=== PATIENT | female | born 1980 | race Two or more races ===

== ENCOUNTER 2022-05-28 12:00 | Emergency (ER) | payer MEDICAID ==
[~2022-05-28] VITALS: Ht 162.6 cm; Wt 81.0 kg
[2022-05-28 12:49] VITALS: BP 108/68
[2022-05-28] MEDS ORDERED: cefTRIAXone SOD 1,000 MG VL IM ONE (13:00)
[2022-05-28 13:14] LABS: Urine Bacteria NONE SEEN /hpf (None Seen); Urine Blood 1+ /uL (Negative); Urine Mucus FEW (None Seen); Urine Specific Gravity 1.026 (1.001-1.035); Urine WBC 11 /hpf (0 - 5)
[2022-05-28] MEDS ORDERED: BACDST PO (13:48)
[2022-05-28] MEDS ORDERED: ACET-1080 PO (13:48)
[2022-05-29] MEDS ORDERED: ACET-1080 PO (17:20)
[2022-05-29] MEDS ORDERED: BACDST PO (17:20)
== END 2022-05-28 13:53 | disposition home or self-care (01) ==
LOC: ER 12:00
DX: N39.0 Urinary tract infection, site not specified (principal); J03.90 Acute tonsillitis, unspecified; R07.89 Other chest pain
CPT/HCPCS: 71045; 81001; 81025; 96372; 99284; J0696

== ENCOUNTER 2022-07-14 12:34 | Emergency (ER) | payer MEDICAID ==
[~2022-07-14] VITALS: Ht 162.6 cm; Wt 78.3 kg
[~2022-07-14 12:34] MED LIST: ACET-1080 PO; BACDST PO
[2022-07-14] MEDS ORDERED: ACETAMINOPHEN 325 MG TAB PO ONE (14:15)
[2022-07-14 15:07] LABS: Urine Bacteria NONE SEEN /hpf (None Seen); Urine Blood 3+ /uL (Negative); Urine Mucus MODERATE (None Seen); Urine Specific Gravity 1.028 (1.001-1.035); Urine WBC 42 /hpf (0 - 5)
[2022-07-14] MEDS ORDERED: CIPROFLOXACIN HCL 500 MG TAB PO ONE (16:00)
[2022-07-14] MEDS ORDERED: CIPR-173 PO (16:01)
[2022-07-14 16:45] VITALS: BP 115/77
== END 2022-07-14 16:53 | disposition home or self-care (01) ==
LOC: ER 12:34
DX: N39.0 Urinary tract infection, site not specified (principal); R50.9 Fever, unspecified; Z88.1 Allergy status to other antibiotic agents; Z88.2 Allergy status to sulfonamides
CPT/HCPCS: 81001

== ENCOUNTER 2023-04-26 12:10 | Inpatient (IN) | payer MEDICAID ==
[~2023-04-26] VITALS: Ht 165.1 cm; Wt 55.1 kg
[~2023-04-26 12:10] MED LIST changes: +CIPR-173 PO
[2023-04-26 15:19] LABS: Basophils # (auto) 0 10 ^3/uL (0-0.2); Basophils % (auto) 0.3 % (0.0-2.0); Eosinophils # (auto) 0.2 10 ^3/uL (0-0.8); Eosinophils % (auto) 1.9 % (0.0-7.0); Hematocrit 39.8 % (36.0-46.0); Hemoglobin 13.4 g/dL (12.2-16.2); Lymphocytes # (auto) 2.3 10 ^3/uL (0.4-5.4); Mean Corpuscular Hemoglobin 29.3 pg (28.0-32.0); Mean Corpuscular Hgb Conc. 33.7 g/dL (32.0-36.0); Monocytes # (auto) 0.9 10 ^3/uL (0-1.3); Monocytes % (auto) 8.8 % (0.0-12.0); Neutrophils # (auto) 6.5 10 ^3/uL (1.6-8.6); Nucleated Red Blood Cells % 0.1 %; Red Blood Cells 4.57 10^6/uL (4.0-5.20); Red Cell Distribution Width 15.8 % (11.8-14.3); White Blood Cell 9.8 10^3/uL (4.4-10.8)
[2023-04-26 15:38] LABS: Alanine Aminotransferase 14 U/L (7-40); Albumin 4.6 g/dL (3.2-4.8); Alkaline Phosphatase 69 U/L (46-116); Anion Gap 10 (5-15); Aspartate Aminotransferase 15 U/L (13-40); BUN/Creatinine Ratio 34.8 (10.0-20.0); Bilirubin, Total 0.7 mg/dL (0.2-1.0); Blood Urea Nitrogen 23 mg/dL (9-23); Calcium 9.8 mg/dL (8.7-10.4); Carbon Dioxide 25 mmol/L (20-30); Chloride 105 mmol/L (98-107); Glucose 100 mg/dL (74-106); Lipase 26 U/L (12-53); Sodium 140 mmol/L (136-145); Total Protein 7.3 g/dL (5.7-8.2)
[2023-04-26 16:39] LABS: INR 1.05 (0.9-1.15)
[2023-04-26 18:10] VITALS: PULSE 95; RESP 14; O2SAT 95
[2023-04-26] MEDS: SODIUM CHLORIDE 0.9% 1,650 ML IV ONE (18:24)
[2023-04-26] MEDS ORDERED: DOCUSATE SOD 100 MG CAP PO PRN (18:30)
[2023-04-26 19:40] VITALS: PULSE 85; RESP 18; O2SAT 97
[2023-04-26 20:52] LABS: Urine Bacteria NONE SEEN /hpf (None Seen); Urine Blood Negative /uL (Negative); Urine Clarity Clear (Clear); Urine Color Yellow (Yellow); Urine Mucus FEW (None Seen); Urine Protein, UAD 1+ (Negative); Urine Specific Gravity 1.027 (1.001-1.035); Urine WBC <1 /hpf (0 - 5); Urine pH 6.5 (5.0-8.0)
[2023-04-26] MEDS: ONDANSETRON HCL 4 MG/2 ML VIAL IV ONE (21:16)
[2023-04-26] MEDS: SODIUM CHLORIDE 0.9% 1,000 ML IV SCH (21:17)
[2023-04-26] MEDS: MORPHINE SULFATE INJ 2 MG/ml SYRG IV PRN (22:52)
[2023-04-26 23:03] LABS: Hematocrit 37.5 % (36.0-46.0); Hemoglobin 12.2 g/dL (12.2-16.2)
[2023-04-27] MEDS: PIPERACILLIN-TAZOB 3.375GM 100 ML IV SCH (00:03)
[2023-04-27] MEDS ORDERED: ACETAMINOPHEN 325 MG TAB PO PRN (02:15)
[2023-04-27] MEDS: ACETAMINOPHEN 650 MG RECT SUPP PR ONE (02:49)
[2023-04-27 06:10] LABS: Alkaline Phosphatase 56 U/L (46-116); Anion Gap 10 (5-15); Aspartate Aminotransferase 15 U/L (13-40); BUN/Creatinine Ratio 21.9 (10.0-20.0); Basophils # (auto) 0 10 ^3/uL (0-0.2); Basophils % (auto) 0.3 % (0.0-2.0); Bilirubin, Total 0.9 mg/dL (0.2-1.0); Blood Urea Nitrogen 14 mg/dL (9-23); Calcium 9.2 mg/dL (8.5-10.1); Carbon Dioxide 23 mmol/L (20-30); Chloride 110 mmol/L (98-107); Eosinophils # (auto) 0.2 10 ^3/uL (0-0.8); Eosinophils % (auto) 2.1 % (0.0-7.0); Glucose 94 mg/dL (74-106); Hematocrit 34.4 % (36.0-46.0); Hemoglobin 11.5 g/dL (12.2-16.2); Lymphocytes # (auto) 2.9 10 ^3/uL (0.4-5.4); Lymphocytes % (auto) 33.1 % (10.0-50.0); Mean Corpuscular Hemoglobin 29.1 pg (28.0-32.0); Mean Corpuscular Hgb Conc. 33.3 g/dL (32.0-36.0); Mean Corpuscular Volume 87.3 fL (80.0-100.0); Monocytes # (auto) 0.9 10 ^3/uL (0-1.3); Monocytes % (auto) 9.9 % (0.0-12.0); Neutrophils # (auto) 4.8 10 ^3/uL (1.6-8.6); Neutrophils % (auto) 54.6 % (37.0-80.0); Nucleated Red Blood Cells % 0.1 %; Potassium 3.1 mmol/L (3.5-5.1); Red Blood Cells 3.94 10^6/uL (4.0-5.20); Red Cell Distribution Width 15.6 % (11.8-14.3); Sodium 143 mmol/L (136-145); Total Protein 6.4 g/dL (5.7-8.2); White Blood Cell 8.9 10^3/uL (4.4-10.8)
[2023-04-27 06:11] LABS: Alanine Aminotransferase 9 U/L (7-40)
[2023-04-27] MEDS: GASTROGRAFIN 120 ML SOL ONE (08:51)
[2023-04-27] MEDS: PANTOPRAZOLE 40 MG/10 ML VIAL INJ IV SCH (10:00)
[2023-04-27] MEDS: ENOXAPARIN SOD 40 MG/0.4 ML SYRINGE SC SCH (10:00)
[2023-04-27] MEDS: ONDANSETRON HCL 4 MG/2 ML VIAL IV PRN (15:55)
[2023-04-27 16:00] VITALS: PULSE 113; RESP 20; O2SAT 96
[2023-04-27] MEDS: LORazepam 2MG/ML-1ML VIAL ONE (16:05)
[2023-04-27] MEDS: LORazepam 2MG/ML-1ML VIAL IV PRN (16:42)
[2023-04-27] MEDS: POTASSIUM CHLORIDE 20 MEQ, LIDOCAINE 1% (LOCAL ANESTH.) 2 ML in SODIUM CHL 0.9% 100 ML IV ONE (17:00)
[2023-04-27] MEDS: D5W/SOD CHL 0.45%/KCL 40MEQ 1,000 ML IV SCH (17:14)
[2023-04-27 23:58] VITALS: BP 101/68; PULSE 82; RESP 16; TEMP 98.8; O2SAT 99
[2023-04-28] VITALS (7 sets, daily range): BP systolic 94–109; BP diastolic 49–65; PULSE 79–84; RESP 14–18; TEMP 97.9–98.9; O2SAT 96–97
[2023-04-28 07:37] LABS: Anion Gap 6 (5-15); Carbon Dioxide 26 mmol/L (20-30); Chloride 109 mmol/L (98-107); Potassium 3.6 mmol/L (3.5-5.1); Sodium 141 mmol/L (136-145)
[2023-04-28 07:38] LABS: Calcium 9.4 mg/dL (8.5-10.1)
[2023-04-28 07:43] LABS: BUN/Creatinine Ratio 13.3 (10.0-20.0); Blood Urea Nitrogen 8 mg/dL (9-23); Glucose 95 mg/dL (74-106)
[2023-04-28 07:45] LABS: Basophils # (auto) 0 10 ^3/uL (0-0.2); Basophils % (auto) 0.3 % (0.0-2.0); Eosinophils # (auto) 0.3 10 ^3/uL (0-0.8); Hematocrit 31.8 % (36.0-46.0); Hemoglobin 10.7 g/dL (12.2-16.2); Lymphocytes # (auto) 1.4 10 ^3/uL (0.4-5.4); Mean Corpuscular Hemoglobin 29.6 pg (28.0-32.0); Mean Corpuscular Hgb Conc. 33.6 g/dL (32.0-36.0); Mean Corpuscular Volume 87.9 fL (80.0-100.0); Monocytes # (auto) 0.7 10 ^3/uL (0-1.3); Monocytes % (auto) 10.8 % (0.0-12.0); Neutrophils # (auto) 4.1 10 ^3/uL (1.6-8.6); Neutrophils % (auto) 62.9 % (37.0-80.0); Red Blood Cells 3.62 10^6/uL (4.0-5.20); Red Cell Distribution Width 15.9 % (11.8-14.3); White Blood Cell 6.5 10^3/uL (4.4-10.8)
[2023-04-28] MEDS: PANTOPRAZOLE 40 MG/10 ML VIAL INJ IV SCH (13:46)
[2023-04-28] MEDS ORDERED: MIRT1TAB39 PO (16:35)
[2023-04-28] MEDS ORDERED: CARB25TA77 (16:35)
[2023-04-28] MEDS ORDERED: ASPI81CH59 PO (16:35)
[2023-04-28] MEDS ORDERED: ASPI-463 OR (16:35)
[2023-04-28] MEDS ORDERED: ERGO1CAP12 PO (16:35)
[2023-04-28] MEDS ORDERED: ARIP5TAB36 PO (16:35)
[2023-04-28] MEDS ORDERED: HYDR50TA69 PO (16:35)
[2023-04-28] MEDS ORDERED: SIMV40TA18 PO (16:35)
[2023-04-28] MEDS ORDERED: VENL225T10 PO (16:35)
[2023-04-28] MEDS ORDERED: TRAZ-184 PO (16:35)
[2023-04-29] VITALS (7 sets, daily range): BP systolic 87–97; BP diastolic 45–59; PULSE 76–89; RESP 18–20; TEMP 97.9–98.3; O2SAT 95–98
[2023-04-29 05:07] LABS: Basophils # (auto) 0 10 ^3/uL (0-0.2); Basophils % (auto) 0.4 % (0.0-2.0); Eosinophils # (auto) 0.2 10 ^3/uL (0-0.8); Eosinophils % (auto) 3.7 % (0.0-7.0); Hematocrit 34.7 % (36.0-46.0); Hemoglobin 11.5 g/dL (12.2-16.2); Lymphocytes # (auto) 1.6 10 ^3/uL (0.4-5.4); Mean Corpuscular Hemoglobin 29.2 pg (28.0-32.0); Mean Corpuscular Hgb Conc. 33.3 g/dL (32.0-36.0); Mean Corpuscular Volume 87.8 fL (80.0-100.0); Monocytes # (auto) 0.6 10 ^3/uL (0-1.3); Monocytes % (auto) 9.4 % (0.0-12.0); Neutrophils # (auto) 4.2 10 ^3/uL (1.6-8.6); Neutrophils % (auto) 62.5 % (37.0-80.0); Nucleated Red Blood Cells % 0.1 %; Red Blood Cells 3.95 10^6/uL (4.0-5.20); Red Cell Distribution Width 15.3 % (11.8-14.3); White Blood Cell 6.8 10^3/uL (4.4-10.8)
[2023-04-29 05:13] LABS: Chloride 105 mmol/L (98-107); Potassium 3.6 mmol/L (3.5-5.1); Sodium 137 mmol/L (136-145)
[2023-04-29 05:14] LABS: Anion Gap 6 (5-15); Carbon Dioxide 26 mmol/L (20-30)
[2023-04-29 05:15] LABS: Calcium 8.9 mg/dL (8.5-10.1)
[2023-04-29 05:20] LABS: BUN/Creatinine Ratio 9.1 (10.0-20.0); Blood Urea Nitrogen 6 mg/dL (9-23); Glucose 107 mg/dL (74-106)
[2023-04-29] MEDS: LORazepam 2MG/ML-1ML VIAL IV PRN (23:37)
[2023-04-30] VITALS (7 sets, daily range): BP systolic 84–101; BP diastolic 52–57; PULSE 79–97; RESP 14–20; TEMP 97.5–98.9; O2SAT 95–98
[2023-04-30 05:11] LABS: Basophils # (auto) 0 10 ^3/uL (0-0.2); Basophils % (auto) 0.6 % (0.0-2.0); Eosinophils # (auto) 0.2 10 ^3/uL (0-0.8); Eosinophils % (auto) 4.1 % (0.0-7.0); Hematocrit 35.5 % (36.0-46.0); Hemoglobin 11.8 g/dL (12.2-16.2); Lymphocytes % (auto) 19.3 % (10.0-50.0); Mean Corpuscular Hgb Conc. 33.4 g/dL (32.0-36.0); Monocytes # (auto) 0.6 10 ^3/uL (0-1.3); Monocytes % (auto) 10.8 % (0.0-12.0); Neutrophils # (auto) 3.3 10 ^3/uL (1.6-8.6); Neutrophils % (auto) 65.2 % (37.0-80.0); Red Blood Cells 4.08 10^6/uL (4.0-5.20); Red Cell Distribution Width 15.6 % (11.8-14.3); White Blood Cell 5.1 10^3/uL (4.4-10.8)
[2023-04-30 05:35] LABS: Alkaline Phosphatase 51 U/L (46-116); Anion Gap 6 (5-15); Calcium 9.6 mg/dL (8.7-10.4); Carbon Dioxide 25 mmol/L (20-30); Chloride 107 mmol/L (98-107); Glucose 114 mg/dL (74-106); Potassium 3.6 mmol/L (3.5-5.1); Sodium 138 mmol/L (136-145)
[2023-04-30 05:36] LABS: Albumin 3.9 g/dL (3.2-4.8); Aspartate Aminotransferase 12 U/L (13-40)
[2023-04-30 05:37] LABS: Bilirubin, Total 0.7 mg/dL (0.2-1.0); Total Protein 6.5 g/dL (5.7-8.2)
[2023-04-30 05:45] LABS: Alanine Aminotransferase < 9 U/L (7-40); BUN/Creatinine Ratio 7.7 (10.0-20.0); Blood Urea Nitrogen < 5 mg/dL (9-23)
[2023-04-30] MEDS: ACETAMINOPHEN 325 MG RECT SUPP PR PRN (14:00)
[2023-04-30] MEDS ORDERED: PATIENTS OWN MEDICATION IM SCH (15:15)
[2023-05-01 04:53] VITALS: BP 88/55; PULSE 72; RESP 20; TEMP 98.4; O2SAT 98
[2023-05-01 08:00] VITALS: PULSE 87; RESP 16; O2SAT 97
[2023-05-01 09:00] VITALS: BP 80/53; PULSE 86; RESP 20; TEMP 97.4; O2SAT 97
[2023-05-01] MEDS: ACETAMINOPHEN 500 MG TAB PO PRN (12:25)
[2023-05-01 13:00] VITALS: BP 88/53; PULSE 69; RESP 20; TEMP 97.5; O2SAT 100
[2023-05-01 17:00] VITALS: BP 91/54; PULSE 77; RESP 20; TEMP 98; O2SAT 100
[2023-05-01 22:00] VITALS: BP 98/60; PULSE 92; RESP 18; TEMP 98.6; O2SAT 98
[2023-05-02 05:27] VITALS: BP 101/67; PULSE 103; RESP 18; TEMP 98.6; O2SAT 94
[2023-05-02 08:00] VITALS: O2SAT 97
[2023-05-02 09:00] VITALS: BP 115/90; PULSE 115; RESP 16; TEMP 98.1; O2SAT 98
[2023-05-02 12:52] VITALS: BP 100/72; PULSE 78; RESP 17; TEMP 97.9; O2SAT 98
[2023-05-02 16:43] VITALS: BP 113/60; PULSE 112; RESP 17; TEMP 98.4; O2SAT 97
[2023-05-02 21:40] VITALS: BP 93/59; PULSE 96; RESP 16; TEMP 98.2; O2SAT 97
[2023-05-03] VITALS (7 sets, daily range): BP systolic 88–111; BP diastolic 27–77; PULSE 63–97; RESP 16–18; TEMP 97.8–98.2; O2SAT 96–100
[2023-05-03] MEDS: D5W/SOD CHL 0.45%/KCL 40MEQ 1,000 ML IV SCH (17:15)
[2023-05-03] MEDS ORDERED: PPN PER PHARMACY 0 ML IV SCH (17:15)
[2023-05-03] MEDS ORDERED: DEXTROSE (50%) 50ML SYRG IV SCH (18:15)
[2023-05-03 19:47] LABS: Magnesium 1.9 mg/dL (1.6-2.6)
[2023-05-03 19:49] LABS: Phosphorus 3.4 mg/dL (2.4-5.1)
[2023-05-03] MEDS: AMINO ACID INFUSION IN D10W 1,000 ML IV ONE (19:49)
[2023-05-03] MEDS: ACCU-CHEK COMFORT CURVE STRIP VI SCH (23:46)
[2023-05-03] MEDS: METOCLOPRAMIDE HCL 5MG/ml INJ 2ml VIAL IV SCH (23:46)
[2023-05-03] MEDS: InsuLIN REG 1unit/0.01ml Soln (100units/ml) SC SCH (23:48)
[2023-05-04] VITALS (7 sets, daily range): BP systolic 87–158; BP diastolic 52–86; PULSE 67–101; RESP 16–18; TEMP 97.5–98.4; O2SAT 97–98
[2023-05-04 06:58] LABS: Basophils # (auto) 0 10 ^3/uL (0-0.2); Eosinophils # (auto) 0.2 10 ^3/uL (0-0.8); Eosinophils % (auto) 5.6 % (0.0-7.0); Hematocrit 34.8 % (36.0-46.0); Hemoglobin 11.5 g/dL (12.2-16.2); Lymphocytes # (auto) 1.6 10 ^3/uL (0.4-5.4); Lymphocytes % (auto) 38.6 % (10.0-50.0); Mean Corpuscular Hemoglobin 29.3 pg (28.0-32.0); Mean Corpuscular Hgb Conc. 32.9 g/dL (32.0-36.0); Monocytes # (auto) 0.4 10 ^3/uL (0-1.3); Monocytes % (auto) 10.7 % (0.0-12.0); Neutrophils # (auto) 1.8 10 ^3/uL (1.6-8.6); Neutrophils % (auto) 44.1 % (37.0-80.0); Red Blood Cells 3.91 10^6/uL (4.0-5.20); Red Cell Distribution Width 16.2 % (11.8-14.3); White Blood Cell 4.2 10^3/uL (4.4-10.8)
[2023-05-04 07:08] LABS: Alanine Aminotransferase 27 U/L (7-40); Albumin 3.7 g/dL (3.2-4.8); Alkaline Phosphatase 48 U/L (46-116); Anion Gap 6 (5-15); Aspartate Aminotransferase 27 U/L (13-40); Bilirubin, Total 0.7 mg/dL (0.2-1.0); Calcium 9.2 mg/dL (8.7-10.4); Carbon Dioxide 23 mmol/L (20-30); Chloride 110 mmol/L (98-107); Glucose 111 mg/dL (74-106); Magnesium 1.8 mg/dL (1.6-2.6); Phosphorus 3.2 mg/dL (2.4-5.1); Potassium 3.5 mmol/L (3.5-5.1); Sodium 139 mmol/L (136-145)
[2023-05-04 07:16] LABS: BUN/Creatinine Ratio 8.3 (10.0-20.0); Blood Urea Nitrogen < 5 mg/dL (9-23)
[2023-05-04] MEDS: PPN PER PHARMACY IV NR (20:36)
[2023-05-05] VITALS (7 sets, daily range): BP systolic 92–139; BP diastolic 52–86; PULSE 91–123; RESP 20; TEMP 97.4–100.2; O2SAT 94–99
[2023-05-05 05:40] LABS: Alanine Aminotransferase 33 U/L (7-40); Albumin 3.9 g/dL (3.2-4.8); Alkaline Phosphatase 50 U/L (46-116); Anion Gap 7 (5-15); Aspartate Aminotransferase 30 U/L (13-40); BUN/Creatinine Ratio 10.5 (10.0-20.0); Bilirubin, Total 0.5 mg/dL (0.2-1.0); Blood Urea Nitrogen 6 mg/dL (9-23); Carbon Dioxide 23 mmol/L (20-30); Chloride 110 mmol/L (98-107); Glucose 105 mg/dL (74-106); Magnesium 1.8 mg/dL (1.6-2.6); Phosphorus 2.6 mg/dL (2.4-5.1); Potassium 3.2 mmol/L (3.5-5.1); Sodium 140 mmol/L (136-145)
[2023-05-05 05:41] LABS: Total Protein 6.5 g/dL (5.7-8.2)
[2023-05-05] MEDS: POLYETHYLENE GLYCOL 17 GM PWDR PO SCH (10:10)
[2023-05-05] MEDS ORDERED: VANCOMYCIN PER PHARMACY 0 MG IV SCH (10:45)
[2023-05-05] MEDS: POTASSIUM PHOSPHATE 44 MEQ in D5W 5% 250 ML IV ONE (11:00)
[2023-05-05] MEDS: VANCOMYCIN 1GM/200ML 200 ML IV ONE (11:35)
[2023-05-05] MEDS: PPN PER PHARMACY IV NR (20:16)
[2023-05-05] MEDS: VANCOMYCIN 750mg/150ml 150 ML IV SCH (21:00)
[2023-05-06] VITALS (7 sets, daily range): BP systolic 95–120; BP diastolic 60–95; PULSE 82–100; RESP 16–22; TEMP 36.9; O2SAT 92–100
[2023-05-06 06:20] LABS: Basophils # (auto) 0.1 10 ^3/uL (0-0.2); Basophils % (auto) 0.7 % (0.0-2.0); Eosinophils # (auto) 0.2 10 ^3/uL (0-0.8); Hematocrit 36.7 % (36.0-46.0); Hemoglobin 12.4 g/dL (12.2-16.2); Lymphocytes # (auto) 1.8 10 ^3/uL (0.4-5.4); Lymphocytes % (auto) 24.2 % (10.0-50.0); Mean Corpuscular Hemoglobin 29.7 pg (28.0-32.0); Mean Corpuscular Hgb Conc. 33.9 g/dL (32.0-36.0); Mean Corpuscular Volume 87.6 fL (80.0-100.0); Monocytes # (auto) 0.7 10 ^3/uL (0-1.3); Monocytes % (auto) 8.9 % (0.0-12.0); Neutrophils # (auto) 4.8 10 ^3/uL (1.6-8.6); Neutrophils % (auto) 64.2 % (37.0-80.0); Nucleated Red Blood Cells % 0.2 %; Red Blood Cells 4.19 10^6/uL (4.0-5.20); Red Cell Distribution Width 15.3 % (11.8-14.3); White Blood Cell 7.5 10^3/uL (4.4-10.8)
[2023-05-06 06:44] LABS: Alanine Aminotransferase 37 U/L (7-40); Albumin 4.1 g/dL (3.2-4.8); Alkaline Phosphatase 55 U/L (46-116); Anion Gap 7 (5-15); Aspartate Aminotransferase 31 U/L (13-40); Bilirubin, Total 0.5 mg/dL (0.2-1.0); Blood Urea Nitrogen 7 mg/dL (9-23); Calcium 9.1 mg/dL (8.7-10.4); Carbon Dioxide 23 mmol/L (20-30); Chloride 108 mmol/L (98-107); Glucose 112 mg/dL (74-106); Magnesium 2.3 mg/dL (1.6-2.6); Phosphorus 2.3 mg/dL (2.4-5.1); Potassium 3.5 mmol/L (3.5-5.1); Sodium 138 mmol/L (136-145); Total Protein 6.9 g/dL (5.7-8.2)
[2023-05-06] MEDS: cefTRIAXone 1GM/50ML D5W 50 ML IV SCH (09:58)
[2023-05-06] MEDS: POTASSIUM PHOSPHATE 22 MEQ in SODIUM CHL 0.9% 100 ML IV ONE (18:22)
[2023-05-06] MEDS: PPN PER PHARMACY IV NR (20:39)
[2023-05-07 04:45] VITALS: BP 88/58; PULSE 110; RESP 20; TEMP 98.9; O2SAT 97
[2023-05-07] MEDS: SODIUM CHLORIDE 0.9% 500 ML IV ONE (05:22)
[2023-05-07 07:30] VITALS: TEMP 37.2
[2023-05-07 07:53] LABS: Calcium 8.8 mg/dL (8.5-10.1)
[2023-05-07 07:58] LABS: BUN/Creatinine Ratio 20.8 (10.0-20.0)
[2023-05-07 08:00] LABS: Albumin 3.6 g/dL (3.2-4.8); Phosphorus 3.3 mg/dL (2.4-5.1)
[2023-05-07 08:51] VITALS: BP 101/47; PULSE 90; RESP 18; TEMP 97.6; O2SAT 100
[2023-05-07 09:15] LABS: Magnesium 2.2 mg/dL (1.6-2.6)
[2023-05-07 12:56] VITALS: BP 116/57; PULSE 96; RESP 18; TEMP 98; O2SAT 96
[2023-05-07 16:52] VITALS: BP 126/75; PULSE 110; RESP 22; TEMP 97.9; O2SAT 96
[2023-05-07 20:00] VITALS: RESP 16
[2023-05-07] MEDS: PPN PER PHARMACY IV NR (23:43)
[2023-05-07] MEDS: LORazepam 2MG/ML-1ML VIAL IV PRN (23:46)
[2023-05-08] VITALS (8 sets, daily range): BP systolic 105–150; BP diastolic 51–86; PULSE 104–117; RESP 16–62; TEMP 96.9–98.5; O2SAT 95–99
[2023-05-08] MEDS: MORPHINE SULFATE INJ 2 MG/ml SYRG IV PRN (04:41)
[2023-05-08 08:02] LABS: Alanine Aminotransferase 36 U/L (7-40); Albumin 3.9 g/dL (3.2-4.8); Alkaline Phosphatase 57 U/L (46-116); Anion Gap 8 (5-15); Aspartate Aminotransferase 27 U/L (13-40); Calcium 8.9 mg/dL (8.7-10.4); Carbon Dioxide 23 mmol/L (20-30); Chloride 107 mmol/L (98-107); Glucose 117 mg/dL (74-106); Phosphorus 2.3 mg/dL (2.4-5.1); Potassium 3.4 mmol/L (3.5-5.1); Sodium 138 mmol/L (136-145)
[2023-05-08 08:20] LABS: Bilirubin, Total 0.4 mg/dL (0.2-1.0); Total Protein 6.6 g/dL (5.7-8.2)
[2023-05-08 09:41] LABS: BUN/Creatinine Ratio 19.6 (10.0-20.0); Blood Urea Nitrogen 10 mg/dL (9-23)
[2023-05-08] MEDS: POTASSIUM PHOSPHATE 22 MEQ in SODIUM CHL 0.9% 100 ML IV ONE (12:00)
[2023-05-08] MEDS: PPN PER PHARMACY IV NR (19:55)
[2023-05-09 05:25] VITALS: BP_SYST 88; BP_SYST 93; BP_DIAS 49; BP_DIAS 58; PULSE 60; RESP 16; TEMP 97.6; O2SAT 98
[2023-05-09 06:47] LABS: Alanine Aminotransferase 33 U/L (7-40); Albumin 3.5 g/dL (3.2-4.8); Alkaline Phosphatase 54 U/L (46-116); Anion Gap 6 (5-15); Aspartate Aminotransferase 26 U/L (13-40); BUN/Creatinine Ratio 28.9 (10.0-20.0); Blood Urea Nitrogen 13 mg/dL (9-23); Calcium 8.7 mg/dL (8.7-10.4); Carbon Dioxide 25 mmol/L (20-30); Chloride 104 mmol/L (98-107); Glucose 196 mg/dL (74-106); Magnesium 2.3 mg/dL (1.6-2.6); Potassium 4.7 mmol/L (3.5-5.1); Sodium 135 mmol/L (136-145)
[2023-05-09 06:48] LABS: Bilirubin, Total 0.4 mg/dL (0.2-1.0); Phosphorus 4.1 mg/dL (2.4-5.1); Total Protein 5.7 g/dL (5.7-8.2)
[2023-05-09 08:00] VITALS: RESP 18
[2023-05-09 09:35] VITALS: BP 95/53; PULSE 89; RESP 18; TEMP 96.9; O2SAT 99
[2023-05-09 13:39] VITALS: BP 122/52; PULSE 114; RESP 20; TEMP 97.4; O2SAT 99
[2023-05-09 17:22] VITALS: BP 117/75; PULSE 111; RESP 20; TEMP 98; O2SAT 99
[2023-05-09 21:43] VITALS: BP 118/59; PULSE 137; RESP 22; TEMP 98.4; O2SAT 94
[2023-05-10] VITALS (7 sets, daily range): BP systolic 100–113; BP diastolic 53–83; PULSE 82–101; RESP 19–20; TEMP 36.6; O2SAT 95–98
[2023-05-10] MEDS: ALBUMIN 5% 250 ML IV ONE (06:39)
[2023-05-10] MEDS: DIPHENOXYLATE W/ATROPINE 2.5 MG TAB PO ONE (13:07)
[2023-05-10] MEDS ORDERED: TRAM50TA2 PO (15:08)
[2023-05-10] MEDS: LORazepam 0.5 MG TAB PO ONE (15:44)
== END 2023-05-10 17:45 | disposition home health service (06) | DRG 247 ==
LOC: EDUNIT# 12:10 → ER 12:10 → EDBD 12:10 → OVERFLOW 18:34 → WEST WING 04-27 23:09
PROVIDERS: ADMIT Nurse Practitioner Family; ATTEND Nurse Practitioner Family
DX: K56.7 Ileus, unspecified (principal); R65.11 Systemic inflammatory response syndrome (SIRS) of non-infectious origin with acute organ dysfunction; E87.8 Other disorders of electrolyte and fluid balance, not elsewhere classified; I95.89 Other hypotension; K80.10 Calculus of gallbladder with chronic cholecystitis without obstruction; E86.0 Dehydration; E87.6 Hypokalemia; I10 Essential (primary) hypertension; N94.6 Dysmenorrhea, unspecified; N39.0 Urinary tract infection, site not specified; F79 Unspecified intellectual disabilities; R93.89 Abnormal findings on diagnostic imaging of other specified body structures; R62.50 Unspecified lack of expected normal physiological development in childhood; N92.0 Excessive and frequent menstruation with regular cycle; Z74.01 Bed confinement status; Z99.3 Dependence on wheelchair; Z90.49 Acquired absence of other specified parts of digestive tract; Z79.82 Long term (current) use of aspirin; Z79.899 Other long term (current) drug therapy; Z87.891 Personal history of nicotine dependence
CPT/HCPCS: 36415; 71045; 74018; 74176; 74177; 74250; 76705; 76856; 78226; 80048; 80053; 80069; 80202; 81001; 82962; 83605; 83690; 83735; 84100; 84478; 84702; 85014; 85018; 85025; 85610; 87040; 87086; 96360; 97110; 97116; 97163; 97530; 99291; C9113; G0378; J1815; J2001; J2405; J2543; J7060

== ENCOUNTER 2023-05-20 18:44 | Emergency (ER) | payer MEDICAID ==
[~2023-05-20] VITALS: Ht 160 cm; Wt 60.0 kg
[~2023-05-20 18:44] MED LIST changes: +ARIP5TAB36 PO; +ASPI-463 OR; +ASPI81CH59 PO; +CARB25TA77; +ERGO1CAP12 PO; +HYDR50TA69 PO; +MIRT1TAB39 PO; +SIMV40TA18 PO; +TRAM50TA2 PO; +TRAZ-184 PO; +VENL225T10 PO
[2023-05-20] MEDS: FLEET ENEMA(ADULT) 135 ML PR ONE (21:15)
[2023-05-20] MEDS: LACTULOSE 20Gm/30ML SOLN PO ONE (21:53)
[2023-05-20] MEDS: SODIUM CHLORIDE 0.9% 1,000 ML IV ONE (22:05)
[2023-05-20 23:10] VITALS: PULSE 83; RESP 19; TEMP 98; O2SAT 98
[2023-05-21] MEDS ORDERED: ACET500T58 PO (00:37)
[2023-05-21] MEDS ORDERED: LACT10SO3 PO (00:37)
[2023-05-21] MEDS ORDERED: DOCU-94 PO (00:37)
[2023-05-21] MEDS: SODIUM CHLORIDE 0.9% 1,000 ML IV ONE (00:45)
[2023-05-21] MEDS: FLEET ENEMA(ADULT) 135 ML PR ONE (01:00)
[2023-05-21 03:00] VITALS: BP 113/77; PULSE 115; RESP 18; O2SAT 99
== END 2023-05-21 03:57 | disposition home or self-care (01) ==
LOC: ER 18:44
DX: K59.00 Constipation, unspecified (principal)
CPT/HCPCS: 74018; 96360; 96361; 99283; J7030

== ENCOUNTER 2023-08-25 22:09 | Inpatient (IN) | payer MEDICAID ==
[~2023-08-25] VITALS: Ht 162.6 cm; Wt 44.6 kg
[~2023-08-25 22:09] MED LIST changes: +ACET500T58 PO; +ARIP1TAB59 PO; -ARIP5TAB36 PO; +DOCU-94 PO; +LACT10SO3 PO; -VENL225T10 PO; +VENL225T20 PO
[2023-08-26] VITALS (7 sets, daily range): BP systolic 91–113; BP diastolic 48–78; PULSE 60–102; RESP 15–20; TEMP 97.6–98.4; O2SAT 97–100
[2023-08-26] MEDS ORDERED: TRAZ-184 PO ×2 (16:03)
[2023-08-26] MEDS ORDERED: VENL225T20 PO (16:03)
[2023-08-26] MEDS ORDERED: ERGO1CAP23 PO (16:03)
[2023-08-26] MEDS ORDERED: CARB25TA77 PO ×2 (16:03)
[2023-08-26] MEDS ORDERED: SIMV40TA18 PO ×2 (16:03)
[2023-08-26] MEDS ORDERED: ASPI-543 PO (16:03)
[2023-08-26] MEDS ORDERED: ARIP2TAB PO ×2 (16:03)
[2023-08-26] MEDS ORDERED: DOCU-94 PO (16:06)
[2023-08-26] MEDS ORDERED: MIRT-94 PO (16:06)
[2023-08-26] MEDS ORDERED: HYDR50TA69 PO (16:06)
[2023-08-26] MEDS ORDERED: TRAM50TA2 PO (16:06)
[2023-08-26] MEDS ORDERED: MORPHINE SULFATE INJ 2 MG/ml SYRG IV PRN (17:45)
[2023-08-26] MEDS ORDERED: POTASSIUM EFFERVESENT TAB 25 MEQ PO ONE (17:45)
[2023-08-26] MEDS ORDERED: ONDANSETRON HCL 4 MG/2 ML VIAL IV PRN (17:45)
[2023-08-26] MEDS ORDERED: DOCUSATE SOD 100 MG CAP PO PRN (17:45)
[2023-08-26] MEDS ORDERED: ERGOCALCIFEROL 50,000 UNIT(1.25MG) CAP PO SCH (17:45)
[2023-08-26] MEDS: SODIUM CHLORIDE 0.9% 1,000 ML IV SCH (18:35)
[2023-08-26] MEDS: PANTOPRAZOLE 40 MG/10 ML VIAL INJ IV ONE (18:51)
[2023-08-26 19:31] LABS: Magnesium 2.1 mg/dL (1.6-2.6)
[2023-08-26 19:32] LABS: Phosphorus 3.2 mg/dL (2.4-5.1)
[2023-08-26 20:13] LABS: INR 1.05 (0.9-1.15); Prothrombin Time 11.1 sec (9.3-11.8)
[2023-08-26] MEDS: ATORVASTATIN 20 MG TAB PO SCH (21:34)
[2023-08-26] MEDS: CARBIDOPA W LEVODOPA 25/100mg TABLET PO SCH (21:34)
[2023-08-26] MEDS: traZODone HCL 50 MG TAB PO SCH (21:34)
[2023-08-26] MEDS: MIRTAZAPINE 30 MG TAB PO SCH (21:35)
[2023-08-27] VITALS (7 sets, daily range): BP systolic 78–112; BP diastolic 42–61; PULSE 66–75; RESP 18–20; TEMP 97.7–98.5; O2SAT 92–98
[2023-08-27 06:32] LABS: Basophils # (auto) 0.1 10 ^3/uL (0-0.2); Eosinophils # (auto) 0.1 10 ^3/uL (0-0.8); Eosinophils % (auto) 2.2 % (0.0-7.0); Hematocrit 27.9 % (36.0-46.0); Hemoglobin 9.2 g/dL (12.2-16.2); Lymphocytes # (auto) 2.3 10 ^3/uL (0.4-5.4); Lymphocytes % (auto) 36.4 % (10.0-50.0); Mean Corpuscular Hemoglobin 28.6 pg (28.0-32.0); Mean Corpuscular Volume 86.6 fL (80.0-100.0); Monocytes # (auto) 0.5 10 ^3/uL (0-1.3); Monocytes % (auto) 7.4 % (0.0-12.0); Neutrophils # (auto) 3.3 10 ^3/uL (1.6-8.6); Nucleated Red Blood Cells % 0.1 %; Red Blood Cells 3.22 10^6/uL (4.0-5.20); Red Cell Distribution Width 16.2 % (11.8-14.3); White Blood Cell 6.2 10^3/uL (4.4-10.8)
[2023-08-27 06:54] LABS: Alanine Aminotransferase 24 U/L (7-40); Albumin 4.1 g/dL (3.2-4.8); Alkaline Phosphatase 56 U/L (46-116); Anion Gap 10 (5-15); Aspartate Aminotransferase 19 U/L (13-40); BUN/Creatinine Ratio 27.6 (10.0-20.0); Bilirubin, Total 0.3 mg/dL (0.2-1.0); Blood Urea Nitrogen 16 mg/dL (9-23); Calcium 10.3 mg/dL (8.7-10.4); Carbon Dioxide 28 mmol/L (20-30); Chloride 109 mmol/L (98-107); Glucose 91 mg/dL (74-106); Potassium 3.6 mmol/L (3.5-5.1); Sodium 147 mmol/L (136-145)
[2023-08-27 06:55] LABS: Total Protein 7.1 g/dL (5.7-8.2)
[2023-08-27] MEDS: Ensure Enlive Chocolate 8oz Bottle PO SCH (07:00)
[2023-08-27] MEDS: MIDODRINE HCL 10 MG TAB PO ONE (09:00)
[2023-08-27] MEDS: ENOXAPARIN SOD 30 MG/0.3 ML SYRINGE SC SCH (10:00)
[2023-08-27] MEDS: PANTOPRAZOLE 40 MG/10 ML VIAL INJ IV SCH (10:46)
[2023-08-27] MEDS: ASPirin-EC 81 mg tab PO SCH (10:47)
[2023-08-27] MEDS: MIDODRINE HCL 10 MG TAB PO SCH (10:53)
[2023-08-28] VITALS (10 sets, daily range): BP systolic 77–140; BP diastolic 34–55; PULSE 51–70; RESP 14–18; TEMP 97–98.3; O2SAT 95–100
[2023-08-28] MEDS: ENOXAPARIN SOD 40 MG/0.4 ML SYRINGE SC SCH (10:01)
[2023-08-28] MEDS: traMADol HCL 50 MG TAB PO PRN (20:31)
[2023-08-29] VITALS (8 sets, daily range): BP systolic 80–92; BP diastolic 34–53; PULSE 51–94; RESP 14–18; TEMP 97.8–99.1; O2SAT 97–100
[2023-08-29 08:49] LABS: Basophils # (auto) 0 10 ^3/uL (0-0.2); Basophils % (auto) 0.6 % (0.0-2.0); Eosinophils # (auto) 0.4 10 ^3/uL (0-0.8); Eosinophils % (auto) 6.1 % (0.0-7.0); Hematocrit 29.9 % (36.0-46.0); Hemoglobin 9.7 g/dL (12.2-16.2); Lymphocytes # (auto) 2.1 10 ^3/uL (0.4-5.4); Lymphocytes % (auto) 35.5 % (10.0-50.0); Mean Corpuscular Hemoglobin 27.5 pg (28.0-32.0); Mean Corpuscular Hgb Conc. 32.5 g/dL (32.0-36.0); Mean Corpuscular Volume 84.7 fL (80.0-100.0); Monocytes # (auto) 0.5 10 ^3/uL (0-1.3); Monocytes % (auto) 8.2 % (0.0-12.0); Neutrophils % (auto) 49.6 % (37.0-80.0); Nucleated Red Blood Cells % 0.2 %; Red Blood Cells 3.52 10^6/uL (4.0-5.20); Red Cell Distribution Width 16.2 % (11.8-14.3)
[2023-08-29 09:19] LABS: Alanine Aminotransferase 10 U/L (7-40); Alkaline Phosphatase 65 U/L (46-116); Anion Gap 4 (5-15); BUN/Creatinine Ratio 24.6 (10.0-20.0); Blood Urea Nitrogen 15 mg/dL (9-23); Calcium 10.2 mg/dL (8.5-10.1); Carbon Dioxide 32 mmol/L (20-30); Chloride 103 mmol/L (98-107); Glucose 82 mg/dL (74-106); Potassium 4.2 mmol/L (3.5-5.1); Sodium 139 mmol/L (136-145)
[2023-08-29 09:20] LABS: Aspartate Aminotransferase 19 U/L (13-40); Bilirubin, Total 0.2 mg/dL (0.2-1.0); Total Protein 6.8 g/dL (5.7-8.2)
[2023-08-30 05:00] VITALS: BP 80/46; PULSE 62; RESP 18; TEMP 98.2; O2SAT 100
[2023-08-30 08:00] VITALS: PULSE 58
[2023-08-30 08:10] VITALS: RESP 15; O2SAT 98
[2023-08-30 10:04] VITALS: BP_SYST 139; BP_SYST 86; BP_DIAS 56; BP_DIAS 90; PULSE 50; PULSE 66; RESP 18; RESP 19; TEMP 97.5; TEMP 97.7; O2SAT 98; O2SAT 99
[2023-08-30 10:56] VITALS: BP 86/56; PULSE 66; RESP 19; TEMP 97.7; O2SAT 98
[2023-08-30] MEDS ORDERED: MID10T PO ×2 (11:46)
[2023-08-30 12:49] VITALS: BP 84/43
== END 2023-08-30 14:23 | disposition home or self-care (01) | DRG 207 ==
LOC: WEST WING 08-26 13:17 → TELE-CENTR 08-26 19:55
PROVIDERS: ADMIT Internal Medicine; ATTEND Internal Medicine
DX: I95.89 Other hypotension (principal); G93.49 Other encephalopathy; R53.2 Functional quadriplegia; G30.9 Alzheimer's disease, unspecified; F02.80 Dementia in other diseases classified elsewhere, unspecified severity, without behavioral disturbance, psychotic disturbance, mood disturbance, and anxiety; S06.9X0A Unspecified intracranial injury without loss of consciousness, initial encounter; E78.5 Hyperlipidemia, unspecified; E87.6 Hypokalemia; Z68.1 Body mass index [BMI] 19.9 or less, adult; Z99.3 Dependence on wheelchair; X58.XXXA Exposure to other specified factors, initial encounter; Y93.89 Activity, other specified; Y92.89 Other specified places as the place of occurrence of the external cause; Y99.8 Other external cause status; Y84.8 Other medical procedures as the cause of abnormal reaction of the patient, or of later complication, without mention of misadventure at the time of the procedure
CPT/HCPCS: 36415; 71045; 80053; 82533; 83735; 84100; 84439; 84443; 85025; 85610; 87081; 93306; C9113; G0378

== ENCOUNTER 2023-09-04 18:24 | Inpatient (IN) | payer MEDICAID ==
[~2023-09-04] VITALS: Ht 160 cm; Wt 41.0 kg
[~2023-09-04 18:24] MED LIST changes: +ARIP2TAB PO; +ASPI-543 PO; +CARB25TA77 PO; +ERGO1CAP23 PO; +MID10T PO; +MIRT-94 PO
[2023-09-04 18:35] VITALS: PULSE 47; RESP 12; O2SAT 97
[2023-09-04] MEDS: SODIUM CHLORIDE 0.9% 1,000 ML IV ONE ×2 (18:38→22:13)
[2023-09-04] MEDS: MIDODRINE HCL 10 MG TAB PO ONE (18:44)
[2023-09-04 18:54] LABS: Basophils # (auto) 0.1 10 ^3/uL (0-0.2); Basophils % (auto) 1.8 % (0.0-2.0); Eosinophils # (auto) 0.2 10 ^3/uL (0-0.8); Eosinophils % (auto) 3.4 % (0.0-7.0); Hematocrit 27.8 % (36.0-46.0); Hemoglobin 8.9 g/dL (12.2-16.2); Lymphocytes # (auto) 2.9 10 ^3/uL (0.4-5.4); Lymphocytes % (auto) 54.6 % (10.0-50.0); Mean Corpuscular Hemoglobin 27.1 pg (28.0-32.0); Mean Corpuscular Hgb Conc. 31.8 g/dL (32.0-36.0); Mean Corpuscular Volume 85.1 fL (80.0-100.0); Monocytes # (auto) 0.4 10 ^3/uL (0-1.3); Neutrophils # (auto) 1.7 10 ^3/uL (1.6-8.6); Neutrophils % (auto) 33.2 % (37.0-80.0); Red Blood Cells 3.27 10^6/uL (4.0-5.20); Red Cell Distribution Width 15.9 % (11.8-14.3); White Blood Cell 5.2 10^3/uL (4.4-10.8)
[2023-09-04 19:07] LABS: Alanine Aminotransferase 31 U/L (7-40); Albumin 3.7 g/dL (3.2-4.8); Alkaline Phosphatase 55 U/L (46-116); Anion Gap 6 (5-15); Aspartate Aminotransferase 26 U/L (13-40); BUN/Creatinine Ratio 13.9 (10.0-20.0); Bilirubin, Total 0.3 mg/dL (0.2-1.0); Blood Urea Nitrogen 11 mg/dL (9-23); Calcium 9.1 mg/dL (8.7-10.4); Carbon Dioxide 25 mmol/L (20-30); Chloride 108 mmol/L (98-107); Glucose 127 mg/dL (74-106); Lipase 34 U/L (12-53); Potassium 3.4 mmol/L (3.5-5.1); Sodium 139 mmol/L (136-145); Total Protein 6.4 g/dL (5.7-8.2)
[2023-09-04 19:13] LABS: Lactic Acid w/Reflex 2.5 mmol/L (0.4-2.0)
[2023-09-04] MEDS: NOREPINEPHRINE 8 MG/250ML KIT 250 ML IV SCH (20:00)
[2023-09-04] MEDS ORDERED: ACETAMINOPHEN 325 MG TAB PO PRN (21:30)
[2023-09-04] MEDS ORDERED: DOCUSATE SOD 100 MG CAP PO PRN (21:30)
[2023-09-04] MEDS: CARBIDOPA W LEVODOPA 25/100mg TABLET PO SCH (22:00)
[2023-09-04] MEDS: ATORVASTATIN 20 MG TAB PO SCH (22:00)
[2023-09-04] MEDS: SODIUM CHLORIDE 0.9% 1,000 ML IV SCH (22:13)
[2023-09-04] MEDS: POTASSIUM CHL 20MEQ/100ML 100 ML IV ONE (22:14)
[2023-09-05] MEDS ORDERED: MORPHINE SULFATE INJ 2 MG/ml SYRG IV PRN
[2023-09-05] MEDS ORDERED: NITROGLYCERIN 0.4 MG SL TAB SL PRN
[2023-09-05 07:30] VITALS: RESP 17; O2SAT 96
[2023-09-05 08:57] LABS: Basophils # (auto) 0.1 10 ^3/uL (0-0.2); Basophils % (auto) 1.2 % (0.0-2.0); Eosinophils # (auto) 0.2 10 ^3/uL (0-0.8); Hematocrit 32.5 % (36.0-46.0); Hemoglobin 10.2 g/dL (12.2-16.2); Lymphocytes # (auto) 1.8 10 ^3/uL (0.4-5.4); Lymphocytes % (auto) 33.1 % (10.0-50.0); Mean Corpuscular Hemoglobin 27.4 pg (28.0-32.0); Mean Corpuscular Hgb Conc. 31.4 g/dL (32.0-36.0); Mean Corpuscular Volume 87.2 fL (80.0-100.0); Monocytes # (auto) 0.3 10 ^3/uL (0-1.3); Monocytes % (auto) 6.3 % (0.0-12.0); Neutrophils % (auto) 55.4 % (37.0-80.0); Nucleated Red Blood Cells % 0.1 %; Red Blood Cells 3.73 10^6/uL (4.0-5.20); Red Cell Distribution Width 15.8 % (11.8-14.3); White Blood Cell 5.4 10^3/uL (4.4-10.8)
[2023-09-05 09:38] LABS: Alanine Aminotransferase 28 U/L (7-40); Albumin 3.8 g/dL (3.2-4.8); Alkaline Phosphatase 63 U/L (46-116); Anion Gap 5 (5-15); Aspartate Aminotransferase 19 U/L (13-40); Bilirubin, Total 0.4 mg/dL (0.2-1.0); Calcium 9.8 mg/dL (8.5-10.1); Carbon Dioxide 23 mmol/L (20-30); Chloride 109 mmol/L (98-107); Glucose 89 mg/dL (74-106); Potassium 4.2 mmol/L (3.5-5.1); Sodium 137 mmol/L (136-145); Total Protein 6.6 g/dL (5.7-8.2)
[2023-09-05 09:39] LABS: BUN/Creatinine Ratio 8.6 (10.0-20.0); Blood Urea Nitrogen < 5 mg/dL (9-23)
[2023-09-05] MEDS: ASPirin 81 mg TAB PO SCH (09:49)
[2023-09-05] MEDS: FAMOTIDINE (10MG/ML) 2ML VL IV SCH (09:49)
[2023-09-05] MEDS: LORazepam 2MG/ML-1ML VIAL IV PRN (09:55)
[2023-09-05 12:15] LABS: Urine Bacteria FEW /hpf (None Seen); Urine Blood TRACE /uL (Negative); Urine Clarity Turbid (Clear); Urine Hyaline Cast FEW /lpf (0 - 2); Urine Protein, UAD TRACE (Negative); Urine Specific Gravity 1.005 (1.001-1.035); Urine Urobilinogen Normal (Negative); Urine WBC 276 /hpf (0 - 5); Urine WBC Clumps PRESENT /hpf (None Seen); Urine pH 7.5 (5.0-9.0)
[2023-09-05 12:20] LABS: Urine Color Straw (Yellow)
[2023-09-05 12:29] LABS: Amphetamine Screen, Urine Neg (NEGATIVE); Barbiturate Scree,Urine Neg (NEGATIVE); Benzodiazephine Screen, Urine Neg (NEGATIVE); Cannabinoid Screen, Urine Neg (NEGATIVE); Cocaine Screen, Urine Neg (NEGATIVE); Opiate Scree,Urine Neg (NEGATIVE); Phencyclidine Screen, Urine Neg (NEGATIVE)
[2023-09-05] MEDS: MIDODRINE HCL 10 MG TAB PO SCH (16:22)
[2023-09-05] MEDS: cefTRIAXone 1GM/50ML D5W 50 ML IV SCH (16:22)
[2023-09-05 16:28] LABS: Folate (Folic Acid) 13.12 ng/mL (>5.38)
[2023-09-05 17:05] LABS: Erythrocyte Sedimentation Rate 14 mm/hr (0-20)
[2023-09-05 18:45] LABS: Triglycerides 68 mg/dL (< 150)
[2023-09-05 18:46] LABS: LDL Cholesterol 67 mg/dL (< 100)
[2023-09-05 18:47] LABS: Cholesterol 144 mg/dL (< 200); HDL Cholesterol 61 mg/dL (40-59)
[2023-09-05 20:00] VITALS: PULSE 84; RESP 18; O2SAT 96
[2023-09-06] MEDS: ONDANSETRON HCL 4 MG/2 ML VIAL IV PRN (05:45)
[2023-09-06 06:25] LABS: Anion Gap 6 (5-15); Carbon Dioxide 27 mmol/L (20-30); Chloride 107 mmol/L (98-107); Potassium 4.1 mmol/L (3.5-5.1); Sodium 140 mmol/L (136-145)
[2023-09-06 06:27] LABS: Calcium 10.3 mg/dL (8.7-10.4)
[2023-09-06 06:31] LABS: Glucose 95 mg/dL (74-106)
[2023-09-06 06:32] LABS: Blood Urea Nitrogen 7 mg/dL (9-23)
[2023-09-06 06:38] LABS: Basophils # (auto) 0.1 10 ^3/uL (0-0.2); Basophils % (auto) 1.2 % (0.0-2.0); Eosinophils # (auto) 0.2 10 ^3/uL (0-0.8); Eosinophils % (auto) 3.1 % (0.0-7.0); Hematocrit 31.1 % (36.0-46.0); Hemoglobin 10.3 g/dL (12.2-16.2); Lymphocytes # (auto) 2.6 10 ^3/uL (0.4-5.4); Lymphocytes % (auto) 39.7 % (10.0-50.0); Mean Corpuscular Hemoglobin 27.7 pg (28.0-32.0); Mean Corpuscular Hgb Conc. 33.2 g/dL (32.0-36.0); Mean Corpuscular Volume 83.6 fL (80.0-100.0); Monocytes # (auto) 0.5 10 ^3/uL (0-1.3); Neutrophils # (auto) 3.2 10 ^3/uL (1.6-8.6); Red Blood Cells 3.72 10^6/uL (4.0-5.20); Red Cell Distribution Width 15.8 % (11.8-14.3); White Blood Cell 6.6 10^3/uL (4.4-10.8)
[2023-09-06 07:22] LABS: BUN/Creatinine Ratio 11.1 (10.0-20.0)
[2023-09-06 08:41] VITALS: PULSE 62; RESP 16; O2SAT 100
[2023-09-06] MEDS ORDERED: NITR-52 PO ×2 (11:48)
[2023-09-06] MEDS ORDERED: MID10T PO ×2 (11:48)
[2023-09-06] MEDS ORDERED: SODIUM CHLORIDE 0.9% 1,000 ML IV SCH (13:45)
[2023-09-06] MEDS: SODIUM CHLORIDE 0.9% 1,000 ML IV ONE ×2 (13:53→14:48)
[2023-09-06] MEDS: SODIUM CHLORIDE 0.9% 1,000 ML IV SCH (14:49)
[2023-09-06] MEDS ORDERED: SODIUM CHLORIDE 0.9% 1,000 ML IV ONE (16:30)
[2023-09-07] VITALS (9 sets, daily range): BP systolic 97–132; BP diastolic 58–81; PULSE 55–95; RESP 16–20; TEMP 37; O2SAT 96–100
[2023-09-07 06:36] LABS: Basophils # (auto) 0.1 10 ^3/uL (0-0.2); Basophils % (auto) 1.4 % (0.0-2.0); Eosinophils # (auto) 0.2 10 ^3/uL (0-0.8); Eosinophils % (auto) 3.2 % (0.0-7.0); Hemoglobin 8.6 g/dL (12.2-16.2); Lymphocytes # (auto) 1.7 10 ^3/uL (0.4-5.4); Lymphocytes % (auto) 31.9 % (10.0-50.0); Mean Corpuscular Hemoglobin 27.6 pg (28.0-32.0); Mean Corpuscular Hgb Conc. 33.2 g/dL (32.0-36.0); Mean Corpuscular Volume 83.1 fL (80.0-100.0); Monocytes # (auto) 0.4 10 ^3/uL (0-1.3); Monocytes % (auto) 7.2 % (0.0-12.0); Neutrophils % (auto) 56.3 % (37.0-80.0); Red Blood Cells 3.12 10^6/uL (4.0-5.20); Red Cell Distribution Width 15.5 % (11.8-14.3); White Blood Cell 5.4 10^3/uL (4.4-10.8)
[2023-09-07 06:42] LABS: Albumin 3.6 g/dL (3.2-4.8); Anion Gap 5 (5-15); Aspartate Aminotransferase 11 U/L (13-40); BUN/Creatinine Ratio 13.5 (10.0-20.0); Blood Urea Nitrogen 7 mg/dL (9-23); Calcium 9.5 mg/dL (8.7-10.4); Carbon Dioxide 26 mmol/L (20-30); Chloride 109 mmol/L (98-107); Glucose 89 mg/dL (74-106); Potassium 3.3 mmol/L (3.5-5.1); Sodium 140 mmol/L (136-145)
[2023-09-07 06:43] LABS: Free T4 (Free Thyroxine) 1.13 ng/dL (0.89-1.76)
[2023-09-07 06:44] LABS: Alkaline Phosphatase 53 U/L (46-116); Free T3 2.4 pg/mL (2.3-4.2)
[2023-09-07 06:48] LABS: Bilirubin, Total 0.3 mg/dL (0.2-1.0)
[2023-09-07 06:51] LABS: Magnesium 1.7 mg/dL (1.6-2.6)
[2023-09-07 06:52] LABS: Alanine Aminotransferase < 9 U/L (7-40)
[2023-09-07] MEDS: POTASSIUM CHL 20 Meq TABLET PO ONE (09:43)
[2023-09-07] MEDS: HYDROcodone-ACET 5/325MG TAB PO PRN (16:36)
== END 2023-09-07 20:27 | disposition home or self-care (01) | DRG 720 ==
LOC: EDBD 18:24 → ER 18:24 → TELE 23:51 → TELE-CENTR 09-06 23:44
PROVIDERS: ADMIT Internal Medicine Pulmonary Disease; ATTEND Internal Medicine Pulmonary Disease
DX: A41.9 Sepsis, unspecified organism (principal); G93.41 Metabolic encephalopathy; R53.2 Functional quadriplegia; G30.9 Alzheimer's disease, unspecified; F02.80 Dementia in other diseases classified elsewhere, unspecified severity, without behavioral disturbance, psychotic disturbance, mood disturbance, and anxiety; E87.6 Hypokalemia; E78.5 Hyperlipidemia, unspecified; S06.890A Other specified intracranial injury without loss of consciousness, initial encounter; F79 Unspecified intellectual disabilities; N39.0 Urinary tract infection, site not specified; Z74.01 Bed confinement status; Z79.899 Other long term (current) drug therapy; Z82.0 Family history of epilepsy and other diseases of the nervous system; Z99.3 Dependence on wheelchair; W07.XXXA Fall from chair, initial encounter; Y93.89 Activity, other specified; Y99.8 Other external cause status; Y92.008 Other place in unspecified non-institutional (private) residence as the place of occurrence of the external cause
CPT/HCPCS: 36415; 70450; 71045; 71250; 74176; 80048; 80053; 80061; 80307; 81001; 82140; 82533; 82607; 82746; 83605; 83690; 83735; 84439; 84443; 84481; 84484; 85025; 85652; 86141; 86850; 86900; 86901; 87040; 87086; 93005; 96360; 96361; G0378; J2405; J3480; J3490

== ENCOUNTER 2023-10-21 01:21 | Inpatient (IN) | payer MEDICAID, OTHER ==
[~2023-10-21] VITALS: Ht 162.6 cm; Wt 41.0 kg
[~2023-10-21 01:21] MED LIST changes: -ARIP1TAB59 PO; -ASPI-543 PO; -ASPI81CH59 PO; -BACDST PO; -CARB25TA77; -CIPR-173 PO; -ERGO1CAP23 PO; -HYDR50TA69 PO; -LACT10SO3 PO; -MIRT-94 PO; +NITR-52 PO; -TRAM50TA2 PO
[2023-10-21 01:56] VITALS: PULSE 84; RESP 14; O2SAT 98
[2023-10-21 02:05] LABS: Basophils # (auto) 0 10 ^3/uL (0-0.2); Basophils % (auto) 0.7 % (0.0-2.0); Eosinophils # (auto) 0.1 10 ^3/uL (0-0.8); Eosinophils % (auto) 1.5 % (0.0-7.0); Hematocrit 34.1 % (36.0-46.0); Hemoglobin 11.3 g/dL (12.2-16.2); Lymphocytes # (auto) 1.5 10 ^3/uL (0.4-5.4); Lymphocytes % (auto) 31.7 % (10.0-50.0); Mean Corpuscular Hemoglobin 27.5 pg (28.0-32.0); Mean Corpuscular Hgb Conc. 33.2 g/dL (32.0-36.0); Mean Corpuscular Volume 82.8 fL (80.0-100.0); Monocytes # (auto) 0.4 10 ^3/uL (0-1.3); Monocytes % (auto) 7.5 % (0.0-12.0); Neutrophils # (auto) 2.8 10 ^3/uL (1.6-8.6); Neutrophils % (auto) 58.6 % (37.0-80.0); Nucleated Red Blood Cells % 0.2 %; Platelet Count (auto) 296 10^3/uL (140-450); Red Blood Cells 4.12 10^6/uL (4.0-5.20); Red Cell Distribution Width 17.1 % (11.8-14.3); White Blood Cell 4.8 10^3/uL (4.4-10.8)
[2023-10-21 02:12] LABS: Chloride 104 mmol/L (98-107); Potassium 3.7 mmol/L (3.5-5.1); Sodium 137 mmol/L (136-145)
[2023-10-21 02:13] LABS: Anion Gap 5 (5-15); Calcium 9.8 mg/dL (8.7-10.4); Carbon Dioxide 28 mmol/L (20-30)
[2023-10-21 02:18] LABS: BUN/Creatinine Ratio 14.5 (10.0-20.0); Blood Urea Nitrogen 8 mg/dL (9-23); Glucose 108 mg/dL (74-106)
[2023-10-21] MEDS: SODIUM CHLORIDE 0.9% 1,000 ML IV ONE (03:48)
[2023-10-21] MEDS: ONDANSETRON HCL 4 MG/2 ML VIAL IV ONE (03:54)
[2023-10-21] MEDS: MORPHINE SULFATE INJ 2 MG/ml SYRG IV ONE (03:54)
[2023-10-21] MEDS ORDERED: DOCUSATE SOD 100 MG CAP PO PRN (11:45)
[2023-10-21] MEDS ORDERED: ONDANSETRON HCL 4 MG/2 ML VIAL IV PRN (11:45)
[2023-10-21] MEDS ORDERED: NITROGLYCERIN 0.4 MG SL TAB SL PRN (11:45)
[2023-10-21] MEDS: ENOXAPARIN SOD 40 MG/0.4 ML SYRINGE SC SCH (12:50)
[2023-10-21] MEDS: SODIUM CHLORIDE 0.9% 1,000 ML IV SCH (12:51)
[2023-10-21] MEDS ORDERED: ACETAMINOPHEN IV 1000 MG/100ML (10MG/ML) IV PRN (13:30)
[2023-10-21] MEDS: ACETAMINOPHEN IV 1000 MG/100ML (10MG/ML) IV PRN (13:54)
[2023-10-21] MEDS: MORPHINE SULFATE INJ 2 MG/ml SYRG IV PRN (14:36)
[2023-10-21 16:43] VITALS: PULSE 73; RESP 18; O2SAT 95
[2023-10-21 17:56] VITALS: BP 107/79; PULSE 73; RESP 18; TEMP 97.4; O2SAT 95
[2023-10-21 21:00] VITALS: BP 110/82; PULSE 80; RESP 18; TEMP 97.5; O2SAT 99
[2023-10-22] VITALS (7 sets, daily range): BP systolic 100–126; BP diastolic 65–80; PULSE 59–95; RESP 18–19; TEMP 97.4–98.4; O2SAT 92–100
[2023-10-22] MEDS: Ensure HIGH Protein Chocolate 8oz Bottle PO SCH (12:00)
[2023-10-22 12:15] LABS: Basophils # (auto) 0 10 ^3/uL (0-0.2); Basophils % (auto) 0.6 % (0.0-2.0); Eosinophils # (auto) 0 10 ^3/uL (0-0.8); Eosinophils % (auto) 0.7 % (0.0-7.0); Hematocrit 39.3 % (36.0-46.0); Hemoglobin 12.7 g/dL (12.2-16.2); Lymphocytes # (auto) 1.6 10 ^3/uL (0.4-5.4); Lymphocytes % (auto) 23.2 % (10.0-50.0); Mean Corpuscular Hgb Conc. 32.4 g/dL (32.0-36.0); Mean Corpuscular Volume 83.4 fL (80.0-100.0); Monocytes # (auto) 0.4 10 ^3/uL (0-1.3); Monocytes % (auto) 5.6 % (0.0-12.0); Neutrophils # (auto) 4.9 10 ^3/uL (1.6-8.6); Neutrophils % (auto) 69.9 % (37.0-80.0); Platelet Count (auto) 356 10^3/uL (140-450); Red Blood Cells 4.71 10^6/uL (4.0-5.20)
[2023-10-22 12:29] LABS: Alanine Aminotransferase 32 U/L (7-40); Albumin 4.7 g/dL (3.2-4.8); Alkaline Phosphatase 88 U/L (46-116); Anion Gap 7 (5-15); Aspartate Aminotransferase 30 U/L (13-40); Blood Urea Nitrogen 7 mg/dL (9-23); Calcium 10.2 mg/dL (8.7-10.4); Carbon Dioxide 28 mmol/L (20-30); Chloride 105 mmol/L (98-107); Glucose 84 mg/dL (74-106); Potassium 3.4 mmol/L (3.5-5.1); Sodium 140 mmol/L (136-145)
[2023-10-22 12:30] LABS: Bilirubin, Total 0.5 mg/dL (0.2-1.0); Total Protein 7.7 g/dL (5.7-8.2)
[2023-10-22] MEDS ORDERED: SULFACETAMIDE SOD 10% OPTH(EYE) SOL 15ML EACHEYE SCH (22:00)
[2023-10-22] MEDS: SULFACETAMIDE SOD 10% OPTH(EYE) SOL 15ML LEFTEYE SCH (23:55)
[2023-10-23] VITALS (8 sets, daily range): BP systolic 91–122; BP diastolic 60–79; PULSE 53–98; RESP 16–19; TEMP 97.1–98.5; O2SAT 93–98
[2023-10-23] MEDS: LORazepam 2MG/ML-1ML VIAL IV PRN (13:57)
[2023-10-24 05:00] VITALS: BP 96/59; PULSE 71; RESP 16; TEMP 98; O2SAT 95
[2023-10-24 08:00] VITALS: PULSE 84; RESP 20
[2023-10-24 08:46] VITALS: BP 93/61; PULSE 63; RESP 20; TEMP 97.8; O2SAT 100
[2023-10-24 12:31] VITALS: BP 100/48; PULSE 84; RESP 20; TEMP 98.7; O2SAT 97
[2023-10-24] MEDS: SODIUM CHLORIDE 0.9% 1,000 ML IV SCH (14:45)
[2023-10-24] MEDS: cefTRIAXone 1GM/50ML D5W 50 ML IV ONE (16:39)
[2023-10-24 16:44] VITALS: BP 96/57; PULSE 63; RESP 20; TEMP 97.9; O2SAT 98
[2023-10-24 21:00] VITALS: BP 111/71; PULSE 80; RESP 17; TEMP 97.4; O2SAT 98
[2023-10-25 01:00] VITALS: BP 108/63; PULSE 88; RESP 16; TEMP 97.6; O2SAT 96
[2023-10-25 05:00] VITALS: BP 113/73; PULSE 96; RESP 18; TEMP 97.7; O2SAT 99
[2023-10-25 06:48] LABS: Chloride 107 mmol/L (98-107); Potassium 4.1 mmol/L (3.5-5.1); Sodium 142 mmol/L (136-145)
[2023-10-25 06:49] LABS: Anion Gap 6 (5-15); Carbon Dioxide 29 mmol/L (20-30)
[2023-10-25 06:50] LABS: Calcium 10.2 mg/dL (8.7-10.4)
[2023-10-25 06:51] LABS: Basophils # (auto) 0.1 10 ^3/uL (0-0.2); Basophils % (auto) 1.3 % (0.0-2.0); Eosinophils # (auto) 0.1 10 ^3/uL (0-0.8); Eosinophils % (auto) 1.7 % (0.0-7.0); Hematocrit 33.1 % (36.0-46.0); Hemoglobin 10.9 g/dL (12.2-16.2); Lymphocytes # (auto) 1.8 10 ^3/uL (0.4-5.4); Lymphocytes % (auto) 42.8 % (10.0-50.0); Mean Corpuscular Hgb Conc. 32.8 g/dL (32.0-36.0); Mean Corpuscular Volume 82.3 fL (80.0-100.0); Monocytes # (auto) 0.4 10 ^3/uL (0-1.3); Monocytes % (auto) 9.7 % (0.0-12.0); Neutrophils # (auto) 1.8 10 ^3/uL (1.6-8.6); Neutrophils % (auto) 44.5 % (37.0-80.0); Nucleated Red Blood Cells % 0.1 %; Platelet Count (auto) 293 10^3/uL (140-450); Red Blood Cells 4.02 10^6/uL (4.0-5.20); Red Cell Distribution Width 17.1 % (11.8-14.3); White Blood Cell 4.1 10^3/uL (4.4-10.8)
[2023-10-25 06:54] LABS: Glucose 85 mg/dL (74-106)
[2023-10-25 06:58] LABS: BUN/Creatinine Ratio 9.8 (10.0-20.0); Blood Urea Nitrogen < 5 mg/dL (9-23)
[2023-10-25 08:00] VITALS: PULSE 59; RESP 19; O2SAT 100
[2023-10-25] MEDS: cefTRIAXone 1GM/50ML D5W 50 ML IV SCH (08:43)
[2023-10-25 10:21] VITALS: BP 118/79; PULSE 59; RESP 19; TEMP 97.5; O2SAT 100
[2023-10-25 12:01] VITALS: BP 118/79; PULSE 59; RESP 19; TEMP 97.5; O2SAT 100
[2023-10-25 13:02] VITALS: BP 105/55; PULSE 78; RESP 18; TEMP 97.6; O2SAT 98
== END 2023-10-25 14:05 | disposition hospice, home (50) | DRG 422 ==
LOC: EDBD 01:21 → ER 01:21 → OVERFLOW 11:47 → EDUNIT# 11:47 → WEST WING 16:16
PROVIDERS: ADMIT Nurse Practitioner Family; ATTEND Internal Medicine
DX: E86.0 Dehydration (principal); G93.41 Metabolic encephalopathy; E43 Unspecified severe protein-calorie malnutrition; G30.9 Alzheimer's disease, unspecified; F02.C0 Dementia in other diseases classified elsewhere, severe, without behavioral disturbance, psychotic disturbance, mood disturbance, and anxiety; R62.7 Adult failure to thrive; N39.0 Urinary tract infection, site not specified; D64.9 Anemia, unspecified; Z68.1 Body mass index [BMI] 19.9 or less, adult; Z51.5 Encounter for palliative care
CPT/HCPCS: 36415; 80048; 80053; 85025; G0378; J0131; J2405

== ENCOUNTER 2024-03-12 21:13 | Inpatient (IN) | payer MEDICAID ==
[~2024-03-12] VITALS: Ht 157.5 cm; Wt 38.7 kg
[~2024-03-12 21:13] MED LIST changes: +ACET-6 XX; +ALPR0.254 PO; +ASPI1TAB20 PO; +CARB-118 PO; +CEFD300C2 PO; +HALO2CON8 PO; +TRAZ-228 PO
[2024-03-12 21:38] LABS: Basophils # (auto) 0 10 ^3/uL (0-0.2); Basophils % (auto) 0.4 % (0.0-2.0); Eosinophils # (auto) 0.3 10 ^3/uL (0-0.8); Lymphocytes # (auto) 2.4 10 ^3/uL (0.4-5.4); Mean Corpuscular Hemoglobin 30.2 pg (28.0-32.0); Monocytes # (auto) 0.7 10 ^3/uL (0-1.3); Nucleated Red Blood Cells % 0.1 %
[2024-03-12 21:40] LABS: Eosinophils % (auto) 3.3 % (0.0-7.0); Hematocrit 20.1 % (36.0-46.0); Lymphocytes % (auto) 27.6 % (10.0-50.0); Mean Corpuscular Hgb Conc. 33.3 g/dL (32.0-36.0); Mean Corpuscular Volume 90.7 fL (80.0-100.0); Monocytes % (auto) 7.8 % (0.0-12.0); Neutrophils # (auto) 5.3 10 ^3/uL (1.6-8.6); Neutrophils % (auto) 60.9 % (37.0-80.0); Platelet Count (auto) 382 10^3/uL (140-450); Red Blood Cells 2.21 10^6/uL (4.0-5.20); Red Cell Distribution Width 16.1 % (11.8-14.3); White Blood Cell 8.7 10^3/uL (4.4-10.8)
[2024-03-12 21:42] LABS: Hemoglobin 6.7 g/dL (12.2-16.2)
[2024-03-12 21:56] LABS: Alkaline Phosphatase 68 U/L (46-116); Anion Gap 6 (5-15); Aspartate Aminotransferase 15 U/L (13-40); Blood Urea Nitrogen 16 mg/dL (9-23); Calcium 8.7 mg/dL (8.7-10.4); Carbon Dioxide 26 mmol/L (20-31); Sodium 140 mmol/L (136-145)
[2024-03-12 21:58] LABS: Alanine Aminotransferase < 9 U/L (7-40); Albumin 3.1 g/dL (3.2-4.8); Bilirubin, Total < 0.2 mg/dL (0.2-1.0); Chloride 108 mmol/L (98-107); Glucose 113 mg/dL (74-106); Potassium 3.4 mmol/L (3.5-5.1); Total Protein 5.7 g/dL (5.7-8.2)
[2024-03-12 22:08] LABS: Platelet Estimate Adequate
[2024-03-12] MEDS: VANCOMYCIN 1GM/250ML KIT 250 ML IV ONE (22:35)
--- NOTE | 2024-03-12 23:10 | DVH ---
EXAM: XY CHEST PORTABLE CLINICAL HISTORY: weakness TECHNIQUE: Single AP view of the chest WID: COMPARISON: XY CHEST PORTABLE on DOS: 11/09/23 FINDINGS: Lines and tubes: None Chest: The heart size and pulmonary vasculature is within normal limits. No pleural effusion, pneumothorax, or consolidation. The osseous structures are grossly intact. IMPRESSION: No acute cardiopulmonary abnormality.
[2024-03-13] VITALS (11 sets, daily range): BP systolic 96–123; BP diastolic 56–84; PULSE 75–107; RESP 9–20; TEMP 97.5–98.3; O2SAT 94–100
--- NOTE | 2024-03-13 01:19 | ED.PDOC ---
History of Present Illness HPI Comments 43-year-old female chronically ill presents with fever at home and worsening weakness. Patient is nonverbal at baseline but family reports that patient has not been doing well. They reports she has a worsening sacral decubitus ulcer. Chief Complaint: Wound Check Time Seen by MD: 21:15 Primary Care Provider: UNKNOWN Allergies: Coded Allergies: Acetaminophen (Verified Allergy, Unknown, 11/09/23) Hydrocodone (Verified Allergy, Unknown, 11/09/23) Home Meds Active Scripts Midodrine HCl (Midodrine HCl) 10 Mg Tab, 10 MG PO TID for 30 Days, #90 TAB Prov:VERA GARLAND RESIDENT 09/06/23 Nitrofurantoin (Nitrofurantoin) 100 Mg Cap, 100 MG PO BID for 5 Days, CAP Prov:VERA GARLAND RESIDENT 09/06/23 Midodrine HCl (Midodrine HCl) 10 Mg Tab, 10 MG PO TID@0600,1200,1800 for 30 Days, #90 TAB Prov:CARMENCITA SMITH MD 08/30/23 Acetaminophen (Acetaminophen) 500 Mg Tab, 500 MG PO Q4HP PRN, #30 TAB Prov:JAIR PITTMAN PAC 05/21/23 Docusate Sodium (Colace) 100 Mg Cap, 1 CAP PO BIDP PRN, #30 CAP Prov:JAIR PITTMAN PAC 05/21/23 Acetaminophen (Tylenol 8 Hour Arthritis) 650 Mg Tab, 650 MG PO QID, #30 TAB Prov:FRANKI GUTIERREZ 05/29/22 Reported Medications Levodopa W/Carbidopa (Sinemet) 25 /100 Tab, 1 TAB PO TID, #90 TAB 5 Refills 10/21/23 Aspirin (Aspir-81) 81 Mg Tab, 1 TAB PO DAILY, #30 TAB 5 Refills 10/21/23 Alprazolam (Alprazolam) 0.25 Mg Tab, 1 TAB PO TID PRN for ANXIETY, #90 TAB 10/21/23 Haloperidol Lactate (Haloperidol) 2 Mg/Ml Con, 2 MG PO Q4HR for MO, CON 10/21/23 Trazodone Hcl (Trazodone Hcl) 100 Mg Tab, 1 TAB PO QHSP PRN for SLEEP 10/21/23 Acetaminophen (Acetaminophen Extra Stren) 500 Mg Tab, 1 TAB XX Q4HPRN PRN for TEMP GREATER THAN 100.4 10/21/23 Cefdinir (Cefdinir) 300 Mg Cap, 1 CAP PO BID, #14 CAP 10/21/23 Nitrofurantoin (Nitrofurantoin) 100 Mg Cap, 1 CAP PO BID for Infection, #20 CAP 10/21/23 Trazodone HCl (Trazodone Hydrocloride) 100 Mg Tab, 100 MG PO HS, TAB 08/26/23 Carbidopa-Levodopa (Carbidopa/Levodopa Er) 25 /100 Tab, 1 100 PO TID, TAB 08/26/23 Aripiprazole (Abilify) 2 Mg Tab, 5 MG PO DAILY, TAB 08/26/23 Simvastatin (Simvastatin) 40 Mg Tab, 40 MG PO HS for 30 Days 08/26/23 Mirtazapine (Mirtazapine Oral Disintegrating Tablet) 30 Mg Tab, 1 TAB PO 04/28/23 Venlafaxine Hcl (Venlafaxine Hcl Er) 225 Mg Tab, 1 TAB PO QAM 04/28/23 Ergocalciferol (Vitamin D) 50,000 Unit Cap, 1 CAP PO QWEEKLY 04/28/23 Aspirin (ASPIRIN/ENTERIC) 81 Mg Tab, 81 MG OR, TAB 04/28/23 Mode of Arrival: EMS Past Medical History PAST MEDICAL HISTORY: Denies Surgical History: Denies all surgeries GRINDER HARDBOARD History: No Pertinent GRINDER HARDBOARD History Family History Family History: Reviewed,noncontributory to illness, No family hx of Cancer, No family hx of DM, No family hx of Heart mary, No family hx of HTN, No family hx ofKidney mary, No family hx of Liver mary, No family hx of Lung mary, No family hx of Stroke Social History Smoker: Non-Smoker Alcohol: Denies ETOH Use Drugs: Denies Drug Use Lives In: Home Physical Exam General Appearance: Other (Chronically ill-appearing) HEENT: Normal ENT Inspection, Pharynx Normal, TMs Normal Neck: Full Range of Motion, Non-Tender, Normal, Normal Inspection Respiratory: Other (Tachypneic) Cardiovascular: No Edema, No JVD, No Murmur, No Gallop, Normal Peripheral Pulses, Regular Rate/Rhythm Breast Exam: Deferred Gastrointestinal: No Organomegaly, Non Tender, No Pulsatile Mass, Normal Bowel Sounds, Soft Genitalia: Deferred Pelvic: Deferred Rectal: Deferred Extremities: Other (Contractures) Neurologic: Other (Nonverbal) Cerebellar Function: NOT DONE Reflexes: NOT DONE Skin: Other (Unstageable sacral decubitus ulcer) Lymphatic: No Adenopathy Was a procedure done? Was a procedure done?: No Differential Dx Considerations may include: Cellulitis, worsening wound, symptomatic anemia X-Ray, Labs, Meds, VS Vital Signs Date Time Temp Pulse Resp B/P (MAP) Pulse Ox O2 Delivery O2 Flow Rate FiO2 03/13/24 00:39 75 9 100 Room Air* 0 21 03/12/24 22:10 98.1 103 13 129/101 (110) 98 98.1 03/12/24 21:22 98.4 105 16 91/52 (65) 96 Lab Test 03/12/24 21:29 Range/Units White Blood Count 8.7 4.4-10.8 10^3/uL Red Blood Count 2.21 L 4.0-5.20 10^6/uL Hemoglobin 6.7 *L 12.2-16.2 g/dL Hematocrit 20.1 L 36.0-46.0 % Mean Corpuscular Volume 90.7 80.0-100.0 fL Mean Corpuscular Hemoglobin 30.2 28.0-32.0 pg Mean Corpuscular Hemoglobin Concent 33.3 32.0-36.0 g/dL Red Cell Distribution Width 16.1 H 11.8-14.3 % Platelet Count 382 140-450 10^3/uL Mean Platelet Volume 6.7 L 6.9-10.8 fL Neutrophils (%) (Auto) 60.9 37.0-80.0 % Lymphocytes (%) (Auto) 27.6 10.0-50.0 % Monocytes (%) (Auto) 7.8 0.0-12.0 % Eosinophils (%) (Auto) 3.3 0.0-7.0 % Basophils (%) (Auto) 0.4 0.0-2.0 % Neutrophils # (Auto) 5.3 1.6-8.6 10 ^3/uL Lymphocytes # (Auto) 2.4 0.4-5.4 10 ^3/uL Monocytes # (Auto) 0.7 0-1.3 10 ^3/uL Eosinophils # (Auto) 0.3 0-0.8 10 ^3/uL Basophils # (Auto) 0 0-0.2 10 ^3/uL Nucleated Red Blood Cells 0.1 % Platelet Estimate Adequate Sodium Level 140 136-145 mmol/L Potassium Level 3.4 L 3.5-5.1 mmol/L Chloride Level 108 H 98-107 mmol/L Carbon Dioxide Level 26 20-31 mmol/L Anion Gap 6 5-15 Blood Urea Nitrogen 16 9-23 mg/dL Creatinine 0.39 L 0.550-1.02 mg/dL Glomerular Filtration Rate Calc 127 >90 mL/min BUN/Creatinine Ratio 41.0 H 10.0-20.0 Serum Glucose 113 H 74-106 mg/dL Lactic Acid Level 1.4 0.4-2.0 mmol/L Calcium Level 8.7 8.7-10.4 mg/dL Total Bilirubin < 0.2 L 0.2-1.0 mg/dL Aspartate Amino Transferase (AST) 15 13-40 U/L Alanine Aminotransferase (ALT) < 9 7-40 U/L Alkaline Phosphatase 68 46-116 U/L Total Protein 5.7 5.7-8.2 g/dL Albumin 3.1 L 3.2-4.8 g/dL Current Medications Medications (Trade) Dose Ordered Sig/Dannielle Route Start Time Stop Time Status Last Admin Vancomycin HCl 250 ml @ 250 mls/hr ONCE ONCE IV 03/12/24 21:45 03/12/24 22:44 DC 03/12/24 22:35 Time of 1ST Reevaluation: 01:18 Reevaluation 1ST: Unchanged Patient Education/Counseling: Diagnosis, Treatment Family Education/Counseling: Diagnosis, Treatment Departure 1 Departure Time of Disposition: 01:18 (Patient with symptomatic anemia. We will transfuse patient cover empirically with antibiotics for her sacral decubitus ulcer) Impression: Primary Impression: Symptomatic anemia Additional Impressions: Metabolic encephalopathy Sacral decubitus ulcer Qualified Codes: L89.150 - Pressure ulcer of sacral region, unstageable Disposition: ADMITTED INPATIENT Admit to: Med Surg Condition: Serious Critical Care Note Critical Care Time?: No Stability Stability form required: YANIRA Oshea MD Mar 13, 2024 01:19
--- NOTE | 2024-03-13 02:22 | DVHHPRES ---
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 The patient is nonverbal at baseline but family reports that patient has been has not been doing well and she has also worsening sacral decubitus ulcer that prompted this visit. The daughter has the power of civil attorney and wants to put the patient in comfort care and wants to discussed with the authorized personnel for this process. 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 Nonsmoker, nonalcoholic and never tried any drugs Review of Systems Review of Systems Review of system could not be assessed as patient is nonverbal Allergies: Coded Allergies: Acetaminophen (Verified Allergy, Unknown, 11/09/23) Hydrocodone (Verified Allergy, Unknown, 11/09/23) Exam Vital Signs Vital Signs Date Time Temp Pulse Resp B/P (MAP) Pulse Ox O2 Delivery O2 Flow Rate FiO2 03/13/24 02:00 97 9 112/81 (91) 99 03/13/24 01:45 98.3 98.3 03/13/24 00:39 Room Air* 0 21 Exam Physical examination: General Appearance: Alert, Nonverbal. HEENT: Atraumatic, PERRLA, EOMI, Mucous membrane moist/pink Respiratory: Clear to auscultation, Normal air movement Cardiovascular: Regular rate, Normal S1, Normal S2, No murmurs, no chest wall tenderness Abdominal: Normal bowel sounds, Soft, No tenderness, No hepatospenomegaly, No masses Extremities: No clubbing, No cyanosis, No edema, Normal pulses, No tenderness/swelling Skin: Sacral decubitus ulcer stage 4 . Neuro: Bed bound, aphasia, Strength at 5/5 X4 ext, Normal tone, Sensation intact. Psych/Mental Status: Could not be assessed as patient is nonverbal. Labs/Xrays Labs Test 03/12/24 21:29 Range/Units White Blood Count 8.7 4.4-10.8 10^3/uL Red Blood Count 2.21 L 4.0-5.20 10^6/uL Hemoglobin 6.7 *L 12.2-16.2 g/dL Hematocrit 20.1 L 36.0-46.0 % Mean Corpuscular Volume 90.7 80.0-100.0 fL Mean Corpuscular Hemoglobin 30.2 28.0-32.0 pg Mean Corpuscular Hemoglobin Concent 33.3 32.0-36.0 g/dL Red Cell Distribution Width 16.1 H 11.8-14.3 % Platelet Count 382 140-450 10^3/uL Mean Platelet Volume 6.7 L 6.9-10.8 fL Neutrophils (%) (Auto) 60.9 37.0-80.0 % Lymphocytes (%) (Auto) 27.6 10.0-50.0 % Monocytes (%) (Auto) 7.8 0.0-12.0 % Eosinophils (%) (Auto) 3.3 0.0-7.0 % Basophils (%) (Auto) 0.4 0.0-2.0 % Neutrophils # (Auto) 5.3 1.6-8.6 10 ^3/uL Lymphocytes # (Auto) 2.4 0.4-5.4 10 ^3/uL Monocytes # (Auto) 0.7 0-1.3 10 ^3/uL Eosinophils # (Auto) 0.3 0-0.8 10 ^3/uL Basophils # (Auto) 0 0-0.2 10 ^3/uL Nucleated Red Blood Cells 0.1 % Platelet Estimate Adequate Sodium Level 140 136-145 mmol/L Potassium Level 3.4 L 3.5-5.1 mmol/L Chloride Level 108 H 98-107 mmol/L Carbon Dioxide Level 26 20-31 mmol/L Anion Gap 6 5-15 Blood Urea Nitrogen 16 9-23 mg/dL Creatinine 0.39 L 0.550-1.02 mg/dL Glomerular Filtration Rate Calc 127 >90 mL/min BUN/Creatinine Ratio 41.0 H 10.0-20.0 Serum Glucose 113 H 74-106 mg/dL Lactic Acid Level 1.4 0.4-2.0 mmol/L Calcium Level 8.7 8.7-10.4 mg/dL Total Bilirubin < 0.2 L 0.2-1.0 mg/dL Aspartate Amino Transferase (AST) 15 13-40 U/L Alanine Aminotransferase (ALT) < 9 7-40 U/L Alkaline Phosphatase 68 46-116 U/L Total Protein 5.7 5.7-8.2 g/dL Albumin 3.1 L 3.2-4.8 g/dL Assessment/Plan Assessment/Plan Assessment and plan: # Symptomatic anaemia - On admission hemoglobin was 6.7 - 2 unit PRBC - Ordered FOBT - IV Normal saline @75ml/hr - IV Protonix 40 mg daily - Monitor H/H # Bed bound, early onset advanced Alzheimer jelisco gene mutation dementia ,nonverbal , irritable, screaming and altered from baseline - Chest xray revealed normal study. - Ordered UA , urine bacterial culture and blood culture - Ordered CT head without contrast - IV Ativan 1 mg once. # Sacral decubitus ulcer stage IV - IV meropenem 1 g t.i.d. - Wound consult and regular dressing # Hypokalemia - Replenished. # Protein calorie malnutrition, cachectic, deconditioning Goal of care could not be discussed as patient is nonverbal Plan Discussed with Dr. Hayes Plan discussed with: Patient, Other My Orders Orders - SHAWN OLEA RESIDENT Procedure Category Date Status Time Admit ADMIT 03/13/24 Transmitted 02:06 Potassium Chl PHA 03/13/24 In Process 20meq/100ml 02:15 Urine Bacterial BRENDA 03/13/24 Logged Culture 02:09 Stool Occult Blood LAB 03/13/24 Logged 02:09 Meropenem 1gm Ivpb PHA 03/13/24 In Process (Merrem 1gm/ Ns) 02:30 Urine ED NURSING 03/13/24 Transmitted Electrocardigram EKG 03/13/24 Logged 02:17 Date of Service: Mar 13, 2024 Billing Provider: CARMENCITA HAYES MD Common Visit Codes: [id number] INP/OBS CARE (HIGH) SHAWN OLEA RESIDENT Mar 13, 2024 02:22 CARMENCITA HAYES MD Mar 13, 2024 17:24
[2024-03-13] MEDS: MORPHINE SULFATE INJ 2 MG/ml SYRG IV ONE (02:55)
[2024-03-13] MEDS: ONDANSETRON HCL 4 MG/2 ML VIAL IV ONE (02:56)
[2024-03-13] MEDS: MORPHINE SULFATE 4 MG/ML SYR/VIAL IV ONE (02:57)
[2024-03-13] MEDS: MEROPENEM 1GM IVPB 50 ML IV ONE (03:12)
[2024-03-13] MEDS: diphenhdrAMINE HCL 50 MG/1 ML VL IV ONE (03:30)
[2024-03-13] MEDS: POTASSIUM CHL 20MEQ/100ML 100 ML IV ONE (03:47)
[2024-03-13 04:33] LABS: Urine Bacteria None Seen /hpf (None Seen)
[2024-03-13 04:56] LABS: Urine Amorphous Crystal FEW /hpf (None Seen); Urine Blood Negative /uL (Negative); Urine Clarity Clear (Clear); Urine Color Light-Yellow (Yellow); Urine Protein, UAD Negative (Negative); Urine Specific Gravity 1.012 (1.001-1.035); Urine Squamous Epithelial Cell None Seen /hpf (<5); Urine Urobilinogen Normal (Negative); Urine WBC 1 /hpf (0 - 5)
[2024-03-13] MEDS: LORazepam 2MG/ML-1ML VIAL IV ONE (05:09)
[2024-03-13] MEDS: SODIUM CHLORIDE 0.9% 1,000 ML IV SCH (05:30)
[2024-03-13] MEDS ORDERED: VANCOMYCIN PER PHARMACY 0 MG IV SCH (05:30)
--- NOTE | 2024-03-13 08:43 | DVH ---
EXAM: CT HEAD WITHOUT CONTRAST HISTORY: Generalized weakness and altered from baseline COMPARISON: CT HEAD WITHOUT CONTRAST on DOS: 11/09/23, CT HEAD WITHOUT CONTRAST on DOS: 09/05/23 TECHNIQUE: Axial images were obtained and reformatted in coronal and sagittal planes. All CT scans at this medical facility are performed using dose modulation techniques as appropriate t o a performed exam including the following: Automated exposure control was utilized; adjustment of th e MA and/or KV according to patient size; and use of iterative reconstruction technique. CT Dose: CTDI volume is 54.43 mGy. Dose-length product is 963.84 mGy*cm FINDINGS: Supratentorial Region: Very suboptimal exam due to motion degradation. No intracranial hemorrhage i s noted. Confluent white matter hypoattenuating foci are noted bilaterally, which typically reflect c hronic microvascular ischemic changes. Posterior Fossa: No acute abnormality. Brainstem: Unremarkable. Sellar/Suprasellar Region: Unremarkable. Ventricles, Cisterns, Sulci: Prominent reflecting volume loss. Orbits: Unremarkable. Paranasal Sinuses: Unremarkable. Mastoid Air Cells: Unremarkable. Vasculature: Unremarkable. Bones/Soft Tissues: No acute abnormality. Other: None. IMPRESSION: 1. Very suboptimal motion degraded study. Acute ischemia or small foci of hemorrhage can not be rule d out based on this CT scan. No large intracranial hemorrhage or midline shift. 2. Moderate global cortical atrophy and chronic microvascular ischemic changes.
[2024-03-13] MEDS: PANTOPRAZOLE 40 MG/10 ML VIAL INJ IV SCH (10:50)
--- NOTE | 2024-03-13 10:55 | ECG ---
[facility] Test Date: 2024-03-12 Test Time: 21:22:53 Pat Name: TOBIAS YORKDepartment: ED Room: [address] [place] [address] A Gender: F Bee Producer: NIC : [id number] Requested By: SHAWN OLEA Order Number: [id number] Reading MD: Enrrique Roberto Measurements Intervals [place] Rate: 102 P: 28 [place]: 170 QRS: 11 QRSD: 87 T: 57 QT: 331 QTc: 432 Interpretive Statements Sinus tachycardia Low voltage, extremity and precordial leads Baseline wander in lead(s) V2 Electronically Signed On 03-13-2024 13:12:13 PST by Enrrique Roberto Please click the below link to view image of tracing.
--- NOTE | 2024-03-13 10:57 | DVHPN2 ---
Progress Note Date Seen: Mar 13, 2024 Medical Necessity Reason Pt with a Central, PICC or Fol: Yes The following are medically ne: Mcqueen Catheter Reason for mcqueen catheter: Strict I&O Subjective Patient reports: No new complaints Review of Systems: HEENT:Normal, CVS:Normal, RESPIRATORY:Normal, GI:Normal, :Normal, MSK:Normal, NEURO:Normal Objective vital signs Vital Sign Date Time Temp Pulse Resp B/P (MAP) Pulse Ox O2 Delivery O2 Flow Rate FiO2 03/13/24 10:00 89 18 111/85 (94) 99 03/13/24 08:41 97.5 97.5 03/13/24 08:00 Room Air* 0 21 Total Intake and Output 03/12/24 03/12/24 03/13/24 15:00 23:00 07:00 Intake Total 1260 ml Output Total 0 ml Balance 1260 ml medications Current Medications Medications Dose Ordered Sig/Dannielle Route Start Time Stop Time Status Last Admin Dose Admin Pantoprazole Sodium 40 mg DAILY IV 03/13/24 10:00 03/13/24 10:50 40 MG Sodium Chloride 1,000 ml @ 75 mls/hr [id number] IV 03/13/24 05:30 Vancomycin HCl 0 ml @ 0 mls/hr UD IV 03/13/24 05:30 Meropenem 50 ml @ 17 mls/hr Q8HR IV 03/13/24 14:00 Vancomycin HCl 750 mg/Dextrose 100 ml @ 100 mls/hr Q8H IV 03/13/24 12:00 Examination: GENERAL:Normal, HEENT:Normal, NECK:Normal, LUNGS:Normal, CVS:Normal, ABDOMEN:Normal, MSK:Normal, MSK:Abnormal (sacral decub), SKIN:Normal, NEURO:Normal, :Normal laboratory and microbiology Laboratory Tests 03/12/24 21:29 Test 03/12/24 21:29 Range/Units Serum Glucose 113 H 74-106 mg/dL Problem List/Assessment/Plan Problem List/Assessment/Plan #1 sepsis with sacral decub: culture, iv antibiotics #2 Alzheimer's dementia- memo #3 severe malnutrition #4 functional quadriplegia #5 anemia s/p transfusion Plan discussed with: Patient My Orders My Orders Orders - TA KEANE MD Procedure Category Date Status Time Complete Blood Count LAB 03/13/24 Verified 10:52 Basic Metabolic Panel LAB 03/13/24 Verified 10:52 Regular Diet DIET 03/13/24 Verified Lunch Basic Metabolic Panel LAB 03/14/24 Verified 06:00 Complete Blood Count LAB 03/14/24 Verified 06:00 Wound Culture W/ Gs BRENDA 03/13/24 Verified 10:52 Date of Service: Mar 13, 2024 Billing Provider: TA KEANE MD Common Visit Codes: [id number] INP/OBS CARE(HIGH) CC Plasma Assessment Blood Product Administration S: [id number] TA KEANE MD Mar 13, 2024 10:57
[2024-03-13] MEDS ORDERED: MEROPENEM 1GM IVPB 50 ML IV SCH (11:00)
[2024-03-13 11:55] LABS: Basophils # (auto) 0 10 ^3/uL (0-0.2); Basophils % (auto) 0.3 % (0.0-2.0); Eosinophils # (auto) 0.2 10 ^3/uL (0-0.8); Eosinophils % (auto) 2.5 % (0.0-7.0); Hematocrit 30.2 % (36.0-46.0); Hemoglobin 10.3 g/dL (12.2-16.2); Lymphocytes # (auto) 1.3 10 ^3/uL (0.4-5.4); Lymphocytes % (auto) 17.3 % (10.0-50.0); Mean Corpuscular Hemoglobin 30.3 pg (28.0-32.0); Mean Corpuscular Hgb Conc. 34.1 g/dL (32.0-36.0); Mean Corpuscular Volume 88.8 fL (80.0-100.0); Monocytes # (auto) 0.4 10 ^3/uL (0-1.3); Monocytes % (auto) 5.8 % (0.0-12.0); Neutrophils # (auto) 5.4 10 ^3/uL (1.6-8.6); Neutrophils % (auto) 74.1 % (37.0-80.0); Nucleated Red Blood Cells % 0.1 %; Platelet Count (auto) 326 10^3/uL (140-450); Red Cell Distribution Width 15.4 % (11.8-14.3); White Blood Cell 7.4 10^3/uL (4.4-10.8)
[2024-03-13 11:56] LABS: Potassium 4.1 mmol/L (3.5-5.1); Sodium 142 mmol/L (136-145)
[2024-03-13 11:57] LABS: Anion Gap 5 (5-15); Carbon Dioxide 27 mmol/L (20-31)
[2024-03-13 11:58] LABS: Calcium 8.8 mg/dL (8.7-10.4)
[2024-03-13 12:02] LABS: BUN/Creatinine Ratio 29.4 (10.0-20.0); Blood Urea Nitrogen 10 mg/dL (9-23); Glucose 85 mg/dL (74-106)
[2024-03-13 12:07] LABS: Chloride 110 mmol/L (98-107)
[2024-03-13] MEDS: VANCOMYCIN 750MG VIAL 750 MG in D5W 5% 100 ML IV SCH (12:17)
[2024-03-13] MEDS: MEROPENEM 1GM IVPB 50 ML IV SCH (14:26)
[2024-03-13] MEDS: LORazepam 2MG/ML-1ML VIAL IV PRN (15:09)
[2024-03-13] MEDS: MORPHINE SULFATE INJ 2 MG/ml SYRG IV PRN (15:12)
[2024-03-14] VITALS (8 sets, daily range): BP systolic 98–126; BP diastolic 62–90; PULSE 77–111; RESP 16–21; TEMP 97.8–100.2; O2SAT 95–100
[2024-03-14 06:07] LABS: Anion Gap 6 (5-15); Carbon Dioxide 27 mmol/L (20-31); Chloride 106 mmol/L (98-107); Potassium 3.9 mmol/L (3.5-5.1); Sodium 139 mmol/L (136-145)
[2024-03-14 06:09] LABS: Calcium 9.7 mg/dL (8.7-10.4)
[2024-03-14 06:12] LABS: Basophils # (auto) 0.1 10 ^3/uL (0-0.2); Basophils % (auto) 0.8 % (0.0-2.0); Eosinophils # (auto) 0.2 10 ^3/uL (0-0.8); Eosinophils % (auto) 3.3 % (0.0-7.0); Hematocrit 35.1 % (36.0-46.0); Hemoglobin 11.9 g/dL (12.2-16.2); Lymphocytes # (auto) 1.8 10 ^3/uL (0.4-5.4); Lymphocytes % (auto) 24.7 % (10.0-50.0); Mean Corpuscular Hgb Conc. 33.9 g/dL (32.0-36.0); Mean Corpuscular Volume 88.6 fL (80.0-100.0); Monocytes # (auto) 0.5 10 ^3/uL (0-1.3); Monocytes % (auto) 6.3 % (0.0-12.0); Neutrophils # (auto) 4.7 10 ^3/uL (1.6-8.6); Neutrophils % (auto) 64.9 % (37.0-80.0); Nucleated Red Blood Cells % 0.1 %; Platelet Count (auto) 405 10^3/uL (140-450); Red Blood Cells 3.96 10^6/uL (4.0-5.20); Red Cell Distribution Width 15.6 % (11.8-14.3); White Blood Cell 7.2 10^3/uL (4.4-10.8)
[2024-03-14 06:14] LABS: BUN/Creatinine Ratio 18.4 (10.0-20.0); Glucose 103 mg/dL (74-106)
[2024-03-14 07:02] LABS: Blood Urea Nitrogen 7 mg/dL (9-23)
[2024-03-14] MEDS: MORPHINE SULFATE INJ 2 MG/ml SYRG IV PRN (11:46)
--- NOTE | 2024-03-14 12:02 | DVHPN2 ---
Subjective The patient is seen and examined at bedside. The patient is nonverbal. The patient is eating lunch with assistance Reviewed: Care Plan, H&P, Labs, Medications, Previous Orders, Radiology Changes from previous H/P or p: No Changes Objective Vitals Vital Signs Date Time Temp Pulse Resp B/P (MAP) Pulse Ox O2 Delivery O2 Flow Rate FiO2 03/14/24 11:46 111 20 123/90 03/14/24 09:30 100.2 97 100.2 03/13/24 20:00 Room Air* 0 21 Intake/Output Intake and Output 03/14/24 07:00 Intake Total 1664 ml Output Total 1000 ml Balance 664 ml Intake Oral 0 ml IV Total 1064 ml Blood Product 600 ml Output Urine Total 1000 ml # Bowel Movements 2 General Appearance: Alert, No acute distress HEENT: Atraumatic, PERRLA, EOMI, Mucous membr. moist/pink Neck: Supple Lungs: Clear to auscultation, Normal air movement Cardiovascular: Regular rate, Normal S1, Normal S2, No murmurs, Gallops, Rubs Abdomen: Normal bowel sounds, Soft, No tenderness Medications Current Medications Medications Dose Ordered Sig/Dannielle Route Start Time Stop Time Status Last Admin Dose Admin Pantoprazole Sodium 40 mg DAILY IV 03/13/24 10:00 03/14/24 11:48 40 MG Sodium Chloride 1,000 ml @ 75 mls/hr [id number] IV 03/13/24 05:30 03/13/24 17:21 75 MLS/HR Vancomycin HCl 0 ml @ 0 mls/hr UD IV 03/13/24 05:30 Meropenem 50 ml @ 17 mls/hr Q8HR IV 03/13/24 14:00 03/14/24 05:38 17 MLS/HR Vancomycin HCl 750 mg/Dextrose 100 ml @ 100 mls/hr Q8H IV 03/13/24 12:00 03/14/24 03:48 100 MLS/HR Lorazepam 0.5 mg Q6HP PRN IV 03/13/24 14:45 03/14/24 05:38 0.5 MG Morphine Sulfate 1 mg Q3HPRN PRN IV 03/14/24 11:45 03/14/24 11:46 1 MG Laboratory Results Laboratory Tests 03/14/24 05:28 Chemistry Test 03/14/24 05:28 Calcium Level 9.7 mg/dL (8.7-10.4) Urinalysis Test 03/13/24 04:17 Urine Color Light-yellow (Yellow) Urine Clarity Clear (Clear) Urine pH 6.0 (5.0-9.0) Urine Specific [place] 1.012 (1.001-1.035) Urine Protein Negative (Negative) Urine Ketones Negative (Negative) Urine Blood Negative /uL (Negative) Urine Nitrite Negative (Negative) Urine Bilirubin Negative (Negative) Urine Urobilinogen Normal mg/dL (Negative) Urine Leukocyte Esterase Negative /uL (Negative) Urine RBC 3 /hpf (0 - 4) Urine WBC 1 /hpf (0 - 5) Urine Squamous Epithelial Cells None seen /hpf (<5) Urine Amorphous Crystals Few /hpf (None Seen) Urine Bacteria None seen /hpf (None Seen) Urine Glucose Normal mg/dL (Normal) Microbiology Microbiology Date/Time Source Procedure Growth Status 03/12/24 21:29 Blood Blood Culture - Preliminary NO GROWTH AFTER 24 HOURS OF INCUBATION. Resulted Labs and/or images reviewed: Labs reviewed by me Assessment/Plan Assessment/Plan #1 sepsis with sacral decub #2 Alzheimer's dementia #3 severe malnutrition #4 functional quadriplegia #5 anemia s/p transfusion Plan: Continuing current management. Continuing with IV antibiotic vancomycin and Merrem. Continuing with ensure for nutrition support. Continuing with Sinemet. Continuing with wound care. We will follow up with culture. We will give morphine 1 mg IV every 3 hours p.r.n. for pain This medical document was created using an electronic medical record system with [employer] direct computerized dictation system. Although this document has been carefully reviewed, there may still be some phonetic and typographical errors. These areas are purely typographical due to imperfections of the software programs, and do not reflect any compromise in the patient's medical care. Plan discussed with: Other (RN) My Orders Orders - JOSE LUIS ANGELO MD Procedure Category Date Status Time Morphine Sulfate PHA 03/14/24 In Process Injection 11:45 Date of Service: Mar 14, 2024 Billing Provider: JOSE LUIS ANGELO MD Common Visit Codes: [id number] INP/OBS CARE(HIGH) JOSE LUIS ANGELO MD Mar 14, 2024 12:01
[2024-03-14] MEDS: CARBIDOPA W LEVODOPA 25/100mg TABLET PO SCH (15:24)
[2024-03-14] MEDS: Juven Orange Powder PACKET 27.5gm PO SCH (18:00)
[2024-03-14] MEDS: Ensure Enlive Strawberry 8oz Bottle PO SCH (18:00)
[2024-03-14] MEDS ORDERED: Juven Orange Powder PACKET 27.5gm PO SCH (18:00)
[2024-03-14] MEDS ORDERED: Ensure Enlive Strawberry 8oz Bottle PO SCH (18:00)
[2024-03-15 01:00] VITALS: BP 134/87; PULSE 92; RESP 18; TEMP 97.6; O2SAT 94
[2024-03-15 05:00] VITALS: BP 127/92; PULSE 113; RESP 18; TEMP 98.8; O2SAT 97
[2024-03-15 07:04] LABS: Basophils # (auto) 0.1 10 ^3/uL (0-0.2); Eosinophils # (auto) 0.2 10 ^3/uL (0-0.8); Hematocrit 40.2 % (36.0-46.0); Mean Corpuscular Hemoglobin 29.8 pg (28.0-32.0)
[2024-03-15 07:08] LABS: Eosinophils % (auto) 2.5 % (0.0-7.0); Hemoglobin 13.6 g/dL (12.2-16.2); Lymphocytes # (auto) 2.3 10 ^3/uL (0.4-5.4); Lymphocytes % (auto) 27.3 % (10.0-50.0); Mean Corpuscular Hgb Conc. 33.7 g/dL (32.0-36.0); Mean Corpuscular Volume 88.5 fL (80.0-100.0); Monocytes # (auto) 0.7 10 ^3/uL (0-1.3); Monocytes % (auto) 8.8 % (0.0-12.0); Neutrophils % (auto) 60.4 % (37.0-80.0); Nucleated Red Blood Cells % 0.1 %; Platelet Count (auto) 463 10^3/uL (140-450); Red Blood Cells 4.54 10^6/uL (4.0-5.20); Red Cell Distribution Width 15.6 % (11.8-14.3); White Blood Cell 8.3 10^3/uL (4.4-10.8)
[2024-03-15 08:00] VITALS: O2SAT 95
[2024-03-15 08:46] VITALS: BP 144/105; PULSE 142; RESP 22; TEMP 98.9; O2SAT 91
[2024-03-15] MEDS: ASPirin 81 mg TAB PO SCH (10:23)
--- NOTE | 2024-03-15 10:53 | DVHDS2 ---
Discharge Summary Date of Admission Mar 13, 2024 at 02:06 Date of Discharge: Mar 15, 2024 Labs/Diagnostic Data: Laboratory Results Test 03/15/24 06:39 03/14/24 11:48 03/14/24 05:28 03/14/24 03:33 White Blood Count 8.3 10^3/uL (4.4-10.8) Red Blood Count 4.54 10^6/uL (4.0-5.20) Hemoglobin 13.6 g/dL (12.2-16.2) Hematocrit 40.2 % (36.0-46.0) Mean Corpuscular Volume 88.5 fL (80.0-100.0) Mean Corpuscular Hemoglobin 29.8 pg (28.0-32.0) Mean Corpuscular Hemoglobin Concent 33.7 g/dL (32.0-36.0) Red Cell Distribution Width 15.6 % (11.8-14.3) Platelet Count 463 10^3/uL (140-450) Mean Platelet Volume 7.0 fL (6.9-10.8) Neutrophils (%) (Auto) 60.4 % (37.0-80.0) Lymphocytes (%) (Auto) 27.3 % (10.0-50.0) Monocytes (%) (Auto) 8.8 % (0.0-12.0) Eosinophils (%) (Auto) 2.5 % (0.0-7.0) Basophils (%) (Auto) 1.0 % (0.0-2.0) Neutrophils # (Auto) 5.0 10 ^3/uL (1.6-8.6) Lymphocytes # (Auto) 2.3 10 ^3/uL (0.4-5.4) Monocytes # (Auto) 0.7 10 ^3/uL (0-1.3) Eosinophils # (Auto) 0.2 10 ^3/uL (0-0.8) Basophils # (Auto) 0.1 10 ^3/uL (0-0.2) Nucleated Red Blood Cells 0.1 % Creatinine 0.44 mg/dL (0.550-1.02) Glomerular Filtration Rate Calc 124 mL/min (>90) Vancomycin Level Trough 15.9 ug/mL (5-10) Sodium Level 139 mmol/L (136-145) Potassium Level 3.9 mmol/L (3.5-5.1) Chloride Level 106 mmol/L (98-107) Carbon Dioxide Level 27 mmol/L (20-31) Anion Gap 6 (5-15) Blood Urea Nitrogen 7 mg/dL (9-23) BUN/Creatinine Ratio 18.4 (10.0-20.0) Serum Glucose 103 mg/dL (74-106) Calcium Level 9.7 mg/dL (8.7-10.4) Stool Occult Blood Negative (Negative) Stool Occult Blood Sample #3 (Negative) Test 03/13/24 04:17 03/12/24 21:29 Urine Color Light-yellow (Yellow) Urine Clarity Clear (Clear) Urine pH 6.0 (5.0-9.0) Urine Specific [place] 1.012 (1.001-1.035) Urine Protein Negative (Negative) Urine Ketones Negative (Negative) Urine Blood Negative /uL (Negative) Urine Nitrite Negative (Negative) Urine Bilirubin Negative (Negative) Urine Urobilinogen Normal mg/dL (Negative) Urine Leukocyte Esterase Negative /uL (Negative) Urine RBC 3 /hpf (0 - 4) Urine WBC 1 /hpf (0 - 5) Urine Squamous Epithelial Cells None seen /hpf (<5) Urine Amorphous Crystals Few /hpf (None Seen) Urine Bacteria None seen /hpf (None Seen) Urine Glucose Normal mg/dL (Normal) Platelet Estimate Adequate Lactic Acid Level 1.4 mmol/L (0.4-2.0) Total Bilirubin < 0.2 mg/dL (0.2-1.0) Aspartate Amino Transferase (AST) 15 U/L (13-40) Alanine Aminotransferase (ALT) < 9 U/L (7-40) Alkaline Phosphatase 68 U/L (46-116) Total Protein 5.7 g/dL (5.7-8.2) Albumin 3.1 g/dL (3.2-4.8) Thyroid Stimulating Hormone (TSH) 1.75 uIU/mL (0.55-4.78) Beta HCG, Quantitative 1.5 mIU/mL (1.5-4.2) Other Laboratory Tests 03/15/24 06:39 03/14/24 05:28 Brief Hx & Hospital Course: see dictated note Condition at Discharge: Poor Final Diagnosis/Problems List anemia Discharge Disposition: Hospice - Home Discharge Instruct/Medications Diet: Regular Activity: No Restrictions, As Tolerated Follow Up/Referral: hospice Medications: per hospice dc with mcqueen Discharge Statement: "Patient was advised to return to the ER or call 911 if any headaches, dizziness, shortness of breath, chest pain, abdominal pain, bleeding, fevers, or worsening of medical condition. Patient was counseled about treatment plan, medications, possible side effects, patientverbalized understanding. All questions were answered to the best of my ability. This discharge took greater then 30 minutes in planning, reviewing documentation, counseling the patient, and discussing with other team members." ASSESSMENT ASSESSMENT Assessment anemia Date of Service: Mar 15, 2024 Billing Provider: TA KEANE MD Common Visit Codes: [id number] DISCH DAY >30min TA KEANE MD Mar 15, 2024 10:53
--- NOTE | 2024-03-15 11:07 | DVHDS ---
DATE OF DISCHARGE: 03/15/2024 HISTORY OF PRESENT ILLNESS: The patient is a 43-year-old lady with history of Alzheimer's dementia and who is bedbound, who came in with fever and generalized weakness. HOSPITAL COURSE: The patient was noted to be anemic with a hemoglobin of 6.7. The patient was transfused 2 units of blood. Hemoglobin at time of discharge is 13. The patient was placed on IV fluids. Blood cultures and urine cultures have so far been negative. The patient does have a bedsore. A head CT showed moderate global cortical atrophy. The patient had a chest x-ray that showed no acute abnormality. The patient will now be discharged home back on hospice. The patient will resume her home medications as well as to be on Augmentin 500 mg p.o. b.i.d. for 7 days. She will follow up with hospice. FINAL DIAGNOSES: Therefore, * Decubitus ulcer with possible sepsis. * Alzheimer's dementia of the Devan variant. * Severe malnutrition. * Anemia, status post transfusion. * Functional quadriplegia. Time spent in discharge planning and review of plan with the patient, nursing and hospice was 38 minutes. MD JIM Betancur/MICHELLE TID: [id number] RECEIPT: [id number]
[2024-03-15 12:34] VITALS: BP 94/69; PULSE 98; RESP 19; TEMP 98.6; O2SAT 100
== END 2024-03-15 17:00 | disposition hospice, home (50) | DRG 720 ==
LOC: ER 21:13 → EDBD 21:13 → OVERFLOW 03-13 02:06 → WEST WING 03-13 16:40 → TELE-WESTW 03-14 08:50 → WEST WING 03-14 08:51
PROVIDERS: ADMIT Internal Medicine; ATTEND Internal Medicine
PROC: 30233N1 Transfusion of Nonautologous Red Blood Cells into Peripheral Vein, Percutaneous Approach (ICD-10-PCS; principal; 2024-03-13)
DX: A41.9 Sepsis, unspecified organism (principal); G93.41 Metabolic encephalopathy; E43 Unspecified severe protein-calorie malnutrition; L89.154 Pressure ulcer of sacral region, stage 4; R53.2 Functional quadriplegia; F02.80 Dementia in other diseases classified elsewhere, unspecified severity, without behavioral disturbance, psychotic disturbance, mood disturbance, and anxiety; G30.9 Alzheimer's disease, unspecified; D64.9 Anemia, unspecified; E87.6 Hypokalemia; Z68.1 Body mass index [BMI] 19.9 or less, adult; Z88.5 Allergy status to narcotic agent; Z74.01 Bed confinement status
CPT/HCPCS: 36415; 70450; 71045; 80048; 80053; 80202; 81001; 82270; 82565; 83605; 84443; 84702; 85025; 86850; 86900; 86901; 86920; 87040; 87086; 87205; 93005; G0378; J2185; J2405; J2470; J3480; J7060

== ENCOUNTER 2024-05-04 09:36 | Inpatient (IN) | payer MEDICAID ==
[~2024-05-04] VITALS: Ht 152.4 cm; Wt 33.0 kg
[2024-05-04 09:53] VITALS: PULSE 96; RESP 11; O2SAT 97
--- NOTE | 2024-05-04 10:23 | ED.PDOC ---
Altered Mental Status HPI Comments 44-year-old female brought in by EMS presents with a chief complaint of possible seizure activity. Per EMS, patients outreach specialist called after witnessing patient have "seizures" in the shower. Patient does not have history of seizures. Patietn is aphasic, unable to obtain patients baseline. Patient is bedbound. Chief Complaint: Seizure Time Seen by MD: 09:48 Primary Care Provider: UNKNOWN Reviewed Notes: Medications, Allergies Allergies: Coded Allergies: Acetaminophen (Verified Allergy, Unknown, 11/09/23) Hydrocodone (Verified Allergy, Unknown, 11/09/23) Home Meds Active Scripts Midodrine HCl (Midodrine HCl) 10 Mg Tab, 10 MG PO TID for 30 Days, #90 TAB Prov:VERA GARLAND RESIDENT 09/06/23 Nitrofurantoin (Nitrofurantoin) 100 Mg Cap, 100 MG PO BID for 5 Days, CAP Prov:VERA GARLAND RESIDENT 09/06/23 Midodrine HCl (Midodrine HCl) 10 Mg Tab, 10 MG PO TID@0600,1200,1800 for 30 Days, #90 TAB Prov:CARMENCITA SMITH MD 08/30/23 Acetaminophen (Acetaminophen) 500 Mg Tab, 500 MG PO Q4HP PRN, #30 TAB Prov:JAIR PITTMAN PAC 05/21/23 Docusate Sodium (Colace) 100 Mg Cap, 1 CAP PO BIDP PRN, #30 CAP Prov:JAIR PITTMAN PAC 05/21/23 Acetaminophen (Tylenol 8 Hour Arthritis) 650 Mg Tab, 650 MG PO QID, #30 TAB Prov:FRANKI GUTIERREZ 05/29/22 Reported Medications Levodopa W/Carbidopa (Sinemet) 25 /100 Tab, 1 TAB PO TID, #90 TAB 5 Refills 10/21/23 Aspirin (Aspir-81) 81 Mg Tab, 1 TAB PO DAILY, #30 TAB 5 Refills 24 Alprazolam (Alprazolam) 0.25 Mg Tab, 1 TAB PO TID PRN for ANXIETY, #90 TAB 10/21/23 Haloperidol Lactate (Haloperidol) 2 Mg/Ml Con, 2 MG PO Q4HR for MO, CON 10/21/23 Trazodone Hcl (Trazodone Hcl) 100 Mg Tab, 1 TAB PO QHSP PRN for SLEEP 10/21/23 Acetaminophen (Acetaminophen Extra Stren) 500 Mg Tab, 1 TAB XX Q4HPRN PRN for TEMP GREATER THAN 100.4 10/21/23 Cefdinir (Cefdinir) 300 Mg Cap, 1 CAP PO BID, #14 CAP 10/21/23 Nitrofurantoin (Nitrofurantoin) 100 Mg Cap, 1 CAP PO BID for Infection, #20 CAP 10/21/23 Trazodone HCl (Trazodone Hydrocloride) 100 Mg Tab, 100 MG PO HS, TAB 08/26/23 Carbidopa-Levodopa (Carbidopa/Levodopa Er) 25 /100 Tab, 1 100 PO TID, TAB 08/26/23 Aripiprazole (Abilify) 2 Mg Tab, 5 MG PO DAILY, TAB 08/26/23 Simvastatin (Simvastatin) 40 Mg Tab, 40 MG PO HS for 30 Days 08/26/23 Mirtazapine (Mirtazapine Oral Disintegrating Tablet) 30 Mg Tab, 1 TAB PO 04/28/23 Venlafaxine Hcl (Venlafaxine Hcl Er) 225 Mg Tab, 1 TAB PO QAM 04/28/23 Ergocalciferol (Vitamin D) 50,000 Unit Cap, 1 CAP PO QWEEKLY 04/28/23 Aspirin (ASPIRIN/ENTERIC) 81 Mg Tab, 81 MG OR, TAB 04/28/23 Information Source: Emergency Med Personnel Mode of Arrival: EMS Severity: Unable to Care for Self Timing: Minutes Duration: Since onset Prehospital treatment: None Quality: Change in Behavior, Confusion Recent: None History of: None Past Medical History PAST MEDICAL HISTORY: Denies Surgical History: Denies all surgeries ASSOCIATE FACULTY History: No Pertinent ASSOCIATE FACULTY History Family History Family History: Reviewed,noncontributory to illness, No family hx of Cancer, No family hx of DM, No family hx of Heart mary, No family hx of HTN, No family hx ofKidney mayr, No family hx of Liver mary, No family hx of Lung mary, No family hx of Stroke Social History Smoker: Non-Smoker Alcohol: Denies ETOH Use Drugs: Denies Drug Use Lives In: Home, Assisted Care Constitutional: denies: chills, diaphoresis, fatigue, fever, malaise, sweats, weakness, others EENTM: denies: blurred vision, double vision, ear bleeding, ear discharge, ear drainage, ear pain, ear ringing, eye pain, eye redness, hearing loss, mouth pain, mouth swelling, nasal discharge, nose bleeding, nose congestion, nose pain, photophobia, tearing, throat pain, throat swelling, voice changes, others Respiratory: denies: cough, hemoptysis, orthopnea, SOB at rest, shortness of breath, SOB with excertion, stridor, wheezing, others Cardiovascular: denies: chest pain, dizzy spells, diaphoresis, Dyspnea on exertion, edema, irregular heart beat, left arm pain, lightheadedness, palpitations, PND, syncope, others Gastrointestinal: denies: abdomen distended, abdominal pain, blood streaked bowels, constipated, diarrhea, dysphagia, difficulty swallowing, hematemesis, melena, nausea, poor appetite, poor fluid intake, rectal bleeding, rectal pain, vomiting, others Genitourinary: denies: abnormal vagina bleeding, burning, dyspareunia, dysuria, flank pain, frequency, hematuria, incontinence, pain, , vagina discharge, urgency, others Neurological: reports: seizure (POSSIBLE); denies: dizziness, fainting, headache, left sided numbness, left sided weakness, numbness, paresthesia, pre- existing deficit, right sided numbness, right sided weakness, speech problems, tingling, tremors, weakness, others Musculoskeletal: denies: back pain, gout, joint pain, joint swelling, muscle pain, muscle stiffness, neck pain, others Integumetry: denies: bruises, change in color, change in hair/nails, dryness, laceration, lesions, lumps, rash, wounds, others Allergic/Immunocompromised: denies: Difficulty Healing, Frequent Infections, Hives, Itching, others Hematologic/Lymphatic: denies: anemia, blood clots, easy bleeding, easy b ruising, swollen glands, others Endocrine: denies: excessive hunger, excessive sweating, excessive thirst, excessive urination, flushing, intolerance to cold, intolerance to heat, unexplained weight gain, unexplained weight loss, others Psychiatric: denies: anxiety, bipolar disorder, depression, hopeless, panic disorder, schizophrenia, sleepless, suicidal, others Unable to Obtain due to: Altered Mental Status All Other Systems: Reviewed and Negative Physical Exam General Appearance: No Apparent Distress, Thin HEENT: NOT DONE Neck: NOT DONE Respiratory: NOT DONE Cardiovascular: NOT DONE Breast Exam: Normal Gastrointestinal: Non Tender, Soft Genitalia: Deferred Pelvic: Deferred Rectal: Deferred Extremities: NOT DONE Neurologic: Alert Cerebellar Function: Unable to Test Reflexes: NOT DONE Skin: Dry, Normal Color Lymphatic: NOT DONE Was a procedure done? Was a procedure done?: No Differential Diagnosis (ALOC) Differential Diagnosis: Dehydration, Hypoglycemia, DKA, Encephalopathy, Meningitis, Sepsis, Hypoxemia, Seizure, Closed Head Injury, CVA, Drug Overdose, ETOH Intoxication, Renal Failure X-Ray, Labs, Meds, VS Vital Signs Date Time Temp Pulse Resp B/P (MAP) Pulse Ox O2 Delivery O2 Flow Rate FiO2 05/04/24 12:00 97.5 106 13 144/59 (87) 96 97.5 05/04/24 10:15 99 05/04/24 09:56 98.1 95 15 127/83 (98) 99 05/04/24 09:53 97.4 96 11 114/47 (69) 97 97.4 05/04/24 09:53 96 11 97 Room Air* 0 21 Lab Test 05/04/24 11:01 05/04/24 10:22 Range/Units White Blood Count 8.9 4.4-10.8 10^3/uL Red Blood Count 3.38 L 4.0-5.20 10^6/uL Hemoglobin 9.8 L 12.2-16.2 g/dL Hematocrit 30.6 L 36.0-46.0 % Mean Corpuscular Volume 90.4 80.0-100.0 fL Mean Corpuscular Hemoglobin 29.1 28.0-32.0 pg Mean Corpuscular Hemoglobin Concent 32.2 32.0-36.0 g/dL Red Cell Distribution Width 14.9 H 11.8-14.3 % Platelet Count 481 H 140-450 10^3/uL Mean Platelet Volume 7.2 6.9-10.8 fL Neutrophils (%) (Auto) 83.0 H 37.0-80.0 % Lymphocytes (%) (Auto) 12.1 10.0-50.0 % Monocytes (%) (Auto) 3.8 0.0-12.0 % Eosinophils (%) (Auto) 0.7 0.0-7.0 % Basophils (%) (Auto) 0.4 0.0-2.0 % Neutrophils # (Auto) 7.4 1.6-8.6 10 ^3/uL Lymphocytes # (Auto) 1.1 0.4-5.4 10 ^3/uL Monocytes # (Auto) 0.3 0-1.3 10 ^3/uL Eosinophils # (Auto) 0.1 0-0.8 10 ^3/uL Basophils # (Auto) 0 0-0.2 10 ^3/uL Nucleated Red Blood Cells 0.0 % Prothrombin Time 10.5 9.3-11.8 sec Prothrombin Time INR 0.99 0.9-1.15 Activated Partial Thromboplast Time 21.1 L 24.5-34.5 SEC D-Dimer, Quantitative 1.45 H 0.0-0.49 mg/L FEU Sodium Level 140 136-145 mmol/L Potassium Level 4.2 3.5-5.1 mmol/L Chloride Level 103 98-107 mmol/L Carbon Dioxide Level 27 20-31 mmol/L Anion Gap 10 5-15 Blood Urea Nitrogen 25 H 9-23 mg/dL Creatinine 0.46 L 0.550-1.02 mg/dL Glomerular Filtration Rate Calc 122 >90 mL/min BUN/Creatinine Ratio 54.3 H 10.0-20.0 Serum Glucose 106 74-106 mg/dL Calcium Level 10.0 8.7-10.4 mg/dL Magnesium Level 2.1 1.6-2.6 mg/dL Total Bilirubin < 0.2 L 0.2-1.0 mg/dL Aspartate Amino Transferase (AST) 18 13-40 U/L Alanine Aminotransferase (ALT) 15 7-40 U/L Alkaline Phosphatase 72 46-116 U/L Ammonia 13 11-32 umol/L Troponin I High Sensitivity < 3 L </=34 ng/L B-Type Natriuretic Peptide 2.24 0-100 pg/mL Total Protein 6.7 5.7-8.2 g/dL Albumin 3.9 3.2-4.8 g/dL Urine Color Light-brown Yellow Urine Clarity Ex.turbid Clear Urine pH 6.5 5.0-9.0 Urine Specific [place] 1.016 1.001-1.035 Urine Protein Trace H Negative Urine Ketones Negative Negative Urine Blood Trace H Negative /uL Urine Nitrite 2+ H Negative Urine Bilirubin Negative Negative Urine Urobilinogen Normal Negative mg/dL Urine Leukocyte Esterase 3+ Negative /uL Urine RBC 6 0 - 4 /hpf Urine WBC Clumps Present None Seen /hpf Urine Microscopic WBC 121 H 0-5 /HPF Urine Squamous Epithelial Cells None seen <5 /hpf Urine Uric Acid Crystals Few None Seen /hpf Urine Bacteria Many H None Seen /hpf Urine Mucus Few None Seen Urine Glucose Normal Normal mg/dL Urine Test Negative Negative X-Ray, Labs, Meds, VS Comment This 44-year-old nonverbal female presents emergency room secondary to possible seizure. Here, the patient continues to be nonverbal. However, she was noted to have 2+ nitrates in her urine suggestive of UTI. She has been on multiple rounds of antibiotics secondary to other infections. The patient was given Zosyn in the emergency room. I will admit the patient for further workup management of her confusion, possible seizure activity, and complex UTI. Time of 1ST Reevaluation: 10:19 Reevaluation 1ST: Unchanged Patient Education/Counseling: Diagnosis, Treatment, Prognosis Family Education/Counseling: Diagnosis, Treatment, Prognosis Departure 1 Departure Time of Disposition: 13:32 Impression: Primary Impression: UTI (urinary tract infection) Additional Impressions: Altered mental status Seizure Disposition: ADMITTED INPATIENT Condition: Serious Critical Care Note Critical Care Time?: No Stability Stability form required: No Heart Score Heart Score: Heart Score Response (Comments) Value History N/A 0 EKG N/A 0 Age N/A 0 Risk Factors N/A 0 Troponin N/A 0 Total 0 I personally scribed for TERRENCE PATRICIA MD ([email or web address]) on 05/04/24 at 10:23. Electronically submitted by Justin Matamoros ([email or web address]). I personally scribed for TERRENCE PATRICIA MD ([email or web address]) on 05/04/24 at 10:26. Electronically submitted by Justin Matamoros ([email or web address]). TERRENCE PATRICIA MD May 04, 2024 10:23
[2024-05-04 11:12] LABS: Urine Bacteria MANY /hpf (None Seen); Urine Blood TRACE /uL (Negative); Urine Clarity Ex.Turbid (Clear); Urine Color Light-Brown (Yellow); Urine Mucus FEW (None Seen); Urine Protein, UAD TRACE (Negative); Urine Specific Gravity 1.016 (1.001-1.035); Urine Squamous Epithelial Cell None Seen /hpf (<5); Urine Urobilinogen Normal (Negative); Urine WBC 121 /HPF (0-5); Urine WBC Clumps PRESENT /hpf (None Seen); Urine pH 6.5 (5.0-9.0)
[2024-05-04 11:36] LABS: Basophils # (auto) 0 10 ^3/uL (0-0.2); Basophils % (auto) 0.4 % (0.0-2.0); Eosinophils # (auto) 0.1 10 ^3/uL (0-0.8); Eosinophils % (auto) 0.7 % (0.0-7.0); Hematocrit 30.6 % (36.0-46.0); Hemoglobin 9.8 g/dL (12.2-16.2); Lymphocytes # (auto) 1.1 10 ^3/uL (0.4-5.4); Lymphocytes % (auto) 12.1 % (10.0-50.0); Mean Corpuscular Hemoglobin 29.1 pg (28.0-32.0); Mean Corpuscular Hgb Conc. 32.2 g/dL (32.0-36.0); Mean Corpuscular Volume 90.4 fL (80.0-100.0); Monocytes # (auto) 0.3 10 ^3/uL (0-1.3); Monocytes % (auto) 3.8 % (0.0-12.0); Neutrophils # (auto) 7.4 10 ^3/uL (1.6-8.6); Platelet Count (auto) 481 10^3/uL (140-450); Red Blood Cells 3.38 10^6/uL (4.0-5.20); Red Cell Distribution Width 14.9 % (11.8-14.3); White Blood Cell 8.9 10^3/uL (4.4-10.8)
[2024-05-04 11:38] LABS: INR 0.99 (0.9-1.15); Partial Thromboplastin Time 21.1 SEC (24.5-34.5); Prothrombin Time 10.5 sec (9.3-11.8)
[2024-05-04 11:50] LABS: Alanine Aminotransferase 15 U/L (7-40); Albumin 3.9 g/dL (3.2-4.8); Alkaline Phosphatase 72 U/L (46-116); Anion Gap 10 (5-15); Aspartate Aminotransferase 18 U/L (13-40); BUN/Creatinine Ratio 54.3 (10.0-20.0); Blood Urea Nitrogen 25 mg/dL (9-23); Carbon Dioxide 27 mmol/L (20-31); Chloride 103 mmol/L (98-107); Glucose 106 mg/dL (74-106); Magnesium 2.1 mg/dL (1.6-2.6); Potassium 4.2 mmol/L (3.5-5.1); Sodium 140 mmol/L (136-145)
[2024-05-04 11:51] LABS: Bilirubin, Total < 0.2 mg/dL (0.2-1.0); Total Protein 6.7 g/dL (5.7-8.2)
--- NOTE | 2024-05-04 11:59 | DVH ---
CHEST RADIOGRAPH Indication: aloc Technique: Single frontal view of the chest was obtained COMPARISON: XY CHEST PORTABLE on DOS: 03/12/24, XY CHEST PORTABLE on DOS: 11/09/23, XY CHEST PORTABLE on DOS: 09/04/23, XY CHEST PORTABLE on DOS: 08/26/23, XY CHEST XRAY 1 VIEW on DOS: 08/02/23 FINDINGS: Lines and Tubes: None Lungs: Clear Pleura: No effusion. No pneumothorax. Cardiomediastinal contours: Unremarkable Bones: Unremarkable IMPRESSION: No acute disease.
[2024-05-04] MEDS: PIPERACILLIN-TAZOB 3.375GM 100 ML IV ONE (14:40)
--- NOTE | 2024-05-04 16:54 | DVHHP2 ---
History of Present Illness Reason for Visit: Seizure History of Present Illness Gretta Rodriguez is a 44-year-old female with past medical history of Alzheimer's, dementia, degenerative disc disease, sacral decubitus, cholecystectomy, who is bed-bound who presents to the ED for seizure activity. Per spouse the caregiver was at be bath side giving the patient a bath when she reported seizure-like activity. Patient at baseline is nonverbal and communicates by tracking her eyes with her family members. Family also reports that patient is a one-to-one feed consumes a liquid and bland diet. Per spouse patient does not smoke, drink or use illicit drugs. Patient's unable to provide information about the seizure-like activity that he has suspecting. FREIGHT TALLIER: Dementia Past Medical History Patient is bed-bound Alzheimer's Degenerative disc disease Sacral decubitus Past Surgical History: Cholecystectomy Smoke: No ALCOHOL: none Drugs: None Lives: with Family Domestic Violence: Neg Review of Systems Neurological: Seizures Allergies: Coded Allergies: Hydrocodone (Verified Allergy, Unknown, 11/09/23) Exam Vital Signs Vital Signs Date Time Temp Pulse Resp B/P (MAP) Pulse Ox O2 Delivery O2 Flow Rate FiO2 05/04/24 12:00 97.5 106 13 144/59 (87) 96 97.5 05/04/24 09:53 Room Air* 0 21 General Appearance: No acute distress HEENT: Atraumatic Respiratory: Clear to auscultation, Normal air movement Cardiovascular: Normal S1, Normal S2 Abdominal: Soft Extremities: No clubbing, No cyanosis, No edema, Normal pulses, No tenderness/swelling Labs/Xrays Labs Test 05/04/24 11:01 05/04/24 10:22 Range/Units White Blood Count 8.9 4.4-10.8 10^3/uL Red Blood Count 3.38 L 4.0-5.20 10^6/uL Hemoglobin 9.8 L 12.2-16.2 g/dL Hematocrit 30.6 L 36.0-46.0 % Mean Corpuscular Volume 90.4 80.0-100.0 fL Mean Corpuscular Hemoglobin 29.1 28.0-32.0 pg Mean Corpuscular Hemoglobin Concent 32.2 32.0-36.0 g/dL Red Cell Distribution Width 14.9 H 11.8-14.3 % Platelet Count 481 H 140-450 10^3/uL Mean Platelet Volume 7.2 6.9-10.8 fL Neutrophils (%) (Auto) 83.0 H 37.0-80.0 % Lymphocytes (%) (Auto) 12.1 10.0-50.0 % Monocytes (%) (Auto) 3.8 0.0-12.0 % Eosinophils (%) (Auto) 0.7 0.0-7.0 % Basophils (%) (Auto) 0.4 0.0-2.0 % Neutrophils # (Auto) 7.4 1.6-8.6 10 ^3/uL Lymphocytes # (Auto) 1.1 0.4-5.4 10 ^3/uL Monocytes # (Auto) 0.3 0-1.3 10 ^3/uL Eosinophils # (Auto) 0.1 0-0.8 10 ^3/uL Basophils # (Auto) 0 0-0.2 10 ^3/uL Nucleated Red Blood Cells 0.0 % Prothrombin Time 10.5 9.3-11.8 sec Prothrombin Time INR 0.99 0.9-1.15 Activated Partial Thromboplast Time 21.1 L 24.5-34.5 SEC D-Dimer, Quantitative 1.45 H 0.0-0.49 mg/L FEU Sodium Level 140 136-145 mmol/L Potassium Level 4.2 3.5-5.1 mmol/L Chloride Level 103 98-107 mmol/L Carbon Dioxide Level 27 20-31 mmol/L Anion Gap 10 5-15 Blood Urea Nitrogen 25 H 9-23 mg/dL Creatinine 0.46 L 0.550-1.02 mg/dL Glomerular Filtration Rate Calc 122 >90 mL/min BUN/Creatinine Ratio 54.3 H 10.0-20.0 Serum Glucose 106 74-106 mg/dL Calcium Level 10.0 8.7-10.4 mg/dL Magnesium Level 2.1 1.6-2.6 mg/dL Total Bilirubin < 0.2 L 0.2-1.0 mg/dL Aspartate Amino Transferase (AST) 18 13-40 U/L Alanine Aminotransferase (ALT) 15 7-40 U/L Alkaline Phosphatase 72 46-116 U/L Ammonia 13 11-32 umol/L Troponin I High Sensitivity < 3 L </=34 ng/L B-Type Natriuretic Peptide 2.24 0-100 pg/mL Total Protein 6.7 5.7-8.2 g/dL Albumin 3.9 3.2-4.8 g/dL Urine Color Light-brown Yellow Urine Clarity Ex.turbid Clear Urine pH 6.5 5.0-9.0 Urine Specific [place] 1.016 1.001-1.035 Urine Protein Trace H Negative Urine Ketones Negative Negative Urine Blood Trace H Negative /uL Urine Nitrite 2+ H Negative Urine Bilirubin Negative Negative Urine Urobilinogen Normal Negative mg/dL Urine Leukocyte Esterase 3+ Negative /uL Urine RBC 6 0 - 4 /hpf Urine WBC Clumps Present None Seen /hpf Urine Microscopic WBC 121 H 0-5 /HPF Urine Squamous Epithelial Cells None seen <5 /hpf Urine Uric Acid Crystals Few None Seen /hpf Urine Bacteria Many H None Seen /hpf Urine Mucus Few None Seen Urine Glucose Normal Normal mg/dL Urine Test Negative Negative CHEST RADIOGRAPH Indication: aloc Technique: Single frontal view of the chest was obtained COMPARISON: XY CHEST PORTABLE on DOS: 03/12/24, XY CHEST PORTABLE on DOS: 11/09/23, XY CHEST PORTABLE on DOS: 09/04/23, XY CHEST PORTABLE on DOS: 08/26/23, XY CHEST XRAY 1 VIEW on DOS: 08/02/23 FINDINGS: Lines and Tubes: None Lungs: Clear Pleura: No effusion. No pneumothorax. Cardiomediastinal contours: Unremarkable Bones: Unremarkable IMPRESSION: No acute disease. EXAM: CT Head Without Intravenous Contrast CLINICAL INDICATION: SEIZURE TECHNIQUE: Axial computed tomography images of the head/brain without intravenous contrast. This CT exam was performed using one or more of the following dose reduction techniques: automated exposure control, adjustment of the mA and/or kV according to patient size, and/or use of iterative reconstruction technique. CONTRAST: COMPARISON: CT HEAD WITHOUT CONTRAST on DOS: 03/13/24, CT HEAD WITHOUT CONTRAST on DOS: 11/09/23, CT HEAD WITHOUT CONTRAST on DOS: 09/05/23 FINDINGS: BRAIN AND EXTRA-AXIAL SPACES: The cerebral and cerebellar sulci are prominent consistent with brain atrophy. Areas of decreased attenuation in the deep cerebral white matter are consistent with small vessel ischemic/degenerative changes. No acute intracranial hemorrhage, midline shift or mass effect. If symptoms persist, further evaluation with MRI is recommended. BONES/JOINTS: Unremarkable. No acute fracture. SOFT TISSUES: Unremarkable. SINUSES: Unremarkable as visualized. No acute sinusitis. MASTOID AIR CELLS: Unremarkable as visualized. No mastoid effusion. OTHER FINDINGS: . None. . . .. IMPRESSION: 1. Generalized brain atrophy. 2. Small vessel ischemic/degenerative changes. 3. No acute intracranial hemorrhage, midline shift or mass effect. If symptoms persist, further evaluation with MRI is recommended. Assessment/Plan Assessment/Plan Assessment/Plan: Seizure UTI Anemia Patient nonverbal at baseline Labs UA HCG noted IV antibiotics-Zosyn given in ED Ammonia level Straight cath EKG Troponin negative BNP D-dimer PT/PTT Mag level Chest x-ray noted CT head Lovenox IV antibiotics-ceftriaxone Seizure precautions ? IV Keppra ? Neuro consult Rounding team can decide if neuro consult and IV Keppra is warranted History of Alzheimer's Continue home medication History of dementia Continue medication History of degenerative disc disease Follow up outpatient with PCP Patient is bed-bound Turn q.2h reposition FEN/PPX Diet Hep-Lock PUD ppx - not indicated no history of GERD or GI bleed DVT ppx - Lovenox Discussed plan of care with nurse and patient's spouse Admit to [facility] Home medications reconciled Plan discussed with: Other My Orders Orders - SIMONE SANDHU SOUND ENGINEER AUDIO CONTROL Procedure Category Date Status Time Ct Head W Wo Contrast CT 05/04/24 Logged 16:36 Ceftriaxone 1gm/50ml PHA 05/05/24 In Process D5w (Rocephin) 09:00 Ceftriaxone 1gm/50ml PHA 05/04/24 In Process D5w (Rocephin) 16:45 Admit ADMIT 05/04/24 Transmitted 16:38 Allergies BEAU 05/04/24 In Process 16:38 Code Status CODE 05/04/24 Transmitted 16:38 Full Liq Diet DIET 05/04/24 Transmitted Dinner Ondansetron Hcl PHA 05/04/24 In Process (Zofran) 16:45 Complete Blood Count LAB 05/05/24 Verified 04:00 Comprehensive LAB 05/05/24 Verified Metabolic Panel 04:00 Enoxaparin Sodium PHA 05/05/24 In Process (Lovenox) 10:00 Seizure Precautions ED NURSING 05/04/24 Transmitted Alprazolam Tablet PHA 05/04/24 Transmitted (Xanax Tablet) 16:45 Aspirin Enteric PHA 05/05/24 Transmitted Coated Tablet 10:00 Carbidopa W Levodopa PHA 05/04/24 Transmitted Cr 25/100 (Sinemet 22:00 Ergocalciferol PHA 05/04/24 Transmitted (Vitamin D 50,000 16:45 Midodrine Tablet PHA 05/04/24 Transmitted (Proamatine Tablet) 22:00 Mirtazapine Tablet PHA 05/05/24 Transmitted (Remeron Tablet) 10:00 (Nf) Aripiprazole PHA 05/05/24 Transmitted (Abilify) 10:00 Date of Service: May 04, 2024 Billing Provider: SIMONE SANDHU Common Visit Codes: [id number] INP/OBS CARE (HIGH) SIMONE SANDHU May 04, 2024 16:54
[2024-05-04] MEDS: cefTRIAXone 1GM/50ML D5W 50 ML IV ONE (16:55)
--- NOTE | 2024-05-04 17:23 | DVH ---
EXAM: CT Head Without Intravenous Contrast CLINICAL INDICATION: SEIZURE TECHNIQUE: Axial computed tomography images of the head/brain without intravenous contrast. This CT exam was performed using one or more of the following dose reduction techniques: automated exposure control, adjustment of the mA and/or kV according to patient size, and/or use of iterative reconstru ction technique. CONTRAST: COMPARISON: CT HEAD WITHOUT CONTRAST on DOS: 03/13/24, CT HEAD WITHOUT CONTRAST on DOS: 11/09/23, CT HEAD WITHOUT CONTRAST on DOS: 09/05/23 FINDINGS: BRAIN AND EXTRA-AXIAL SPACES: The cerebral and cerebellar sulci are prominent consistent with brain atrophy. Areas of decreased attenuation in the deep cerebral white matter are consistent with small vessel ischemic/degenerative changes. No acute intracranial hemorrhage, midline shift or mass effec t. If symptoms persist, further evaluation with MRI is recommended. BONES/JOINTS: Unremarkable. No acute fracture. SOFT TISSUES: Unremarkable. SINUSES: Unremarkable as visualized. No acute sinusitis. MASTOID AIR CELLS: Unremarkable as visualized. No mastoid effusion. OTHER FINDINGS: . None. . . .. IMPRESSION: 1. Generalized brain atrophy. 2. Small vessel ischemic/degenerative changes. 3. No acute intracranial hemorrhage, midline shift or mass effect. If symptoms persist, further eval uation with MRI is recommended.
[2024-05-04 19:30] VITALS: PULSE 109; RESP 20; O2SAT 98
[2024-05-04 22:25] VITALS: BP 114/51; PULSE 95; RESP 18; TEMP 98.7; O2SAT 95
[2024-05-04] MEDS: CARBIDOPA W LEVODOPA CR 25/100mg TABLET PO SCH (22:30)
[2024-05-04 22:39] VITALS: BP 121/94; PULSE 115; RESP 20; TEMP 97.6; O2SAT 95; O2SAT 96
[2024-05-05] VITALS (8 sets, daily range): BP systolic 99–116; BP diastolic 51–78; PULSE 83–98; RESP 16–18; TEMP 96.4–98.9; O2SAT 93–100
[2024-05-05 07:48] LABS: Basophils # (auto) 0 10 ^3/uL (0-0.2); Basophils % (auto) 0.6 % (0.0-2.0); Eosinophils # (auto) 0 10 ^3/uL (0-0.8); Hemoglobin 9.9 g/dL (12.2-16.2); Lymphocytes # (auto) 1.3 10 ^3/uL (0.4-5.4); Mean Corpuscular Volume 88.2 fL (80.0-100.0); Monocytes # (auto) 0.5 10 ^3/uL (0-1.3)
[2024-05-05 07:50] LABS: Eosinophils % (auto) 0.3 % (0.0-7.0); Hematocrit 29.7 % (36.0-46.0); Lymphocytes % (auto) 16.4 % (10.0-50.0); Mean Corpuscular Hemoglobin 29.2 pg (28.0-32.0); Mean Corpuscular Hgb Conc. 33.2 g/dL (32.0-36.0); Monocytes % (auto) 6.2 % (0.0-12.0); Neutrophils # (auto) 6.2 10 ^3/uL (1.6-8.6); Neutrophils % (auto) 76.5 % (37.0-80.0); Platelet Count (auto) 580 10^3/uL (140-450); Red Blood Cells 3.37 10^6/uL (4.0-5.20); Red Cell Distribution Width 14.9 % (11.8-14.3); White Blood Cell 8.1 10^3/uL (4.4-10.8)
[2024-05-05 07:52] LABS: Alanine Aminotransferase 19 U/L (7-40); Albumin 4.4 g/dL (3.2-4.8); Alkaline Phosphatase 79 U/L (46-116); Anion Gap 13 (5-15); Aspartate Aminotransferase 27 U/L (13-40); BUN/Creatinine Ratio 52.2 (10.0-20.0); Calcium 10.2 mg/dL (8.7-10.4); Total Protein 7.6 g/dL (5.7-8.2)
[2024-05-05 07:55] LABS: Blood Urea Nitrogen 24 mg/dL (9-23); Carbon Dioxide 23 mmol/L (20-31); Chloride 108 mmol/L (98-107); Glucose 113 mg/dL (74-106); Potassium 2.8 mmol/L (3.5-5.1); Sodium 144 mmol/L (136-145)
[2024-05-05 07:59] LABS: Bilirubin, Total 0.3 mg/dL (0.2-1.0)
[2024-05-05] MEDS: cefTRIAXone 1GM/50ML D5W 50 ML IV SCH (09:00)
[2024-05-05] MEDS: ASPirin-EC 81 mg tab PO SCH (09:01)
[2024-05-05] MEDS: ENOXAPARIN SOD 30 MG/0.3 ML SYRINGE SC SCH (09:04)
[2024-05-05] MEDS: ERGOCALCIFEROL 50,000 UNIT(1.25MG) CAP PO SCH (09:04)
[2024-05-05] MEDS: MIRTAZAPINE 30 MG TAB PO SCH (09:04)
[2024-05-05] MEDS: MIDODRINE HCL 10 MG TAB PO SCH (09:05)
[2024-05-05] MEDS: CARBIDOPA W LEVODOPA CR 25/100mg TABLET PO SCH (16:02)
--- NOTE | 2024-05-05 17:14 | DVHPN2 ---
Reviewed: Care Plan, Labs, Medications, Previous Orders, Radiology Changes from previous H/P or p: No Changes General: Per HPI Objective Vitals Vital Signs Date Time Temp Pulse Resp B/P (MAP) Pulse Ox O2 Delivery O2 Flow Rate FiO2 05/05/24 12:35 97.6 88 16 102/54 (70) 98 97.6 05/05/24 08:00 Room Air* 0 21 Intake/Output Intake and Output 05/05/24 07:00 Intake Total 150 ml Output Total 1050 ml Balance -900 ml Intake Oral 0 ml IV Total 150 ml Output Urine Total 1050 ml Medications Current Medications Medications Dose Ordered Sig/Dannielle Route Start Time Stop Time Status Last Admin Dose Admin Ceftriaxone Sodium 50 ml @ 100 mls/hr DAILY@09 IV 05/05/24 09:00 05/05/24 09:00 100 MLS/HR Ondansetron HCl 4 mg Q4HP PRN IV 05/04/24 16:45 Enoxaparin Sodium 30 mg DAILY SC 05/05/24 10:00 05/05/24 09:04 30 MG Alprazolam 0.25 mg TID PRN PO 05/04/24 16:45 Aspirin 81 mg DAILY PO 05/05/24 10:00 05/05/24 09:01 81 MG Ergocalciferol 50,000 unit QWEEKLY PO 05/05/24 10:00 05/05/24 09:04 50,000 UNIT Midodrine 10 mg TIDWM PO 05/05/24 08:00 05/05/24 16:02 10 MG Mirtazapine 30 mg DAILY PO 05/05/24 10:00 05/05/24 09:04 30 MG Patient Own Medication 5 mg DAILY PO 05/05/24 10:00 Carbidopa/Levodopa 1 tab TID PO 05/05/24 14:00 05/05/24 16:02 1 TAB Laboratory Results Laboratory Tests 05/05/24 06:15 Chemistry Test 05/05/24 06:15 Albumin 4.4 g/dL (3.2-4.8) Calcium Level 10.2 mg/dL (8.7-10.4) Total Protein 7.6 g/dL (5.7-8.2) LFT Test 05/05/24 06:15 Alanine Aminotransferase (ALT) 19 U/L (7-40) Alkaline Phosphatase 79 U/L (46-116) Aspartate Amino Transferase (AST) 27 U/L (13-40) Total Bilirubin 0.3 mg/dL (0.2-1.0) Urinalysis Test 05/04/24 10:22 Urine Color Light-brown (Yellow) Urine Clarity Ex.turbid (Clear) Urine pH 6.5 (5.0-9.0) Urine Specific [place] 1.016 (1.001-1.035) Urine Protein Trace (Negative) H Urine Ketones Negative (Negative) Urine Blood Trace /uL (Negative) H Urine Nitrite 2+ (Negative) H Urine Bilirubin Negative (Negative) Urine Urobilinogen Normal mg/dL (Negative) Urine Leukocyte Esterase 3+ /uL (Negative) Urine RBC 6 /hpf (0 - 4) Urine WBC Clumps Present /hpf (None Seen) Urine Microscopic WBC 121 /HPF (0-5) H Urine Squamous Epithelial Cells None seen /hpf (<5) Urine Uric Acid Crystals Few /hpf (None Seen) Urine Bacteria Many /hpf (None Seen) H Urine Mucus Few (None Seen) Urine Glucose Normal mg/dL (Normal) Urine Test Negative (Negative) Assessment/Plan Assessment/Plan Gretta Rodriguez is a 44-year-old female with past medical history of Alzheimer's, dementia, degenerative disc disease, sacral decubitus, cholecystectomy, who is bed-bound who presents to the ED for seizure activity. Per spouse the caregiver was at be bath side giving the patient a bath when she reported seizure-like activity. Patient at baseline is nonverbal and communicates by tracking her eyes with her family members. Family also reports that patient is a one-to-one feed consumes a liquid and bland diet. Per spouse patient does not smoke, drink or use illicit drugs. Patient's unable to provide information about the seizure-like activity that he has suspecting. UTI Anemia seizure disorder Patient nonverbal at baseline Labs UA HCG noted IV antibiotics-Zosyn given in ED Ammonia level Straight cath EKG Troponin negative BNP D-dimer PT/PTT Mag level Chest x-ray noted CT head Lovenox IV antibiotics-ceftriaxone Seizure precautions ? IV Keppra ? Neuro consult Rounding team can decide if neuro consult and IV Keppra is warranted History of Alzheimer's Continue home medication History of dementia Continue medication History of degenerative disc disease Follow up outpatient with PCP Patient is bed-bound 05/05/2024: pending evaluation by neurology continue with empirical IV Abx for UTI Plan discussed with: Patient My Orders Orders - PARKER NICKERSON DO Procedure Category Date Status Time Mechanical Soft Diet DIET 05/05/24 Transmitted Lunch Date of Service: May 05, 2024 Billing Provider: PARKER NICKERSON DO Common Visit Codes: [id number] INP/OBS CARE(HIGH) PARKER NICKERSON DO May 05, 2024 17:14
[2024-05-05] MEDS: POTASSIUM CHL 20 Meq TABLET PO ONE (19:08)
[2024-05-05] MEDS: ALPRAZolam 0.25 MG TAB PO PRN (21:34)
[2024-05-05] MEDS: ONDANSETRON HCL 4 MG/2 ML VIAL IV PRN (23:50)
[2024-05-06 01:00] VITALS: BP 120/62; PULSE 83; RESP 17; TEMP 98.5; O2SAT 93
[2024-05-06 05:00] VITALS: BP 118/82; PULSE 95; RESP 18; TEMP 98.3; O2SAT 93
[2024-05-06 08:52] VITALS: BP 100/64; PULSE 78; RESP 16; TEMP 97.7; O2SAT 97
[2024-05-06 13:00] VITALS: BP 127/77; PULSE 96; RESP 16; TEMP 99.2; O2SAT 94
[2024-05-06 13:51] LABS: Alanine Aminotransferase 10 U/L (7-40); Albumin 4.8 g/dL (3.2-4.8); Alkaline Phosphatase 76 U/L (46-116); Anion Gap 10 (5-15); Aspartate Aminotransferase 22 U/L (13-40); BUN/Creatinine Ratio 58.2 (10.0-20.0); Carbon Dioxide 30 mmol/L (20-31)
[2024-05-06 13:52] LABS: Total Protein 8.2 g/dL (5.7-8.2)
[2024-05-06 13:54] LABS: Bilirubin, Total 0.3 mg/dL (0.2-1.0); Blood Urea Nitrogen 32 mg/dL (9-23); Chloride 107 mmol/L (98-107); Glucose 120 mg/dL (74-106); Potassium 3.3 mmol/L (3.5-5.1); Sodium 147 mmol/L (136-145)
--- NOTE | 2024-05-06 14:34 | DVHPN2 ---
Reviewed: Care Plan, Labs, Medications, Previous Orders, Radiology Changes from previous H/P or p: No Changes General: Per HPI Objective Vitals Vital Signs Date Time Temp Pulse Resp B/P (MAP) Pulse Ox O2 Delivery O2 Flow Rate FiO2 05/06/24 13:00 99.2 96 16 127/77 (94) 94 99.2 05/06/24 08:00 Room Air* 0 21 Intake/Output Intake and Output 05/06/24 07:00 Intake Total 679 ml Output Total 500 ml Balance 179 ml Intake Oral 679 ml Output Urine Total 500 ml # Bowel Movements 1 Medications Current Medications Medications Dose Ordered Sig/Dannielle Route Start Time Stop Time Status Last Admin Dose Admin Ceftriaxone Sodium 50 ml @ 100 mls/hr DAILY@09 IV 05/05/24 09:00 05/06/24 09:05 100 MLS/HR Ondansetron HCl 4 mg Q4HP PRN IV 05/04/24 16:45 05/06/24 09:06 4 MG Enoxaparin Sodium 30 mg DAILY SC 05/05/24 10:00 05/06/24 09:05 30 MG Alprazolam 0.25 mg TID PRN PO 05/04/24 16:45 05/05/24 21:34 0.25 MG Aspirin 81 mg DAILY PO 05/05/24 10:00 05/06/24 09:04 81 MG Ergocalciferol 50,000 unit QWEEKLY PO 05/05/24 10:00 05/05/24 09:04 50,000 UNIT Midodrine 10 mg TIDWM PO 05/05/24 08:00 05/06/24 08:39 10 MG Mirtazapine 30 mg DAILY PO 05/05/24 10:00 05/06/24 09:05 30 MG Patient Own Medication 5 mg DAILY PO 05/05/24 10:00 Carbidopa/Levodopa 1 tab TID PO 05/05/24 14:00 05/06/24 05:41 1 TAB Multivitamins/ Minerals 1 tab DAILY PO 05/07/24 10:00 Enteral Nutritional Formula 240 ml BIDWM PO 05/06/24 18:00 Enteral Nutritional Formula 27.5 gm BID PO 05/06/24 22:00 Levetiracetam 500 mg BID PO 05/06/24 22:00 Laboratory Results Laboratory Tests 05/05/24 06:15 2/16/25 13:04 Chemistry Test 05/06/24 13:04 Albumin 4.8 g/dL (3.2-4.8) Calcium Level 11.0 mg/dL (8.7-10.4) H Total Protein 8.2 g/dL (5.7-8.2) LFT Test 05/06/24 13:04 Alanine Aminotransferase (ALT) 10 U/L (7-40) Alkaline Phosphatase 76 U/L (46-116) Aspartate Amino Transferase (AST) 22 U/L (13-40) Total Bilirubin 0.3 mg/dL (0.2-1.0) Urinalysis Test 05/04/24 10:22 Urine Color Light-brown (Yellow) Urine Clarity Ex.turbid (Clear) Urine pH 6.5 (5.0-9.0) Urine Specific [place] 1.016 (1.001-1.035) Urine Protein Trace (Negative) H Urine Ketones Negative (Negative) Urine Blood Trace /uL (Negative) H Urine Nitrite 2+ (Negative) H Urine Bilirubin Negative (Negative) Urine Urobilinogen Normal mg/dL (Negative) Urine Leukocyte Esterase 3+ /uL (Negative) Urine RBC 6 /hpf (0 - 4) Urine WBC Clumps Present /hpf (None Seen) Urine Microscopic WBC 121 /HPF (0-5) H Urine Squamous Epithelial Cells None seen /hpf (<5) Urine Uric Acid Crystals Few /hpf (None Seen) Urine Bacteria Many /hpf (None Seen) H Urine Mucus Few (None Seen) Urine Glucose Normal mg/dL (Normal) Urine Test Negative (Negative) Microbiology Microbiology Date/Time Source Procedure Growth Status 05/05/24 05:08 Coccyx Gram Stain - Final Resulted 05/05/24 05:08 Coccyx Wound Culture - Preliminary Resulted Assessment/Plan Assessment/Plan Gretta Rodriguez Alicia is a 44-year-old female with past medical history of Alzheimer's, dementia, degenerative disc disease, sacral decubitus, cholecystectomy, who is bed-bound who presents to the ED for seizure activity. Per spouse the caregiver was at be bath side giving the patient a bath when she reported seizure-like activity. Patient at baseline is nonverbal and communicates by tracking her eyes with her family members. Family also reports that patient is a one-to-one feed consumes a liquid and bland diet. Per spouse patient does not smoke, drink or use illicit drugs. Patient's unable to provide information about the seizure-like activity that he has suspecting. UTI Anemia seizure disorder Patient nonverbal at baseline Labs UA HCG noted IV antibiotics-Zosyn given in ED Ammonia level Straight cath EKG Troponin negative BNP D-dimer PT/PTT Mag level Chest x-ray noted CT head Lovenox IV antibiotics-ceftriaxone Seizure precautions ? IV Keppra ? Neuro consult Rounding team can decide if neuro consult and IV Keppra is warranted History of Alzheimer's Continue home medication History of dementia Continue medication History of degenerative disc disease Follow up outpatient with PCP Patient is bed-bound 05/05/2024: pending evaluation by neurology continue with empirical IV Abx for UTI 05/06/2024: started on Keppra 500mg BID IVPB obtaining an abd X-ray to rule out SBO per family, pt has nausea, which is unusual for her pt is bedbound, non-verbal as baseline Plan discussed with: Patient My Orders Orders - PARKER NICKERSON DO Procedure Category Date Status Time * Neurology Consult CONS 05/05/24 Transmitted 17:19 * Dietary Consult CONS 05/05/24 Transmitted 19:12 Cleanse Wound With BEAU 05/05/24 In Process Wound Clean 13:56 Cover Wound With Foam BEAU 05/05/24 In Process Dressing 13:56 Levetiracetam Tablet PHA 05/06/24 In Process (Keppra Tablet) 22:00 Date of Service: May 06, 2024 Billing Provider: PARKER NICKERSON DO Common Visit Codes: [id number] INP/OBS CARE(HIGH) PARKER NICKERSON DO May 06, 2024 14:34
--- NOTE | 2024-05-06 16:21 | DVH ---
Exam: XY KUB ABDOMEN SINGLE VIEW Indication: rule out bowel obstruction Comparison: XY KUB ABDOMEN SINGLE VIEW on DOS: 05/20/23, XY KUB ABDOMEN SINGLE VIEW on DOS: 05/04/23 Technique: 2 radiographic views of the abdomen. Findings: Large volume colonic stool. Common bile duct stent in-situ. Nonobstructive bowel gas pattern noted. There is no definite evidence for pneumoperitoneum. No abnormal calcifications noted. Impression: Severe large volume colonic stool.
--- NOTE | 2024-05-06 16:54 | DVHINCON2 ---
Date of service: May 06, [address] Montoya Reason for Consultation Seizure History of Present Illness Mr. Sarath De Santiago is a 44 years old right-handed female with a history of dementia, the patient was admitted to the hospital on 05/04/2024 with a chief company of seizure-like activity. The patient is awake, but she was not able to provide history, her in the room but he did not witnessed seizure, the history is obtained from the patient's plant care worker On 05/04/2024, his caregiver witnessed the event where the patient was shaking in the arms, legs and body, eyes and head were turning backward, with heart breathing, company nonresponsiveness, and the event was about 3 minutes, she woke up 3 minutes after the event was over. There was no biting during this event, she was never had similar symptoms previously Keppra started when she was in the ER In the age of 31s, the patient was has progressive cognitive dysfunction, and she was said to have Alzheimer disease. The patient was has been nonverbal for five years. She saw Dr. Adame, a local neurologist. She was has elevated muscle tone, and Sinemet helped the symptoms Urinalysis, 05/04/2024: WBC: 6, urine leukocyte esterase: 3+, urine nitrate: 2+ WBC/HB/PLT/MCV, 05/05/2024: 8.1/9.9/580/88.2 CMP, 05/04/2024: Unremarkable TG/HDL/LDL/HDL, : 68/144/67/61 Vitamin B12, 08/2023: 473 Folic acid, 08/2023: 13.12 TSH, 02/2024:1.75 CT head, 05/04/2024: 1. Generalized brain atrophy. 2. Small vessel ischemic/degenerative changes. 3. No acute intracranial hemorrhage, midline shift or mass effect. If symptoms persist, further evaluation with MRI is recommended Past Medical History Alzheimer's disease, pressure sore Past Surgical History Cholecystectomy, appendectomy Family History: Alzheimer's disease G8 FATHER G8 FATHER Alzheimer's disease G8 FATHER G8 FATHER FH: hypothyroidism G8 MOTHER FH: thyroid disease G8 MOTHER Hypercholesterolemia G8 MOTHER Family History Hypothyroidism. Her father and well or father's brother had dementia in the age of 36 Social History She was not a tobacco smoker, no history of alcohol or recreational substance abuse Allergies: Coded Allergies: Hydrocodone (Verified Allergy, Unknown, 11/09/23) Home Meds Active Scripts Midodrine HCl (Midodrine HCl) 10 Mg Tab, 10 MG PO TID for 30 Days, #90 TAB Prov:VERA GARLAND RESIDENT 09/06/23 Nitrofurantoin (Nitrofurantoin) 100 Mg Cap, 100 MG PO BID for 5 Days, CAP Prov:VERA GARLAND RESIDENT 09/06/23 Midodrine HCl (Midodrine HCl) 10 Mg Tab, 10 MG PO TID@0600,1200,1800 for 30 Days, #90 TAB Prov:CARMENCITA SMITH MD 08/30/23 Acetaminophen (Acetaminophen) 500 Mg Tab, 500 MG PO Q4HP PRN, #30 TAB Prov:JAIR PITTMAN PAC 05/21/23 Docusate Sodium (Colace) 100 Mg Cap, 1 CAP PO BIDP PRN, #30 CAP Prov:JAIR PITTMAN PAC 05/21/23 Acetaminophen (Tylenol 8 Hour Arthritis) 650 Mg Tab, 650 MG PO QID, #30 TAB Prov:FRANKI GUTIERREZ 05/29/22 Reported Medications Levodopa W/Carbidopa (Sinemet) 25 /100 Tab, 1 TAB PO TID, #90 TAB 5 Refills 10/21/23 Aspirin (Aspir-81) 81 Mg Tab, 1 TAB PO DAILY, #30 TAB 5 Refills 10/21/23 Alprazolam (Alprazolam) 0.25 Mg Tab, 1 TAB PO TID PRN for ANXIETY, #90 TAB 10/21/23 Haloperidol Lactate (Haloperidol) 2 Mg/Ml Con, 2 MG PO Q4HR for MO, CON 10/21/23 Trazodone Hcl (Trazodone Hcl) 100 Mg Tab, 1 TAB PO QHSP PRN for SLEEP 10/21/23 Acetaminophen (Acetaminophen Extra Stren) 500 Mg Tab, 1 TAB XX Q4HPRN PRN for TEMP GREATER THAN 100.4 10/21/23 Cefdinir (Cefdinir) 300 Mg Cap, 1 CAP PO BID, #14 CAP 10/21/23 Nitrofurantoin (Nitrofurantoin) 100 Mg Cap, 1 CAP PO BID for Infection, #20 CAP 10/21/23 Trazodone HCl (Trazodone Hydrocloride) 100 Mg Tab, 100 MG PO HS, TAB 08/26/23 Carbidopa-Levodopa (Carbidopa/Levodopa Er) 25 /100 Tab, 1 100 PO TID, TAB 08/26/23 Aripiprazole (Abilify) 2 Mg Tab, 5 MG PO DAILY, TAB 08/26/23 Simvastatin (Simvastatin) 40 Mg Tab, 40 MG PO HS for 30 Days 08/26/23 Mirtazapine (Mirtazapine Oral Disintegrating Tablet) 30 Mg Tab, 1 TAB PO 04/28/23 Venlafaxine Hcl (Venlafaxine Hcl Er) 225 Mg Tab, 1 TAB PO QAM 04/28/23 Ergocalciferol (Vitamin D) 50,000 Unit Cap, 1 CAP PO QWEEKLY 04/28/23 Aspirin (ASPIRIN/ENTERIC) 81 Mg Tab, 81 MG OR, TAB 04/28/23 Current Medications Current Medications Medications (Trade) Dose Ordered Sig/Dannielle Route PRN Reason Start Time Stop Time Status Last Admin Multivitamins/ Minerals (Mvi W/ Minerals Tablet) 1 tab DAILY PO 05/07/24 10:00 Enteral Nutritional Formula (Ensure Enlive) 240 ml BIDWM PO 05/06/24 18:00 Enteral Nutritional Formula (Cheko [place] Powder PACKET) 27.5 gm BID PO 05/06/24 22:00 Levetiracetam (Keppra Tablet) 500 mg BID PO 05/06/24 22:00 05/06/24 14:32 DC Levetiracetam 100 ml @ 400 mls/hr BID IV 05/06/24 22:00 Review of Systems As above, the other systems are negative Vital Signs Vital Signs Date Time Temp Pulse Resp B/P (MAP) Pulse Ox O2 Delivery O2 Flow Rate FiO2 05/06/24 13:00 99.2 96 16 127/77 (94) 94 99.2 05/06/24 08:00 Room Air* 0 21 Physical Exam GENERAL EXAM: General: the patient is well developed and poorly nourished. No acute distress. HEENT: Normocephalic, neck is supple, no carotid bruits. No mass RESPIRATORY: Normal respiratory effort with symmetrical lung expansion. Lungs clear to auscultation. CARDIOVASCULAR: Regular rate and rhythm with no murmurs. S1, S2. ABDOMEN: Soft, nontender, normal bowel sound Pressure sore NEUROLOGICAL: MENTAL STATUS: Awake, she was responsive to verbal stimuli, she tracks SPEECH, LANGUAGE, HIGHER CORTICAL FUNCTION: She can not vocalize CRANIAL NERVES: #2: Intact visual rodriguez to confrontation. #3,4,6: Pupils are equal, round and reactive. EOMs full and conjugate. #5: Facial sensation intact in all three divisions bilaterally. Mandibular strength intact. #7: Facial muscles symmetrical and strength intact. #8: Hearing grossly normal to voice. #9,10: Deferred #11: Deferred #12: Deferred SENSATION: Sensation to touch and pinprick is ok MOTOR: Increased tone in the arms and legs, diffuse muscle atrophy. She does not move the arms and legs REFLEXES: Deep tendon reflexes are stronger in the left arm than leg. No pathological reflexes. CEREBELLAR/COORDINATION: Deferred GAIT/STATION: deferred. Labs/Diagnostic Data Labs Test 05/06/24 13:04 05/05/24 06:15 05/04/24 11:01 05/04/24 10:22 Range/Units Sodium Level 147 H 136-145 mmol/L Potassium Level 3.3 L 3.5-5.1 mmol/L Chloride Level 107 98-107 mmol/L Carbon Dioxide Level 30 20-31 mmol/L Anion Gap 10 5-15 Blood Urea Nitrogen 32 H 9-23 mg/dL Creatinine 0.55 0.550-1.02 mg/dL Glomerular Filtration Rate Calc 117 >90 mL/min BUN/Creatinine Ratio 58.2 H 10.0-20.0 Serum Glucose 120 H 74-106 mg/dL Calcium Level 11.0 H 8.7-10.4 mg/dL Total Bilirubin 0.3 0.2-1.0 mg/dL Aspartate Amino Transferase (AST) 22 13-40 U/L Alanine Aminotransferase (ALT) 10 7-40 U/L Alkaline Phosphatase 76 46-116 U/L Total Protein 8.2 5.7-8.2 g/dL Albumin 4.8 3.2-4.8 g/dL White Blood Count 8.1 4.4-10.8 10^3/uL Red Blood Count 3.37 L 4.0-5.20 10^6/uL Hemoglobin 9.9 L 12.2-16.2 g/dL Hematocrit 29.7 L 36.0-46.0 % Mean Corpuscular Volume 88.2 80.0-100.0 fL Mean Corpuscular Hemoglobin 29.2 28.0-32.0 pg Mean Corpuscular Hemoglobin Concent 33.2 32.0-36.0 g/dL Red Cell Distribution Width 14.9 H 11.8-14.3 % Platelet Count 580 H 140-450 10^3/uL Mean Platelet Volume 7.9 6.9-10.8 fL Neutrophils (%) (Auto) 76.5 37.0-80.0 % Lymphocytes (%) (Auto) 16.4 10.0-50.0 % Monocytes (%) (Auto) 6.2 0.0-12.0 % Eosinophils (%) (Auto) 0.3 0.0-7.0 % Basophils (%) (Auto) 0.6 0.0-2.0 % Neutrophils # (Auto) 6.2 1.6-8.6 10 ^3/uL Lymphocytes # (Auto) 1.3 0.4-5.4 10 ^3/uL Monocytes # (Auto) 0.5 0-1.3 10 ^3/uL Eosinophils # (Auto) 0 0-0.8 10 ^3/uL Basophils # (Auto) 0 0-0.2 10 ^3/uL Nucleated Red Blood Cells 0.0 % Prothrombin Time 10.5 9.3-11.8 sec Prothrombin Time INR 0.99 0.9-1.15 Activated Partial Thromboplast Time 21.1 L 24.5-34.5 SEC D-Dimer, Quantitative 1.45 H 0.0-0.49 mg/L FEU Magnesium Level 2.1 1.6-2.6 mg/dL Ammonia 13 11-32 umol/L Troponin I High Sensitivity < 3 L </=34 ng/L B-Type Natriuretic Peptide 2.24 0-100 pg/mL Urine Color Light-brown Yellow Urine Clarity Ex.turbid Clear Urine pH 6.5 5.0-9.0 Urine Specific [place] 1.016 1.001-1.035 Urine Protein Trace H Negative Urine Ketones Negative Negative Urine Blood Trace H Negative /uL Urine Nitrite 2+ H Negative Urine Bilirubin Negative Negative Urine Urobilinogen Normal Negative mg/dL Urine Leukocyte Esterase 3+ Negative /uL Urine RBC 6 0 - 4 /hpf Urine WBC Clumps Present None Seen /hpf Urine Microscopic WBC 121 H 0-5 /HPF Urine Squamous Epithelial Cells None seen <5 /hpf Urine Uric Acid Crystals Few None Seen /hpf Urine Bacteria Many H None Seen /hpf Urine Mucus Few None Seen Urine Glucose Normal Normal mg/dL Urine Test Negative Negative Microbiology Date/Time Source Procedure Growth Status 05/05/24 05:08 Coccyx Gram Stain - Final Resulted 05/05/24 05:08 Coccyx Wound Culture - Preliminary Resulted Assessment Episode of convulsion with loss of consciousness Likely new onset grand mal seizure Dementia Presenile Alzheimer's disease Increased muscle tone secondary to dementia Cachexia Pressure sore UTI Plan/Recommendation Monitoring Supportive treatment Telemetry EEG MR head Keppra 500 mg b.i.d. Ativan for seizure breakthrough Sinemet 25/100 t.i.d. for abnormal muscle tone IV antibiotics Wound care Prognosis: Poor This medical document was created using an electronic medical record system with [employer] dictation system. Although this document has been carefully reviewed, there may still be some phonetic and typographical errors. These areas are purely typographical due to imperfections of the software programs, and do not reflect any compromise in the patient's medical care. Plan discussed with: Spouse, Other FARZAD ALSTON MD May 06, 2024 16:54
[2024-05-06 17:00] VITALS: BP 102/79; PULSE 90; RESP 16; TEMP 99.8; O2SAT 94
[2024-05-06] MEDS ORDERED: LORazepam 2MG/ML-1ML VIAL IV PRN ×2 (17:30)
[2024-05-06] MEDS: Ensure Enlive Chocolate 8oz Bottle PO SCH (18:10)
[2024-05-06 21:00] VITALS: BP 113/53; PULSE 105; RESP 17; TEMP 97.7; O2SAT 94
[2024-05-06] MEDS ORDERED: levETIRAcetam 500 MG TAB PO SCH (22:00)
[2024-05-06] MEDS: Juven Orange Powder PACKET 27.5gm PO SCH (22:00)
[2024-05-06] MEDS: levETIRAcetam 500 mg/100ml 100 ML IV SCH (23:16)
[2024-05-07] VITALS (8 sets, daily range): BP systolic 79–103; BP diastolic 45–78; PULSE 103–131; RESP 14–18; TEMP 97.8–98.5; O2SAT 87–98
[2024-05-07] MEDS: MULTIPLE VITAMINS W/ MINERALS TAB PO SCH (10:03)
--- NOTE | 2024-05-07 12:16 | DVHPN2 ---
Progress Note Date Seen: May 07, 2024 Medical Necessity Reason Pt with a Central, PICC or Fol: Yes The following are medically ne: Mcqueen Catheter Reason for mcqueen catheter: Strict I&O Subjective Patient reports: No new complaints Review of Systems: HEENT:Normal, CVS:Normal, RESPIRATORY:Normal, GI:Normal, :Normal, MSK:Normal, NEURO:Normal Objective vital signs Vital Sign Date Time Temp Pulse Resp B/P (MAP) Pulse Ox O2 Delivery O2 Flow Rate FiO2 05/07/24 08:40 98.5 108 14 103/50 (67) 98 98.5 05/07/24 08:00 Room Air* 0 21 Total Intake and Output 05/06/24 05/06/24 05/07/24 15:00 23:00 07:00 Intake Total 400 ml 175 ml Output Total 100 ml 100 ml Balance 300 ml 75 ml medications Current Medications Medications Dose Ordered Sig/Dannielle Route Start Time Stop Time Status Last Admin Dose Admin Ceftriaxone Sodium 50 ml @ 100 mls/hr DAILY@09 IV 05/05/24 09:00 05/07/24 09:51 100 MLS/HR Ondansetron HCl 4 mg Q4HP PRN IV 05/04/24 16:45 05/07/24 09:59 4 MG Enoxaparin Sodium 30 mg DAILY SC 05/05/24 10:00 05/07/24 10:06 30 MG Alprazolam 0.25 mg TID PRN PO 05/04/24 16:45 05/05/24 21:34 0.25 MG Aspirin 81 mg DAILY PO 05/05/24 10:00 05/06/24 09:04 81 MG Ergocalciferol 50,000 unit QWEEKLY PO 05/05/24 10:00 05/05/24 09:04 50,000 UNIT Midodrine 10 mg TIDWM PO 05/05/24 08:00 05/07/24 11:40 10 MG Mirtazapine 30 mg DAILY PO 05/05/24 10:00 05/07/24 10:04 30 MG Carbidopa/Levodopa 1 tab TID PO 05/05/24 14:00 05/06/24 14:00 1 TAB Multivitamins/ Minerals 1 tab DAILY PO 05/07/24 10:00 05/07/24 10:03 1 TAB Enteral Nutritional Formula 240 ml BIDWM PO 05/06/24 18:00 05/06/24 18:10 240 ML Enteral Nutritional Formula 27.5 gm BID PO 05/06/24 22:00 05/07/24 09:51 27.5 GM Levetiracetam 100 ml @ 400 mls/hr BID IV 05/06/24 22:00 05/07/24 09:51 400 MLS/HR Lorazepam 1 mg ONCE PRN IV 05/06/24 17:30 Lorazepam 1 mg Q5MINP PRN IV 05/06/24 17:30 Examination: GENERAL:Normal, HEENT:Normal, NECK:Normal, LUNGS:Normal, CVS:Normal, ABDOMEN:Normal, MSK:Normal, MSK:Abnormal (DECUB ULCER), SKIN:Normal, NEURO:Normal, :Normal laboratory and microbiology Laboratory Tests 05/06/24 13:04 05/05/24 06:15 Test 05/06/24 13:04 Range/Units Serum Glucose 120 H 74-106 mg/dL Microbiology Date/Time Source Procedure Growth Status 05/05/24 05:08 Coccyx Gram Stain - Final Resulted 05/05/24 05:08 Wound Culture - Preliminary Staphylococcus aureus Resulted Problem List/Assessment/Plan Problem List/Assessment/Plan * Decubitus ulcer with possible sepsis with s aureus: iv cipo * uti: culture, iv antibiotics * Alzheimer's dementia of the Devan variant. * Severe malnutrition. * Anemia, * Functional quadriplegia. * new onset seizure: on keppra advance care planning- full code- time spent 19 mins Plan discussed with: Patient My Orders My Orders Orders - TA KEANE MD Procedure Category Date Status Time Urine Bacterial BRENDA 05/07/24 Verified Culture 12:11 Ciprofloxacin PHA 05/07/24 Verified 400mg/200ml (Cipro Iv) 12:15 Ciprofloxacin PHA 05/07/24 Verified 400mg/200ml (Cipro Iv) 22:00 D5 1/2 Ns Potassium PHA 05/07/24 Verified 20meq 12:15 Basic Metabolic Panel LAB 05/08/24 Verified 06:00 Dietary Evaluation Review Recommendations by RD: Protein Supplementation Comments: 1) Initiate Cheko @ 1 pk bid 2) Initiate Boost bid 3) Initiate multivitamin 4) Continue to monitor appetite, labs, and skin integrity Expected Outcomes/Goals: 1) appetite and labs to improve 2) wound to improve 3) f/u in 3-5 days Date of Service: May 07, 2024 Billing Provider: TA KEANE MD Common Visit Codes: [id number] INP/OBS CARE(HIGH) Secondary Visit Codes: [id number] CARE PLAN 30 MINUTES TA KEANE MD May 07, 2024 12:16
--- NOTE | 2024-05-07 13:15 | ECG ---
[facility] Test Date: 2024-05-04 Test Time: 10:15:32 Pat Name: TOBIAS YORKDepartment: ED Room: 0279T Gender: F Side Splitter: JOYCE : 1980 Requested By: TERRENCE PATRICIA Order Number: [id number] Reading MD: Enrrique Roberto Measurements Intervals [place] Rate: 99 P: 0 [place]: 34 QRS: 25 QRSD: 82 T: 82 QT: 404 QTc: 519 Interpretive Statements Sinus tachycardia Low voltage, extremity and precordial leads Prolonged QT interval Baseline wander in lead(s) V4 Electronically Signed On 05-10-2024 21:16:20 PST by Enrrique Roberto Please click the below link to view image of tracing.
[2024-05-07] MEDS: D5W/SOD CHL 0.45%/KCL 20MEQ 1,000 ML IV SCH (13:35)
[2024-05-07] MEDS: CIPROFLOXACIN 400MG/200ML 200 ML IV ONE (13:35)
--- NOTE | 2024-05-07 16:37 | MEDREC ---
[facility] Intervention Section I [facility] Intervention: Duplication of therapy (POTENTIAL DUPLICATION CEFTRIAXONE / CIPROFLOXACIN - PLEASE CONSIDER D/C ONE OF THEM ) RIA VAN PHARMACIST May 07, 2024 16:37
--- NOTE | 2024-05-07 18:08 | DVH ---
EXAM: MRI BRAIN HEAD WO CONTRAST CLINICAL HISTORY: Sz COMPARISON: Multiple prior CTs, latest on 05/04/2024 TECHNIQUE: Multiplanar, multisequence magnetic resonance imaging of the brain was performed without intravenous contrast. FINDINGS: Moderate diffuse brain atrophy. [id number] frontal lobe predominant periventricular T2/FLAIR hy perintensity which may represent chronic small-vessel ischemic changes versus white-matter disorder. There are no hemorrhages, masses, mass effect, midline shift, herniation or cytotoxic edema following large a vascular territory. There is no intra-axial or extra-axial fluid collections. There is no e vidence of hydrocephalus. There is cavum septum pellucidum et vergae. The visualized vascular flow vo ids are maintained. On the coronal images, bilateral hippocampi are symmetric with normal lamination and no abnormal sign al. The pituitary gland, sella and parasellar regions are unremarkable. The cerebellar tonsils are in no rmal position. The cerebellum is unremarkable. The orbits and globes are unremarkable. The paranasal sinuses and mastoids are clear. There are no w orrisome calvarial lesions. IMPRESSION: No evidence of acute intracranial abnormalities. Moderate diffuse brain atrophy, out of proportion for patient's age. There is bilateral frontal lobe predominant periventricular T2/FLAIR hyperintensity which may represe nt chronic small-vessel ischemic changes versus white matter disorder.
[2024-05-07] MEDS: CIPROFLOXACIN 400MG/200ML 200 ML IV SCH (22:30)
--- NOTE | 2024-05-07 23:22 | DVHPN2 ---
Progress Note - Dictate Date Seen: May 07, 2024 Medical Necessity Reason Pt with a Central, PICC or Fol: Yes The following are medically ne: Mcqueen Catheter Reason for mcqueen catheter: Strict I&O Subjective Mr. Sarath De Santiago is a 44 years old right-handed female with a history of dementia, the patient was admitted to the hospital on 05/04/2024 with a chief company of seizure-like activity. I have seen and examined the patient, I have discussed with her nurse, she was not doing any better, lying in bed, she tracks a little bit, but does not respond to verbal stimuli No seizure activity Urinalysis, 05/04/2024: WBC: 6, urine leukocyte esterase: 3+, urine nitrate: 2+ WBC/HB/PLT/MCV, 05/05/2024: 8.1/9.9/580/88.2 CMP, 05/04/2024: Unremarkable TG/HDL/LDL/HDL, : 68/144/67/61 Vitamin B12, 08/2023: 473 Folic acid, 08/2023: 13.12 TSH, 02/2024:1.75 CT head, 05/04/2024: 1. Generalized brain atrophy. 2. Small vessel ischemic/degenerative changes. 3. No acute intracranial hemorrhage, midline shift or mass effect. If symptoms persist, further evaluation with MRI is recommended MRI brain, 04/27/2024: No evidence of acute intracranial abnormalities. Moderate diffuse brain atrophy, out of proportion for patient's age. There is bilateral frontal lobe predominant periventricular T2/FLAIR hyperintensity which may represent chronic small-vessel ischemic changes versus white matter disorder vital signs Vital Sign Date Time Temp Pulse Resp B/P (MAP) Pulse Ox O2 Delivery O2 Flow Rate FiO2 05/07/24 21:00 98.5 131 17 79/45 (56) 87 98.5 05/07/24 08:00 Room Air* 0 21 Total Intake and Output 05/06/24 05/06/24 05/07/24 15:00 23:00 07:00 Intake Total 400 ml 175 ml Output Total 100 ml 100 ml Balance 300 ml 75 ml medications Current Medications Medications Dose Ordered Sig/Dannielle Route Start Time Stop Time Status Last Admin Dose Admin Ceftriaxone Sodium 50 ml @ 100 mls/hr DAILY@09 IV 05/05/24 09:00 05/07/24 09:51 100 MLS/HR Ondansetron HCl 4 mg Q4HP PRN IV 05/04/24 16:45 05/07/24 09:59 4 MG Alprazolam 0.25 mg TID PRN PO 05/04/24 16:45 05/05/24 21:34 0.25 MG Aspirin 81 mg DAILY PO 05/05/24 10:00 05/06/24 09:04 81 MG Mirtazapine 30 mg DAILY PO 05/05/24 10:00 05/07/24 10:04 30 MG Carbidopa/Levodopa 1 tab TID PO 05/05/24 14:00 05/06/24 14:00 1 TAB Multivitamins/ Minerals 1 tab DAILY PO 05/07/24 10:00 05/07/24 10:03 1 TAB Enteral Nutritional Formula 240 ml BIDWM PO 05/06/24 18:00 05/06/24 18:10 240 ML Enteral Nutritional Formula 27.5 gm BID PO 05/06/24 22:00 05/07/24 09:51 27.5 GM Levetiracetam 100 ml @ 400 mls/hr BID IV 05/06/24 22:00 05/07/24 21:57 400 MLS/HR Lorazepam 1 mg ONCE PRN IV 05/06/24 17:30 Lorazepam 1 mg Q5MINP PRN IV 05/06/24 17:30 Ciprofloxacin 200 ml @ 200 mls/hr Q12HR IV 05/07/24 22:00 05/07/24 22:30 200 MLS/HR Potassium Chloride/Dextrose/ Sod Cl 1,000 ml @ 75 mls/hr [id number] IV 05/07/24 12:15 05/07/24 13:35 75 MLS/HR objective General: the patient is well developed and poorly nourished. No acute distress. Pressure sore MENTAL STATUS: Awake, she was responsive to verbal stimuli, she tracks SPEECH, LANGUAGE, HIGHER CORTICAL FUNCTION: She can not vocalize CRANIAL NERVES: Pupils are equal, round and reactive. EOMs full and conjugate. Facial sensation intact in all three divisions bilaterally. Mandibular strength intact. Facial muscles symmetrical and strength intact. SENSATION: Sensation to touch and pinprick is ok MOTOR: Increased tone in the arms and legs, diffuse muscle atrophy. She does not move the arms and legs REFLEXES: Deep tendon reflexes are stronger in the left arm than leg. No pathological reflexes. CEREBELLAR/COORDINATION: Deferred GAIT/STATION: deferred laboratory and microbiology Laboratory Tests 05/06/24 13:04 05/05/24 06:15 Test 05/06/24 13:04 Range/Units Serum Glucose 120 H 74-106 mg/dL Problem List Episode of convulsion with loss of consciousness Likely new onset grand mal seizure Dementia Presenile Alzheimer's disease Increased muscle tone secondary to dementia Cachexia Pressure sore UTI Assessment/Plan Monitoring Supportive treatment Telemetry EEG Keppra 500 mg b.i.d. Ativan for seizure breakthrough Sinemet 25/100 t.i.d. for abnormal muscle tone IV antibiotics Wound care This medical document was created using an electronic medical record system with [employer] dictation system. Although this document has been carefully reviewed, there may still be some phonetic and typographical errors. These areas are purely typographical due to imperfections of the software programs, and do not reflect any compromise in the patient's medical care. Prognosis poor Dietary Evaluation Review Recommendations by RD: Protein Supplementation Comments: diet as tolerated for comfort. apple Sauce was taken today. Expected Outcomes/Goals: 1) appetite and labs to improve 2) wound to improve 3) f/u in 3-5 days Plan discussed with: Other FARZAD ALSTON MD May 07, 2024 23:22
[2024-05-08] VITALS (11 sets, daily range): BP systolic 76–98; BP diastolic 33–67; PULSE 48–148; RESP 14–18; TEMP 97.2–99.7; O2SAT 90–99
[2024-05-08] MEDS: SODIUM CHLORIDE 0.9% 1,000 ML IV ONE ×2 (04:45→21:50)
[2024-05-08 05:18] LABS: Basophils # (auto) 0 10 ^3/uL (0-0.2); Basophils % (auto) 0.1 % (0.0-2.0); Eosinophils # (auto) 0 10 ^3/uL (0-0.8); Hematocrit 38.5 % (36.0-46.0); Hemoglobin 12.1 g/dL (12.2-16.2); Lymphocytes # (auto) 0.8 10 ^3/uL (0.4-5.4); Lymphocytes % (auto) 5.3 % (10.0-50.0); Mean Corpuscular Hemoglobin 28.1 pg (28.0-32.0); Mean Corpuscular Hgb Conc. 31.4 g/dL (32.0-36.0); Mean Corpuscular Volume 89.6 fL (80.0-100.0); Monocytes % (auto) 6.2 % (0.0-12.0); Neutrophils # (auto) 13.4 10 ^3/uL (1.6-8.6); Neutrophils % (auto) 88.4 % (37.0-80.0); Nucleated Red Blood Cells % 0.1 %; Platelet Count (auto) 581 10^3/uL (140-450); Red Cell Distribution Width 15.4 % (11.8-14.3); White Blood Cell 15.2 10^3/uL (4.4-10.8)
[2024-05-08 05:33] LABS: Anion Gap 14 (5-15); Potassium 3.9 mmol/L (3.5-5.1)
[2024-05-08 05:39] LABS: BUN/Creatinine Ratio 28.5 (10.0-20.0)
[2024-05-08 05:58] LABS: Blood Urea Nitrogen 79 mg/dL (9-23); Calcium 11.4 mg/dL (8.7-10.4); Carbon Dioxide 34 mmol/L (20-31); Chloride 98 mmol/L (98-107); Glucose 185 mg/dL (74-106); Sodium 146 mmol/L (136-145)
[2024-05-08 06:10] LABS: Lactic Acid w/Reflex 4.1 mmol/L (0.4-2.0)
[2024-05-08] MEDS: SODIUM CHLORIDE 0.9% 500 ML IV ONE ×2 (07:00→14:01)
[2024-05-08] MEDS ORDERED: VANCOMYCIN PER PHARMACY 0 MG IV SCH (07:00)
[2024-05-08] MEDS: VANCOMYCIN 1GM/250ML KIT 250 ML IV ONE (09:00)
--- NOTE | 2024-05-08 11:39 | DVHPN2 ---
Progress Note Date Seen: May 08, 2024 Medical Necessity Reason Pt with a Central, PICC or Fol: Yes The following are medically ne: Mcqueen Catheter Reason for mcqueen catheter: Strict I&O Subjective Patient reports: No new complaints Review of Systems: HEENT:Normal, CVS:Normal, RESPIRATORY:Normal, GI:Normal, :Normal, MSK:Normal, NEURO:Normal Objective vital signs Vital Sign Date Time Temp Pulse Resp B/P (MAP) Pulse Ox O2 Delivery O2 Flow Rate FiO2 05/08/24 09:00 99.3 107 16 84/45 (58) 99 99.3 05/07/24 20:00 Nasal Cannula* 3 32 Total Intake and Output 05/07/24 05/07/24 05/08/24 15:00 23:00 07:00 Intake Total 350 ml 300 ml 1200 ml Output Total 125 ml 15 ml Balance 350 ml 175 ml 1185 ml medications Current Medications Medications Dose Ordered Sig/Dannielle Route Start Time Stop Time Status Last Admin Dose Admin Ceftriaxone Sodium 50 ml @ 100 mls/hr DAILY@09 IV 05/05/24 09:00 05/08/24 08:20 100 MLS/HR Ondansetron HCl 4 mg Q4HP PRN IV 05/04/24 16:45 05/07/24 09:59 4 MG Alprazolam 0.25 mg TID PRN PO 05/04/24 16:45 05/05/24 21:34 0.25 MG Aspirin 81 mg DAILY PO 05/05/24 10:00 05/06/24 09:04 81 MG Mirtazapine 30 mg DAILY PO 05/05/24 10:00 05/07/24 10:04 30 MG Carbidopa/Levodopa 1 tab TID PO 05/05/24 14:00 05/06/24 14:00 1 TAB Multivitamins/ Minerals 1 tab DAILY PO 05/07/24 10:00 05/07/24 10:03 1 TAB Enteral Nutritional Formula 240 ml BIDWM PO 05/06/24 18:00 05/08/24 08:19 240 ML Enteral Nutritional Formula 27.5 gm BID PO 05/06/24 22:00 05/07/24 09:51 27.5 GM Levetiracetam 100 ml @ 400 mls/hr BID IV 05/06/24 22:00 05/08/24 10:01 400 MLS/HR Lorazepam 1 mg ONCE PRN IV 05/06/24 17:30 Lorazepam 1 mg Q5MINP PRN IV 05/06/24 17:30 Ciprofloxacin 200 ml @ 200 mls/hr Q12HR IV 05/07/24 22:00 05/08/24 10:21 200 MLS/HR Potassium Chloride/Dextrose/ Sod Cl 1,000 ml @ 75 mls/hr [id number] IV 05/07/24 12:15 05/07/24 13:35 75 MLS/HR Vancomycin HCl 0 ml @ 0 mls/hr UD IV 05/08/24 07:00 UNV Examination: GENERAL:Normal, HEENT:Normal, NECK:Normal, LUNGS:Normal, CVS:Normal, ABDOMEN:Normal, MSK:Normal, SKIN:Normal, NEURO:Normal, NEURO:Abnormal (aloc), :Normal laboratory and microbiology Laboratory Tests 05/08/24 04:50 Test 05/08/24 04:50 Range/Units Serum Glucose 185 H 74-106 mg/dL Microbiology Date/Time Source Procedure Growth Status 05/07/24 12:40 Urine - [facility] [place] Urine Culture - Preliminary Resulted 05/05/24 05:08 Coccyx Gram Stain - Final Complete 05/05/24 05:08 Wound Culture - Final Staphylococcus aureus Complete Problem List/Assessment/Plan Problem List/Assessment/Plan * Decubitus ulcer with possible sepsis with s aureus: iv cipo, iv rocephin * uti: culture, iv antibiotics * Alzheimer's dementia of the Devan variant. * Severe malnutrition. * Anemia, * Functional quadriplegia. * new onset seizure: on keppra * acute renal failure ?vasomotor nephropathy: ivf advance care planning- full code- time spent 19 mins Plan discussed with: Patient My Orders My Orders Orders - TA KEANE MD Procedure Category Date Status Time Urine Bacterial BRENDA 05/07/24 In Process Culture 12:11 Ciprofloxacin PHA 05/07/24 In Process 400mg/200ml (Cipro Iv) 22:00 D5w/Sod Chl 0.45%/Kcl PHA 05/07/24 In Process 20meq 12:15 D5w/Sod Chl 0.45% 1/2 PHA 05/08/24 Transmitted NS 11:30 Basic Metabolic Panel LAB 05/09/24 Verified 06:00 Complete Blood Count LAB 05/09/24 Verified 06:00 Chest Portable XY 05/09/24 Verified 06:00 Dietary Evaluation Review Recommendations by RD: Protein Supplementation Comments: diet as tolerated for comfort. apple Sauce was taken today. Expected Outcomes/Goals: 1) appetite and labs to improve 2) wound to improve 3) f/u in 3-5 days Date of Service: May 08, 2024 Billing Provider: TA KEANE MD Common Visit Codes: [id number] INP/OBS CARE(HIGH) TA KEANE MD May 08, 2024 11:39
[2024-05-08] MEDS: D5W/SOD CHL 0.45% 1,000 ML IV SCH (14:44)
[2024-05-08] MEDS: ALBUMIN 5% 500 ML IV ONE (21:49)
[2024-05-09] VITALS (12 sets, daily range): BP systolic 84–105; BP diastolic 49–69; PULSE 98–141; RESP 14–46; TEMP 97.4–98.7; O2SAT 90–97
--- NOTE | 2024-05-09 05:54 | DVH ---
EXAM: XR Chest, 1 View CLINICAL INDICATION: aloc TECHNIQUE: Frontal view of the chest. COMPARISON: XY CHEST PORTABLE on DOS: 05/04/24, XY CHEST PORTABLE on DOS: 03/12/24, XY CHEST PORTABL E on DOS: 11/09/23, XY CHEST PORTABLE on DOS: 09/04/23, XY CHEST PORTABLE on DOS: 08/26/23 FINDINGS: LUNGS AND PLEURAL SPACES: Right basilar atelectasis or pneumonia. No pneumothorax. HEART: Unremarkable. No cardiomegaly. MEDIASTINUM: Unremarkable. Normal mediastinal contour. BONES/JOINTS: Unremarkable. No acute fracture. OTHER FINDINGS: . None. ... IMPRESSION: Right basilar atelectasis or pneumonia.
[2024-05-09 07:19] LABS: Basophils # (auto) 0 10 ^3/uL (0-0.2); Basophils % (auto) 0.1 % (0.0-2.0); Eosinophils # (auto) 0 10 ^3/uL (0-0.8); Eosinophils % (auto) 0.1 % (0.0-7.0); Hematocrit 32.2 % (36.0-46.0); Hemoglobin 10.3 g/dL (12.2-16.2); Lymphocytes # (auto) 0.5 10 ^3/uL (0.4-5.4); Lymphocytes % (auto) 7.4 % (10.0-50.0); Mean Corpuscular Hemoglobin 28.9 pg (28.0-32.0); Mean Corpuscular Volume 90.4 fL (80.0-100.0); Monocytes # (auto) 0.4 10 ^3/uL (0-1.3); Monocytes % (auto) 5.3 % (0.0-12.0); Neutrophils # (auto) 6.1 10 ^3/uL (1.6-8.6); Neutrophils % (auto) 87.1 % (37.0-80.0); Platelet Count (auto) 342 10^3/uL (140-450); Red Blood Cells 3.57 10^6/uL (4.0-5.20); Red Cell Distribution Width 15.2 % (11.8-14.3); White Blood Cell 7.1 10^3/uL (4.4-10.8)
[2024-05-09 07:41] LABS: Albumin 4.6 g/dL (3.2-4.8); Alkaline Phosphatase 66 U/L (46-116); Anion Gap 14 (5-15); BUN/Creatinine Ratio 54.2 (10.0-20.0); Bilirubin, Total 0.6 mg/dL (0.2-1.0); Calcium 10.3 mg/dL (8.7-10.4); Carbon Dioxide 29 mmol/L (20-31); Chloride 102 mmol/L (98-107); Total Protein 7.5 g/dL (5.7-8.2)
[2024-05-09 07:42] LABS: Alanine Aminotransferase 44 U/L (7-40); Aspartate Aminotransferase 55 U/L (13-40); Blood Urea Nitrogen 65 mg/dL (9-23); Glucose 167 mg/dL (74-106); Potassium 3.1 mmol/L (3.5-5.1); Sodium 145 mmol/L (136-145)
[2024-05-09 12:22] LABS: Lactic Acid w/Reflex 5.4 mmol/L (0.4-2.0)
[2024-05-09] MEDS ORDERED: CLINIMIX PER PHARMACY 0 ML IV SCH (12:30)
--- NOTE | 2024-05-09 12:31 | DVHPN2 ---
Progress Note Date Seen: May 09, 2024 Medical Necessity Reason Pt with a Central, PICC or Fol: Yes The following are medically ne: Mcqueen Catheter Reason for mcqueen catheter: Strict I&O Subjective Patient reports: No new complaints Review of Systems: HEENT:Normal, CVS:Normal, RESPIRATORY:Normal, GI:Normal, :Normal, MSK:Normal, NEURO:Normal Objective vital signs Vital Sign Date Time Temp Pulse Resp B/P (MAP) Pulse Ox O2 Delivery O2 Flow Rate FiO2 05/09/24 08:35 103 14 98/55 (69) 91 05/09/24 05:00 97.8 97.8 05/08/24 20:00 Nasal Cannula* 3 32 Total Intake and Output 05/08/24 05/08/24 05/09/24 15:00 23:00 07:00 Intake Total 600 ml 1200 ml 2300 ml Output Total 250 ml 400 ml Balance 600 ml 950 ml 1900 ml medications Current Medications Medications Dose Ordered Sig/Dannielle Route Start Time Stop Time Status Last Admin Dose Admin Ceftriaxone Sodium 50 ml @ 100 mls/hr DAILY@09 IV 05/05/24 09:00 05/09/24 08:16 100 MLS/HR Ondansetron HCl 4 mg Q4HP PRN IV 05/04/24 16:45 05/07/24 09:59 4 MG Alprazolam 0.25 mg TID PRN PO 05/04/24 16:45 05/05/24 21:34 0.25 MG Aspirin 81 mg DAILY PO 05/05/24 10:00 05/06/24 09:04 81 MG Mirtazapine 30 mg DAILY PO 05/05/24 10:00 05/07/24 10:04 30 MG Multivitamins/ Minerals 1 tab DAILY PO 05/07/24 10:00 05/07/24 10:03 1 TAB Enteral Nutritional Formula 240 ml BIDWM PO 05/06/24 18:00 05/08/24 08:19 240 ML Enteral Nutritional Formula 27.5 gm BID PO 05/06/24 22:00 05/07/24 09:51 27.5 GM Levetiracetam 100 ml @ 400 mls/hr BID IV 05/06/24 22:00 05/09/24 11:11 400 MLS/HR Lorazepam 1 mg ONCE PRN IV 05/06/24 17:30 Lorazepam 1 mg Q5MINP PRN IV 05/06/24 17:30 Ciprofloxacin 200 ml @ 200 mls/hr Q12HR IV 05/07/24 22:00 05/09/24 10:00 200 MLS/HR Vancomycin HCl 0 ml @ 0 mls/hr UD IV 05/08/24 07:00 Dextrose/Sodium Chloride 1,000 ml @ 100 mls/hr Q10H IV 05/08/24 11:30 05/09/24 01:55 100 MLS/HR Examination: GENERAL:Normal, HEENT:Normal, NECK:Normal, LUNGS:Normal, CVS:Normal, ABDOMEN:Normal, MSK:Normal, SKIN:Normal, NEURO:Normal, :Normal laboratory and microbiology Laboratory Tests 05/09/24 06:42 Test 05/09/24 06:42 Range/Units Serum Glucose 167 H 74-106 mg/dL Microbiology Date/Time Source Procedure Growth Status 05/08/24 04:50 Blood Blood Culture - Preliminary NO GROWTH AFTER 24 HOURS OF INCUBATION. Resulted 05/07/24 12:40 Urine - [facility] [place] Urine Culture - Preliminary Resulted 05/05/24 05:08 Coccyx Gram Stain - Final Complete 05/05/24 05:08 Wound Culture - Final Staphylococcus aureus Complete Problem List/Assessment/Plan Problem List/Assessment/Plan * Decubitus ulcer with possible sepsis with s aureus: iv cipo, iv vanc * uti: culture, iv antibiotics * Alzheimer's dementia of the Devan variant. * Severe malnutrition. * Anemia, * Functional quadriplegia. * new onset seizure: on keppra * acute renal failure ?vasomotor nephropathy: ivf * likely aspiration pneumonia: iv antibiotics long dw mother- explained poor prognosis advance care planning- full code- time spent 19 mins Plan discussed with: Patient Dietary Evaluation Review Recommendations by RD: Protein Supplementation Comments: diet as tolerated for comfort. apple Sauce was taken today. Expected Outcomes/Goals: 1) appetite and labs to improve 2) wound to improve 3) f/u in 3-5 days Date of Service: May 09, 2024 Billing Provider: TA KEANE MD Common Visit Codes: [id number] INP/OBS CARE(HIGH) TA KEANE MD May 09, 2024 12:31
[2024-05-09] MEDS: D5W/SOD CHL 0.45% 1,000 ML IV SCH (14:20)
[2024-05-09 15:03] LABS: Magnesium 2.6 mg/dL (1.6-2.6)
[2024-05-09 15:04] LABS: Phosphorus 2.9 mg/dL (2.4-5.1)
[2024-05-09] MEDS: VANCOMYCIN 500mg/100mL 100 ML IV SCH (16:43)
[2024-05-09] MEDS: POTASSIUM CHLORIDE 40 MEQ, LIDOCAINE 1% (LOCAL ANESTH.) 4 ML in SODIUM CHL 0.9% 250 ML IV ONE (17:18)
[2024-05-09] MEDS: SODIUM CHLORIDE 0.9% 500 ML IV ONE (21:30)
[2024-05-09] MEDS: AMINO ACID INFUSION IN D10W 1,000 ML IV SCH (22:34)
--- NOTE | 2024-05-09 23:21 | DVHPN2 ---
Progress Note - Dictate Date Seen: May 09, 2024 Medical Necessity Reason Pt with a Central, PICC or Fol: Yes The following are medically ne: Mcqueen Catheter Reason for mcqueen catheter: Strict I&O Subjective Mr. Sarath De Santiago is a 44 years old right-handed female with a history of dementia, the patient was admitted to the hospital on 05/04/2024 with a chief company of seizure-like activity. I have seen and examined the patient, I have discussed with her nurse, she was doing better today, more reactive, she tracks, she responds to verbal stimuli, she does not talk or move the extremities No seizure activity Urinalysis, 05/04/2024: WBC: 6, urine leukocyte esterase: 3+, urine nitrate: 2+ WBC/HB/PLT/MCV, 05/05/2024: 8.1/9.9/580/88.2 CMP, 05/04/2024: Unremarkable TG/HDL/LDL/HDL, : 68/144/67/61 Vitamin B12, 08/2023: 473 Folic acid, 08/2023: 13.12 TSH, 02/2024:1.75 CT head, 05/04/2024: 1. Generalized brain atrophy. 2. Small vessel ischemic/degenerative changes. 3. No acute intracranial hemorrhage, midline shift or mass effect. If symptoms persist, further evaluation with MRI is recommended MRI brain, 04/27/2024: No evidence of acute intracranial abnormalities. Moderate diffuse brain atrophy, out of proportion for patient's age. There is bilateral frontal lobe predominant periventricular T2/FLAIR hyperintensity which may represent chronic small-vessel ischemic changes versus white matter disorder vital signs Vital Sign Date Time Temp Pulse Resp B/P (MAP) Pulse Ox O2 Delivery O2 Flow Rate FiO2 05/09/24 21:00 98.3 130 42 105/69 (81) 96 98.3 05/09/24 08:16 Nasal Cannula* 3 32 Total Intake and Output 05/08/24 05/08/24 05/09/24 15:00 23:00 07:00 Intake Total 600 ml 1200 ml 2300 ml Output Total 250 ml 400 ml Balance 600 ml 950 ml 1900 ml medications Current Medications Medications Dose Ordered Sig/Dannielle Route Start Time Stop Time Status Last Admin Dose Admin Ondansetron HCl 4 mg Q4HP PRN IV 05/04/24 16:45 05/07/24 09:59 4 MG Alprazolam 0.25 mg TID PRN PO 05/04/24 16:45 05/05/24 21:34 0.25 MG Aspirin 81 mg DAILY PO 05/05/24 10:00 05/06/24 09:04 81 MG Mirtazapine 30 mg DAILY PO 05/05/24 10:00 05/07/24 10:04 30 MG Multivitamins/ Minerals 1 tab DAILY PO 05/07/24 10:00 05/07/24 10:03 1 TAB Enteral Nutritional Formula 240 ml BIDWM PO 05/06/24 18:00 05/08/24 08:19 240 ML Enteral Nutritional Formula 27.5 gm BID PO 05/06/24 22:00 05/07/24 09:51 27.5 GM Levetiracetam 100 ml @ 400 mls/hr BID IV 05/06/24 22:00 05/09/24 21:25 400 MLS/HR Lorazepam 1 mg ONCE PRN IV 05/06/24 17:30 Lorazepam 1 mg Q5MINP PRN IV 05/06/24 17:30 Ciprofloxacin 200 ml @ 200 mls/hr Q12HR IV 05/07/24 22:00 05/09/24 21:26 200 MLS/HR Vancomycin HCl 0 ml @ 0 mls/hr UD IV 05/08/24 07:00 Dextrose/Sodium Chloride 1,000 ml @ 75 mls/hr [id number] IV 05/09/24 12:30 05/09/24 14:20 75 MLS/HR Amino Acids 0 ml @ 0 mls/hr PER PHARMACY IV 05/09/24 12:30 Amino Acids/ Electrolytes/ Dextrose 1,000 ml @ 41 mls/hr DAILY@2200 IV 05/09/24 22:00 05/09/24 22:34 41 MLS/HR Diagnostic Test (Pha) 1 strip Q6HR 05/10/24 00:00 Insulin Human Regular FOLLOW SLIDING SCALE Q6HR SC 05/10/24 00:00 Dextrose 50 ml UD IV 05/10/24 00:00 Vancomycin HCl 100 ml @ 200 mls/hr Q15H IV 05/09/24 15:00 05/09/24 16:43 200 MLS/HR objective General: the patient is well developed and poorly nourished. No acute distress. Pressure sore MENTAL STATUS: Awake, she was responsive to verbal stimuli, she tracks SPEECH, LANGUAGE, HIGHER CORTICAL FUNCTION: She can not vocalize CRANIAL NERVES: Pupils are equal, round and reactive. EOMs full and conjugate. Facial sensation intact in all three divisions bilaterally. Mandibular strength intact. Facial muscles symmetrical and strength intact. SENSATION: Sensation to touch and pinprick is ok MOTOR: Increased tone in the arms and legs, diffuse muscle atrophy. She does not move the arms and legs REFLEXES: Deep tendon reflexes are stronger in the left arm than leg. No pathological reflexes. CEREBELLAR/COORDINATION: Deferred GAIT/STATION: deferred laboratory and microbiology Laboratory Tests 05/09/24 06:42 Test 05/09/24 06:42 Range/Units Serum Glucose 167 H 74-106 mg/dL Problem List Episode of convulsion with loss of consciousness Likely new onset grand mal seizure Dementia Presenile Alzheimer's disease Increased muscle tone secondary to dementia Cachexia Pressure sore UTI Assessment/Plan Monitoring Supportive treatment Telemetry EEG Keppra 500 mg b.i.d. Ativan for seizure breakthrough Sinemet 25/100 t.i.d. for abnormal muscle tone IV antibiotics Wound care This medical document was created using an electronic medical record system with [employer] computerized dictation system. Although this document has been carefully reviewed, there may still be some phonetic and typographical errors. These areas are purely typographical due to imperfections of the software programs, and do not reflect any compromise in the patient's medical care. Prognosis poor Dietary Evaluation Review Recommendations by RD: Protein Supplementation Comments: diet as tolerated for comfort. apple Sauce was taken today. Expected Outcomes/Goals: 1) appetite and labs to improve 2) wound to improve 3) f/u in 3-5 days Plan discussed with: Other FARZAD ALSTON MD May 09, 2024 23:21
[2024-05-09] MEDS: ACCU-CHEK COMFORT CURVE STRIP VI SCH (23:43)
[2024-05-09] MEDS: InsuLIN REG 1unit/0.01ml Soln (100units/ml) SC SCH (23:43)
[2024-05-10] VITALS (10 sets, daily range): BP systolic 83–100; BP diastolic 51–74; PULSE 81–138; RESP 14–83; TEMP 97.8–99; O2SAT 91–97
[2024-05-10] MEDS ORDERED: DEXTROSE (50%) 50ML SYRG IV SCH
[2024-05-10] MEDS: SODIUM CHLORIDE 0.9% 500 ML IV ONE (01:58)
[2024-05-10 06:32] LABS: Basophils # (auto) 0 10 ^3/uL (0-0.2); Basophils % (auto) 0.1 % (0.0-2.0); Eosinophils # (auto) 0 10 ^3/uL (0-0.8); Eosinophils % (auto) 0.2 % (0.0-7.0); Hematocrit 28.2 % (36.0-46.0); Hemoglobin 8.9 g/dL (12.2-16.2); Lymphocytes # (auto) 0.5 10 ^3/uL (0.4-5.4); Lymphocytes % (auto) 5.5 % (10.0-50.0); Mean Corpuscular Hemoglobin 28.5 pg (28.0-32.0); Mean Corpuscular Hgb Conc. 31.7 g/dL (32.0-36.0); Mean Corpuscular Volume 89.9 fL (80.0-100.0); Monocytes # (auto) 0.5 10 ^3/uL (0-1.3); Monocytes % (auto) 5.2 % (0.0-12.0); Neutrophils # (auto) 7.8 10 ^3/uL (1.6-8.6); Nucleated Red Blood Cells % 0.2 %; Platelet Count (auto) 268 10^3/uL (140-450); Red Blood Cells 3.13 10^6/uL (4.0-5.20); Red Cell Distribution Width 15.4 % (11.8-14.3); White Blood Cell 8.7 10^3/uL (4.4-10.8)
[2024-05-10 06:51] LABS: Calcium 9.8 mg/dL (8.7-10.4)
[2024-05-10 06:55] LABS: BUN/Creatinine Ratio 54.3 (10.0-20.0)
[2024-05-10 06:56] LABS: Magnesium 2.5 mg/dL (1.6-2.6)
[2024-05-10 06:58] LABS: Phosphorus 1.5 mg/dL (2.4-5.1); Potassium 3.3 mmol/L (3.5-5.1)
--- NOTE | 2024-05-10 09:38 | DVH ---
EXAM: XY CHEST PORTABLE Indication: pain, R/O FLUID OVERLOAD Technique: Single frontal view of the chest was obtained Comparison: XY CHEST PORTABLE on DOS: 05/09/24, XY CHEST PORTABLE on DOS: 05/04/24, XY CHEST PORTABLE o n DOS: 03/12/24, XY CHEST PORTABLE on DOS: 11/09/23, XY CHEST PORTABLE on DOS: 09/04/23 FINDINGS: Lines and Tubes: None Lungs: Bibasilar opacities. Pleura: No effusion. No pneumothorax. Cardiomediastinal contours: Unremarkable Bones: No acute osseous abnormality. IMPRESSION: Bibasilar opacities appear worsened compared to prior exam which may reflect worsening pulmonary vasc ular congestion.
[2024-05-10] MEDS: FUROSEMIDE 20 MG/2 ML VIAL IV ONE (10:52)
[2024-05-10] MEDS: POTASSIUM PHOSPHATE 22 MEQ in SODIUM CHL 0.9% 100 ML IV ONE (14:45)
--- NOTE | 2024-05-10 15:07 | DVHPN2 ---
Progress Note Date Seen: May 10, 2024 Medical Necessity Reason Pt with a Central, PICC or Fol: Yes The following are medically ne: Mcqueen Catheter Reason for mcqueen catheter: Strict I&O Subjective Patient reports: No new complaints Review of Systems: HEENT:Normal, CVS:Normal, RESPIRATORY:Normal, GI:Normal, :Normal, MSK:Normal, NEURO:Normal Objective vital signs Vital Sign Date Time Temp Pulse Resp B/P (MAP) Pulse Ox O2 Delivery O2 Flow Rate FiO2 05/10/24 13:00 98.1 120 83 96/62 (73) 91 98.1 05/10/24 08:00 Nasal Cannula* 3 32 Total Intake and Output 05/09/24 05/09/24 05/10/24 15:00 23:00 07:00 Intake Total 250 ml 1074 ml 0 ml Output Total 400 ml 0 ml Balance 250 ml 674 ml 0 ml medications Current Medications Medications Dose Ordered Sig/Dannielle Route Start Time Stop Time Status Last Admin Dose Admin Ondansetron HCl 4 mg Q4HP PRN IV 05/04/24 16:45 05/07/24 09:59 4 MG Alprazolam 0.25 mg TID PRN PO 05/04/24 16:45 05/05/24 21:34 0.25 MG Aspirin 81 mg DAILY PO 05/05/24 10:00 05/06/24 09:04 81 MG Mirtazapine 30 mg DAILY PO 05/05/24 10:00 05/07/24 10:04 30 MG Multivitamins/ Minerals 1 tab DAILY PO 05/07/24 10:00 05/07/24 10:03 1 TAB Enteral Nutritional Formula 240 ml BIDWM PO 05/06/24 18:00 05/08/24 08:19 240 ML Enteral Nutritional Formula 27.5 gm BID PO 05/06/24 22:00 05/07/24 09:51 27.5 GM Levetiracetam 100 ml @ 400 mls/hr BID IV 05/06/24 22:00 05/10/24 09:20 400 MLS/HR Lorazepam 1 mg ONCE PRN IV 05/06/24 17:30 Lorazepam 1 mg Q5MINP PRN IV 05/06/24 17:30 Ciprofloxacin 200 ml @ 200 mls/hr Q12HR IV 05/07/24 22:00 05/10/24 09:55 200 MLS/HR Vancomycin HCl 0 ml @ 0 mls/hr UD IV 05/08/24 07:00 Amino Acids 0 ml @ 0 mls/hr PER PHARMACY IV 05/09/24 12:30 Amino Acids/ Electrolytes/ Dextrose 1,000 ml @ 41 mls/hr DAILY@2200 IV 05/09/24 22:00 05/09/24 22:34 41 MLS/HR Diagnostic Test (Pha) 1 strip Q6HR 05/10/24 00:00 05/10/24 11:50 1 STRIP Insulin Human Regular FOLLOW SLIDING SCALE Q6HR SC 05/10/24 00:00 05/10/24 06:33 4 UNITS Dextrose 50 ml UD IV 05/10/24 00:00 Vancomycin HCl 100 ml @ 200 mls/hr Q15H IV 05/09/24 15:00 05/10/24 07:07 200 MLS/HR Examination: GENERAL:Normal, HEENT:Normal, NECK:Normal, LUNGS:Normal, CVS:Normal, ABDOMEN:Normal, MSK:Normal, SKIN:Normal, NEURO:Normal, NEURO:Abnormal (encephalopathy), :Normal laboratory and microbiology Laboratory Tests 05/10/24 06:07 Test 05/10/24 06:07 Range/Units Serum Glucose 167 H 74-106 mg/dL Microbiology Date/Time Source Procedure Growth Status 05/08/24 04:50 Blood Blood Culture - Preliminary NO GROWTH AFTER 48 HOURS OF INCUBATION. Resulted 05/07/24 12:40 Urine - Mcqueen Port Urine Culture - Final Complete 05/05/24 05:08 Coccyx Gram Stain - Final Complete 05/05/24 05:08 Wound Culture - Final Staphylococcus aureus Complete Problem List/Assessment/Plan Problem List/Assessment/Plan * Decubitus ulcer with possible sepsis with s aureus: iv cipo, iv vanc * uti: culture, iv antibiotics * Alzheimer's dementia of the Devan variant. * Severe malnutrition. * Anemia, * Functional quadriplegia. * new onset seizure: on keppra * acute renal failure ?vasomotor nephropathy: ivf * likely aspiration pneumonia: iv antibiotics * fluid overload: s/p iv lasix long dw mother- explained poor prognosis advance care planning- full code- time spent 19 mins Plan discussed with: Patient My Orders My Orders Orders - TA KEANE MD Procedure Category Date Status Time Clinimix Per Pharmacy [facility] 05/09/24 In Process 22:00 Tap Water Enema ORDERS 05/09/24 Transmitted 17:58 Chest Portable XY 05/10/24 Resulted 08:12 Potassium Phosphate PHA 05/10/24 In Process 14:45 Renal Function Test LAB 05/11/24 Verified 04:00 Magnesium LAB 05/11/24 Verified 04:00 Clinimix Per Pharmacy [facility] 05/10/24 In Process 22:00 Dietary Evaluation Review Recommendations by RD: Protein Supplementation Comments: diet as tolerated for comfort. apple Sauce was taken today. Expected Outcomes/Goals: 1) appetite and labs to improve 2) wound to improve 3) f/u in 3-5 days Date of Service: May 10, 2024 Billing Provider: TA KEANE MD Common Visit Codes: [id number] INP/OBS CARE(HIGH) TA KEANE MD May 10, 2024 15:07
[2024-05-10] MEDS: POTASSIUM CHLORIDE 40 MEQ, LIDOCAINE 1% (LOCAL ANESTH.) 4 ML in SODIUM CHL 0.9% 250 ML IV ONE (18:17)
[2024-05-11] VITALS (75 sets, daily range): BP systolic -11–173; BP diastolic -22–124; PULSE 65–154; RESP 16–45; TEMP 97.5–101.9; O2SAT 47–100
[2024-05-11 05:27] LABS: Basophils # (auto) 0 10 ^3/uL (0-0.2); Basophils % (auto) 0.1 % (0.0-2.0); Eosinophils # (auto) 0 10 ^3/uL (0-0.8); Eosinophils % (auto) 0.1 % (0.0-7.0); Hematocrit 28.2 % (36.0-46.0); Lymphocytes # (auto) 0.5 10 ^3/uL (0.4-5.4); Lymphocytes % (auto) 5.4 % (10.0-50.0); Mean Corpuscular Hemoglobin 28.7 pg (28.0-32.0); Mean Corpuscular Hgb Conc. 32.1 g/dL (32.0-36.0); Mean Corpuscular Volume 89.6 fL (80.0-100.0); Monocytes # (auto) 0.9 10 ^3/uL (0-1.3); Monocytes % (auto) 10.6 % (0.0-12.0); Neutrophils # (auto) 7.1 10 ^3/uL (1.6-8.6); Neutrophils % (auto) 83.8 % (37.0-80.0); Platelet Count (auto) 235 10^3/uL (140-450); Red Blood Cells 3.14 10^6/uL (4.0-5.20); Red Cell Distribution Width 15.1 % (11.8-14.3); White Blood Cell 8.5 10^3/uL (4.4-10.8)
[2024-05-11 05:53] LABS: Calcium 10.2 mg/dL (8.7-10.4)
[2024-05-11 05:58] LABS: BUN/Creatinine Ratio 66.3 (10.0-20.0)
[2024-05-11 05:59] LABS: Magnesium 2.6 mg/dL (1.6-2.6)
[2024-05-11 06:00] LABS: Albumin 4.2 g/dL (3.2-4.8)
[2024-05-11 06:01] LABS: Phosphorus 2.4 mg/dL (2.4-5.1)
[2024-05-11] MEDS: NOREPINEPHRINE 8 MG/250ML KIT 250 ML IV ONE (09:33)
[2024-05-11] MEDS: ACETAMINOPHEN 650 MG RECT SUPP PR ONE (09:54)
[2024-05-11] MEDS ORDERED: VANCOMYCIN 500mg/100mL PREMIX or KIT IV SCH (10:00)
[2024-05-11] MEDS: SODIUM CHLORIDE 0.9% 1,000 ML IV ONE ×2 (10:15→11:00)
--- NOTE | 2024-05-11 10:37 | RESUS ---
CODE ASSIST ASSESSSMENT Initial Information Code Assist Date: May 11, 2024 Code Assist Time: 09:05 [facility] of Arrest[facility] Room [facility] 279A Provider Name DR JOCELIN TOMAS Time Notified: 09:05 (CAME TO BEDSIDE ) Crash Cart Opened and Supplies: No Situation Staff concerned/worried, speci: HR >130, SaO2 <90, SBP <90 or 10 from baseli, Change UO <50mL/4hrs Situation comment: PRIMARY RN CALLED CODE ASSIST FOR HR 150'S Background Background: SEE EMR Assessment Temperature (Fahrenheit): 100.7 Blood Pressure Systolic: 77 Blood Pressure Diastolic: 31 Respiratory Rate: 24 O2 Sat by Pulse Oximetry: 92 Bedside Blood Glucose: 154 Assessment comment: DIAPHORETIC, EYES OPEN AND RESPONDS TO VOICE BY TURNING HEAD AND EYE CONTACT BUT UNABLE TO VERBALIZE-BASELINE NEURO STATUS PER RN. Recommendations/Interventions Medications and Responses : Medication Time: 09:10 Route of Administration: IV Medication Comment: 1 LITER NS BOLUS AND WILL START LEVOPHED PER DR ORDER NEEDED FOR LOW MAP WITH BIOENGINEER RESOURCE TAKING OVER CARE, PENDING BED IN [facility]/ICU. OBTAINED TYLENOL ORDER FOR FEVER. Heart Rate: 150 Procedures: Accu check, EKG, O2 Mask/NC (INCREASED TO 3 LPM O2 VIA NC) Other Interventions FLUSHED ZAMARRIPA CATHETER DUE TO SEDIMENT IN ZAMARRIPA TUBING, PRIMARY RN SHAUNNA AND DR REAL CALLED FAMILY REGARDING CODE STATUS, PER FAMILY PATIENT IS TO BE MODIFIED CODE-NO COMPRESSIONS. Outcome Outcome: Transfer to Stepdown Follow up Report Follow up Report HR DOWN TO 130'S 5 MINS AFTER START OF IV FLUIDS. PRIOR TO COMPLETION OF 1 LITER NS BOLUS PER ICU RESOURCE CHARLIE DEE SBP INCREASED TO 90'S. Team Members Team Members Dr Real, Dr Delgado, Hima Hargrove RNfurnace stock inspector, Olivia Mcclure ICU Charge, García Sifuentes templer head, Rahat Henderson RN, Shaunna GUERRA primary, Ty RN, Hima Gray May 11, 2024 10:37
[2024-05-11 11:03] LABS: Base Excess -3.2 mmol/L (-2.0-3.0)
[2024-05-11] MEDS: ACETAMINOPHEN 650 MG RECT SUPP PR PRN (11:05)
--- NOTE | 2024-05-11 12:19 | DVH ---
EXAM: XY CHEST XRAY 1 VIEW Indication: SOB Technique: Single frontal view of the chest was obtained Comparison: XY CHEST PORTABLE on DOS: 05/10/24, XY CHEST PORTABLE on DOS: 05/09/24, XY CHEST PORTABLE o n DOS: 05/04/24, XY CHEST PORTABLE on DOS: 03/12/24, XY CHEST PORTABLE on DOS: 11/09/23 FINDINGS: Lines and Tubes: None Lungs: No focal consolidation. Low lung volumes. Pleura: No effusion. No pneumothorax. Cardiomediastinal contours: Unremarkable Bones: No acute osseous abnormality. IMPRESSION: No acute cardiopulmonary disease.
--- NOTE | 2024-05-11 12:20 | DVH ---
Date: 05/11/2024 11:33 AM Examination: XY ABDOMEN 2 VIEW History: Abdominal distension Comparison: 05/06/24 TECHNIQUE: Frontal views of the abdomen was obtained. FINDINGS: Significant gaseous distention of the stomach. Moderate stool burden. Surgical drain projects over th e right upper quadrant. The lung bases are unremarkable. No acute osseous abnormality identified. IMPRESSION: Significant gaseous distention of the stomach. Nonobstructive bowel gas pattern with moderate stool burden.
[2024-05-11 12:23] LABS: Alanine Aminotransferase 52 U/L (7-40); Albumin 3.7 g/dL (3.2-4.8); Alkaline Phosphatase 165 U/L (46-116); Anion Gap 12 (5-15); Aspartate Aminotransferase 73 U/L (13-40); BUN/Creatinine Ratio 63.6 (10.0-20.0); Blood Urea Nitrogen 63 mg/dL (9-23); Calcium 9.2 mg/dL (8.7-10.4); Carbon Dioxide 21 mmol/L (20-31); Chloride 111 mmol/L (98-107); Glucose 117 mg/dL (74-106); Magnesium 2.4 mg/dL (1.6-2.6); Phosphorus 2.6 mg/dL (2.4-5.1); Potassium 3.4 mmol/L (3.5-5.1); Sodium 144 mmol/L (136-145)
[2024-05-11 12:24] LABS: Bilirubin, Total 0.9 mg/dL (0.2-1.0); Total Protein 6.4 g/dL (5.7-8.2)
[2024-05-11 12:30] LABS: Lactic Acid w/Reflex 4.1 mmol/L (0.4-2.0)
--- NOTE | 2024-05-11 13:51 | ECG ---
[facility] Test Date: 2024-05-11 Test Time: 09:00:50 Pat Name: TOBIAS Ruthpartment: Room: 0262 Gender: F Splash Line Operator: Jarad GUERRA : 1980 Requested By: TANA KEANE Order Number: [id number] Reading MD: Enrrique Roberto Measurements Intervals [place] Rate: 151 P: 48 FL: 106 QRS: 36 QRSD: 72 T: 84 QT: 359 QTc: 570 Interpretive Statements Sinus tachycardia Low voltage, extremity leads Abnormal R-wave progression, late transition Nonspecific repol abnormality, lateral leads Prolonged QT interval Electronically Signed On 05-15-2024 21:25:28 PST by Enrrique Roberto Please click the below link to view image of tracing.
[2024-05-11] MEDS: NOREPINEPHRINE 8 MG/250ML KIT 250 ML IV SCH (14:30)
[2024-05-11] MEDS: POTASSIUM CHL 20MEQ/100ML 100 ML IV SCH (15:33)
[2024-05-11] MEDS: POLYETHYLENE GLYCOL 17 GM PWDR PO PRN (15:35)
--- NOTE | 2024-05-11 19:44 | DVHPN2 ---
Subjective very cachectic looking, non verbal Reviewed: Care Plan, Labs, Medications, Previous Orders, Radiology Changes from previous H/P or p: No Changes General: Per HPI Objective Vitals Vital Signs Date Time Temp Pulse Resp B/P (MAP) Pulse Ox O2 Delivery O2 Flow Rate FiO2 05/11/24 19:30 109 26 100/65 (77) 97 05/11/24 18:00 99.5 99.5 05/11/24 08:00 Nasal Cannula* 3 32 Intake/Output Intake and Output 05/11/24 07:00 Intake Total 1770 ml Output Total 1100 ml Balance 670 ml Intake Oral 0 ml IV Total 1770 ml Output Urine Total 1100 ml General Appearance: Alert, Other (very cachectic and malnourished, protuding eyes and sick looking) Psych/Mental Status: Other (nonverbal) Medications Current Medications Medications Dose Ordered Sig/Dannielle Route Start Time Stop Time Status Last Admin Dose Admin Ondansetron HCl 4 mg Q4HP PRN IV 05/04/24 16:45 05/07/24 09:59 4 MG Alprazolam 0.25 mg TID PRN PO 05/04/24 16:45 05/05/24 21:34 0.25 MG Aspirin 81 mg DAILY PO 05/05/24 10:00 05/06/24 09:04 81 MG Enteral Nutritional Formula 240 ml BIDWM PO 05/06/24 18:00 05/08/24 08:19 240 ML Enteral Nutritional Formula 27.5 gm BID PO 05/06/24 22:00 05/07/24 09:51 27.5 GM Levetiracetam 100 ml @ 400 mls/hr BID IV 05/06/24 22:00 05/11/24 10:00 400 MLS/HR Lorazepam 1 mg ONCE PRN IV 05/06/24 17:30 Lorazepam 1 mg Q5MINP PRN IV 05/06/24 17:30 Ciprofloxacin 200 ml @ 200 mls/hr Q12HR IV 05/07/24 22:00 05/11/24 10:00 200 MLS/HR Vancomycin HCl 0 ml @ 0 mls/hr UD IV 05/08/24 07:00 Amino Acids 0 ml @ 0 mls/hr PER PHARMACY IV 05/09/24 12:30 Amino Acids/ Electrolytes/ Dextrose 1,000 ml @ 41 mls/hr DAILY@2200 IV 05/09/24 22:00 05/10/24 21:22 41 MLS/HR Diagnostic Test (Pha) 1 strip Q6HR 05/10/24 00:00 05/11/24 18:00 1 STRIP Insulin Human Regular FOLLOW SLIDING SCALE Q6HR SC 05/10/24 00:00 05/11/24 00:11 2 UNITS Dextrose 50 ml UD IV 05/10/24 00:00 Vancomycin HCl 100 ml @ 200 mls/hr Q15H IV 05/09/24 15:00 05/11/24 13:26 200 MLS/HR Vancomycin HCl 100 ml @ 200 mls/hr Q12H IV 05/11/24 10:00 Cancel Acetaminophen 650 mg Q6HP PRN GA 05/11/24 10:00 05/11/24 11:05 650 MG Polyethylene Glycol 17 gm DAILYPRN PRN PO 05/11/24 11:00 05/11/24 15:35 17 GM Docusate Sodium 100 mg BID PO 05/11/24 22:00 Norepinephrine Bitartrate 250 ml @ 3.75 mls/hr Q24H IV 05/11/24 14:30 05/11/24 14:30 3.75 MLS/HR Potassium Chloride 100 ml @ 50 mls/hr Q2H IV 05/11/24 14:30 05/11/24 22:29 05/11/24 15:33 50 MLS/HR Laboratory Results Laboratory Tests 05/11/24 11:34 Chemistry Test 05/11/24 03:33 05/11/24 11:34 Albumin 4.2 g/dL (3.2-4.8) 3.7 g/dL (3.2-4.8) Calcium Level 10.2 mg/dL (8.7-10.4) 9.2 mg/dL (8.7-10.4) Magnesium Level 2.6 mg/dL (1.6-2.6) 2.4 mg/dL (1.6-2.6) Phosphorus Level 2.4 mg/dL (2.4-5.1) 2.6 mg/dL (2.4-5.1) Total Protein 6.4 g/dL (5.7-8.2) Coagulation Test 05/11/24 11:34 Prothrombin Time Pending Prothrombin Time INR Pending Activated Partial Thromboplast Time Pending LFT Test 05/11/24 11:34 Alanine Aminotransferase (ALT) 52 U/L (7-40) H Alkaline Phosphatase 165 U/L (46-116) H Aspartate Amino Transferase (AST) 73 U/L (13-40) H Total Bilirubin 0.9 mg/dL (0.2-1.0) Urinalysis Test 05/04/24 10:22 Urine Color Light-brown (Yellow) Urine Clarity Ex.turbid (Clear) Urine pH 6.5 (5.0-9.0) Urine Specific [place] 1.016 (1.001-1.035) Urine Protein Trace (Negative) H Urine Ketones Negative (Negative) Urine Blood Trace /uL (Negative) H Urine Nitrite 2+ (Negative) H Urine Bilirubin Negative (Negative) Urine Urobilinogen Normal mg/dL (Negative) Urine Leukocyte Esterase 3+ /uL (Negative) Urine RBC 6 /hpf (0 - 4) Urine WBC Clumps Present /hpf (None Seen) Urine Microscopic WBC 121 /HPF (0-5) H Urine Squamous Epithelial Cells None seen /hpf (<5) Urine Uric Acid Crystals Few /hpf (None Seen) Urine Bacteria Many /hpf (None Seen) H Urine Mucus Few (None Seen) Urine Glucose Normal mg/dL (Normal) Urine Test Negative (Negative) Blood Gas Results Test 05/11/24 10:54 Arterial Blood pH 7.481 (7.350-7.450) FiO2 % 32.0 Microbiology Microbiology Date/Time Source Procedure Growth Status 05/08/24 04:50 Blood Blood Culture - Preliminary NO GROWTH AFTER 72 HOURS OF INCUBATION. Resulted 05/07/24 12:40 Urine - Pan Port Urine Culture - Final Complete 05/05/24 05:08 Coccyx Gram Stain - Final Complete 05/05/24 05:08 Wound Culture - Final Staphylococcus aureus Complete Assessment/Plan Assessment/Plan #[place]iv[place] syndrome distented NGT placed #Septic shock Tachycardic and hypotensive despite 2Lbolus Blood cx IV abx Levophed to keep MAP >65 Transferred to ICU * Decubitus ulcer with possible sepsis with s aureus: iv cipo, iv vanc * uti: culture, iv antibiotics * Alzheimer's dementia of the Devan variant. * Severe malnutrition. * Anemia, * Functional quadriplegia. * new onset seizure: on keppra * acute renal failure ?vasomotor nephropathy: ivf * likely aspiration pneumonia: iv antibiotics * fluid overload: s/p iv lasix long dw mother- explained poor prognosis advance care planning- full code- time spent 19 mins Critical care time spent was 50 minutes Plan discussed with: Spouse, Other My Orders Orders - AMERICA VAUGHN MD Procedure Category Date Status Time Polyethylene Glycol PHA 05/11/24 In Process 17g Powder (Miralax 11:00 Docusate Sodium PHA 05/11/24 In Process Capsule (Colace 22:00 * Swallow Request ST 05/11/24 Transmitted 10:58 Transfer Orders XFER 05/11/24 Transmitted 14:25 Norepinephrine 8 PHA 05/11/24 In Process Mg/250ml Kit 14:30 Potassium Chl PHA 05/11/24 In Process 20meq/100ml 14:30 Date of Service: May 11, 2024 Billing Provider: AMERICA VAUGHN MD Common Visit Codes: [id number] CARE 30-74 MIN AMERICA VAUGHN MD May 11, 2024 19:44
[2024-05-11 20:44] LABS: Base Excess -0.8 mmol/L (-2.0-3.0)
[2024-05-11] MEDS: DOCUSATE SOD 100 MG CAP PO SCH (21:52)
[2024-05-11] MEDS: FUROSEMIDE 20 MG/2 ML VIAL ONE (22:51)
[2024-05-11] MEDS: ETOMIDATE (2MG/ML) 20ML VIAL IV ONE ×2 (22:56→23:07)
[2024-05-11] MEDS: ROCURONIUM 10MG/ML 10ML VIAL IV ONE ×2 (22:57→23:07)
[2024-05-11] MEDS: SUCCINYLCHOLINE CHLORIDE 20 MG/ML 10ML VIAL IV ONE (22:57)
[2024-05-11] MEDS: PROPOFOL 0 ML IV ONE (23:04)
[2024-05-11] MEDS: fentaNYL Drip 2500mCg/250mlNS 250 ML IV ONE (23:04)
[2024-05-11] MEDS: MIDAZOLAM DRIP 50 mg/50mL 50 ML IV ONE (23:06)
[2024-05-12] VITALS (16 sets, daily range): BP systolic 22–166; BP diastolic 17–91; PULSE 0–150; RESP 14–24; O2SAT 37–68
[2024-05-12] MEDS ORDERED: EPINEPHrine HCL 250 ML IV SCH (00:13)
[2024-05-12] MEDS: EPINEPHrine HCL 250 ML IV ONE (00:13)
[2024-05-12 00:42] LABS: Base Excess -10.2 mmol/L (-2.0-3.0)
[2024-05-12 00:49] LABS: INR 1.38 (0.9-1.15); Partial Thromboplastin Time 36.7 SEC (24.5-34.5); Prothrombin Time 14.2 sec (9.3-11.8)
[2024-05-12 00:53] LABS: Alanine Aminotransferase 47 U/L (7-40); Albumin 2.7 g/dL (3.2-4.8); Alkaline Phosphatase 114 U/L (46-116); Anion Gap 12 (5-15); Aspartate Aminotransferase 70 U/L (13-40); BUN/Creatinine Ratio 75.4 (10.0-20.0); Bilirubin, Total 0.8 mg/dL (0.2-1.0); Blood Urea Nitrogen 52 mg/dL (9-23); Calcium 11.5 mg/dL (8.7-10.4); Carbon Dioxide 25 mmol/L (20-31); Chloride 116 mmol/L (98-107); Glucose 139 mg/dL (74-106); Potassium 4.6 mmol/L (3.5-5.1); Sodium 153 mmol/L (136-145); Total Protein 4.8 g/dL (5.7-8.2)
[2024-05-12] MEDS: EPINEPHrine HCL 1 MG/10 ML SYRG ONE (00:58)
[2024-05-12] MEDS: PHENYLEPHRINE IV 250 ML IV ONE (01:04)
[2024-05-12] MEDS ORDERED: ATROPINE SULF 1 MG/10ml SYR IV ONE (01:09)
[2024-05-12] MEDS: SODIUM BICARB 8.4% 50Meq/50ml SYR INJ ONE (01:09)
[2024-05-12] MEDS: EPINEPHrine HCL 1 MG/1 ML AMP ONE (01:13)
--- NOTE | 2024-05-12 01:18 | ED.PDOC ---
Was a procedure done? Was a procedure done?: Yes Sedation Sedation?: No Central Line Recorder of insertion practice: General Assembler Occupation of upkeep mechanic: Attending Physician Indication: Hypotension, Volume resuscitation Room prepared for procedure: Yes General Assembler performed hand hygien: Yes Maximal sterile barrier precau: Mask/Eye shield, Sterile gown, Cap, Sterlie gloves, Large sterlie drape Skin Preparation: Chlorhexidine gluconate Skin preparation completely dr: Yes Insertion site: Right, Femoral Central line catheter type: [id number] dialysis Number of lumens: 3 Central line exchanged over a: Yes Antiseptic ointment applied to: Yes Post Assessment: Proper placement Informed consent obtained: No Risks/benefits/alt described: No Intubation Indication: Respiratory Insufficiency, Altered Mental Status, Airway Protection Prep: Preoxygenation Pretreated with: Other (Etomidate) Medicated with: Other (rocuronium) Intubation Approach: Orotracheal Intubation size: cm (8) Informed consent obtained: No Risks/benefits/alt described: No Other Procedure Procedure Right femoral artery line placement Indication pressors, and unstable vitals Prep Chlorhexadine Success Yes Informed consent obtained: No Risks, benefits, and alternati: No YANIRA YOON MD May 12, 2024 01:18
[2024-05-12] MEDS ORDERED: MIDAZOLAM DRIP 50 mg/50mL 50 ML IV SCH (02:45)
[2024-05-12] MEDS ORDERED: fentaNYL Drip 2500mCg/250mlNS 250 ML IV SCH (02:45)
--- NOTE | 2024-05-12 03:58 | RESUS ---
CODE BLUE ASSESSSMENT History of Events History of Events: Pt became bradycardic and pulses were lost. Code blue was then called. Pt code status - no compressions. Initial Information Date: May 12, 2024 Time: 00:11 Location of Arrest: [facility] Ar[facility] Witnessed: Yes Pre-Hospital Care: Pre-Code Care (inpatient) Type of arrest: Cardiac, Respiratory, Adult, Witnessed Spontaneous Respirations: No Pulse Present: No Monitoring: ECG, Pulse Oximetry, Capnography Crash Cart Opened and Supplies: Yes Airway Ventilation Breathing at Onset: Assisted O2 Sat by Pulse Oximetry: 96 Oxygen Delivery Method: Mechanical Ventilator Time of first Assisted Ventila: 00:11 Artificial Ventilation: Bag/Endo tube Intubation Size: 8.0 cuffed Intubated by: Dr. Farah Intubated orally: Yes Intubated Nasaly: No Tube secured at: 22 (cm- @lip) Confirmation: Auscultation, Chest X-ray Suctioning (Oral/Tracheal): Yes Comments: Placed during hospital stay, prior to code blue Circulation Circulation #1: Time: 00:11 Pulse Rate (adult): 0 Blood Pressure Systolic: 0 Blood Pressure Diastolic: 0 Temperature (Fahrenheit): 97.9 Circulation Comment: PEA Circulation #2: Time: 00:14 Pulse Rate (adult): 0 Blood Pressure Systolic: 0 Blood Pressure Diastolic: 0 Circulation Comment: PEA Circulation #3: Time: 00:16 Pulse Rate (adult): 0 Blood Pressure Systolic: 0 Blood Pressure Diastolic: 0 Circulation Comment: PEA Circulation #4: Time: 00:18 Pulse Rate (adult): 0 Blood Pressure Systolic: 0 Blood Pressure Diastolic: 0 Circulation Comment: PEA Circulation #5: Time: 00:19 Pulse Rate (adult): 139 Blood Pressure Systolic: 134 Blood Pressure Diastolic: 83 Circulation Comment: ROSC Circulation #6: Time: 00:48 Pulse Rate (adult): 0 Blood Pressure Systolic: 0 Blood Pressure Diastolic: 0 Circulation Comment: Second Code Blue started. Pt bradydown, and pulses was lost again Circulation #7: Time: 00:50 Pulse Rate (adult): 23 Blood Pressure Systolic: 37 Blood Pressure Diastolic: 19 Circulation Comment: ROSC Circulation #8: Time: 00:55 Pulse Rate (adult): 0 Blood Pressure Systolic: 0 Blood Pressure Diastolic: 0 Circulation Comment: Stayed bedside. Pt lost their pulse. PEA. CODE was called Circulation #9: Time: 00:57 Pulse Rate (adult): 45 Blood Pressure Systolic: 63 Blood Pressure Diastolic: 36 Circulation Comment: ROSC Circulation #10: Time: 01:06 Pulse Rate (adult): 0 Blood Pressure Systolic: 0 Blood Pressure Diastolic: 0 Circulation Comment: Stayed bedside. Pt lost their pulse. PEA. CODE was called Circulation #11: Time: 01:08 Pulse Rate (adult): 0 Blood Pressure Systolic: 0 Blood Pressure Diastolic: 0 Circulation Comment: asystole Circulation #12: Time: 01:10 Circulation Comment: TOD. Family bedside, requested to stop code. Pronounced by Zara CARDONA. Procedure - IV Procedure - IV #1: IV Side: Right IV Location: Upper Arm Anterior IV Catheter Type: Mid-line Comment placed during hospital stay prior to code Procedure - IV #2: IV Side: Right IV Location: Femoral IV Catheter Type: Triple Lumen Cath IV Placed: MD IV Line Care: Saline Flush Comment Placed during hospital stay placed prior to code Medications & Response Medications and Responses #1: Medication Time: 00:12 ADULT Medications Given ADULT: Epinephrine 1 mg Route of Administration: IV Heart Rate: 0 EKG Rhythm: PEA Blood Pressure Systolic: 0 Blood Pressure Diastolic: 0 EKG Rhythm: PEA Medications and Responses #2: Medication Time: 00:15 ADULT Medications Given ADULT: Epinephrine 1 mg Route of Administration: IV EKG Rhythm: PEA Blood Pressure Systolic: 0 Blood Pressure Diastolic: 0 Medications and Responses #3: Medication Time: 00:16 ADULT Medications Given ADULT: Calcium Chloride 10 mL Route of Administration: IV EKG Rhythm: PEA Medications and Responses #4: Medication Time: 00:18 ADULT Medications Given ADULT: Sodium Bacarbinate 50 meq Route of Administration: IV EKG Rhythm: PEA Blood Pressure Systolic: 0 Blood Pressure Diastolic: 0 EKG Rhythm: Sinus Tachycardia Comment ROSC 0019 Medications and Responses #5: Medication Time: 00:48 ADULT Medications Given ADULT: Epinephrine 1 mg EKG Rhythm: PEA EKG Rhythm: PEA Medications and Responses #6: Medication Time: 00:55 ADULT Medications Given ADULT: Epinephrine 1 mg, Calcium Chloride 10 mL Route of Administration: IV EKG Rhythm: PEA Blood Pressure Systolic: 0 Blood Pressure Diastolic: 0 EKG Rhythm: PEA Medications and Responses #7: Medication Time: 01:06 ADULT Medications Given ADULT: Epinephrine 1 mg, Sodium Bacarbinate 50 meq Route of Administration: IV EKG Rhythm: PEA Blood Pressure Systolic: 0 Blood Pressure Diastolic: 0 Medications and Responses #8: Medication Time: 01:09 ADULT Medications Given ADULT: Epinephrine 1 mg Route of Administration: IV EKG Rhythm: PEA EKG Rhythm: PEA Procedure - Central Venous Cat Central venous catheter site: Rt Femoral Comment: placed prior to code during hospital stay Procedure - Pan Catheter Urinary Catheter Type/Location: 2-way Urethral Urine Color: Yellow Pan Catheter Secured: Yes Comment: placed prior to code during hospital stay Nurses Notes [place] Coma Scale Eye Opening: None (1) [place] Coma Scale Verbal: None (1) [place]ilda Coma Scale Motor: None (1) [place] Total: 3 Pupil Reaction: Non Reactive (fixed) Bedside Blood Glucose: 122 Time Code Ended Time Code Ended: 01:10 Post Arrest Status: Outcome of code: Unsuccessful Patient pronounced by: Galo Zuñiga DNP Time patient pronounced: 01:10 Family notified: Yes Attending called: Yes Code Team Present: Galo Zuñiga DNP. Dr. Arvin Young RN- H/S Love Vargas RN H/S María Barnett, RN ICUCN Roxann Fulton, RT Janie Concepcion- ICURN; Garrett Sosa- ICURN; Olivia Mcclure- ICURN; Akua Avila - ICURN Post Resuscitation Neurologica Pupil Size: 7 Comment: fixed, non reactive ROSC Time of ROSC: 00:19 (First ROSC, Second ROSC @0050, 3rd ROSC @0057) Pt Meets Criteria for Therapeu: LOVE Ramos May 12, 2024 03:58
--- NOTE | 2024-05-14 10:25 | DVHDS ---
DATE OF DISCHARGE: 05/12/2024 HISTORY OF PRESENT ILLNESS: The patient is a 44-year-old lady who was admitted with history of seizure activity and has history of Alzheimer's dementia, sacral decubitus and a bedbound status. HOSPITAL COURSE: The patient had a wound culture positive for Staph aureus. The patient was in acute renal failure. The patient was placed on intravenous antibiotics. The patient had a brain MRI that showed evidence of moderate diffuse brain atrophy. She was seen in Neurology consult by Dr. Peguero. The patient continued to do poorly, with poor oral intake. The patient, on 05/12/2024, went into cardiorespiratory arrest. The patient underwent CPR and could not be resuscitated. FINAL DIAGNOSES: Therefore, * Decubitus ulcer with sepsis secondary to Staphylococcus aureus. * Urinary tract infection. * Alzheimer's dementia of the Devan variant. * Severe malnutrition. * Anemia. * New onset seizure. * Acute renal failure, likely vasomotor nephropathy. * Functional quadriplegia. * Likely aspiration pneumonia. MD JIM Betancur/WINIFRED TID: [id number] RECEIPT: [id number]
--- NOTE | 2024-05-17 14:03 | DVH ---
CHEST RADIOGRAPH Indication: INTUBATION Technique: Single frontal view of the chest was obtained COMPARISON: XY CHEST XRAY 1 VIEW on DOS: 05/11/24, XY CHEST PORTABLE on DOS: 05/10/24, XY CHEST PORTABLE on DOS: 05/09/24, XY CHEST PORTABLE on DOS: 05/04/24, XY CHEST PORTABLE on DOS: 03/12/24 FINDINGS: Lines and Tubes: Interval insertion of ETT the tip of which is approximately 2 cm above the osmar. Lungs: There are infiltrates in bilateral mid to lower lung greater on the right side consistent with pneumonia, considerably progressed compared to the prior chest x-ray from earlier the same day. Pleura: No effusion. No pneumothorax. Cardiomediastinal contours: Unremarkable Bones: Unremarkable IMPRESSION: ETT in satisfactory position. Infiltrates in bilateral mid to lower lung greater on the right side consistent with pneumonia, considerably progressed compared to the prior chest x-ray from earlier the same day. A VILLALOBOS
== END 2024-05-12 01:10 | DRG 720 ==
LOC: ER 09:36 → EDBD 09:36 → EDUNIT# 09:36 → OVERFLOW 16:38 → WEST WING 16:39 → OVERFLOW 16:39 → WEST WING 22:25 → TELE-WESTW 05-08 05:08 → ICU CENTRL 05-11 18:07
PROVIDERS: ADMIT Hospitalist; ATTEND Hospitalist
PROC: 5A09357 Assistance with Respiratory Ventilation, Less than 24 Consecutive Hours, Continuous Positive Airway Pressure (ICD-10-PCS; 2024-05-11)
PROC: 06HY33Z Insertion of Infusion Device into Lower Vein, Percutaneous Approach (ICD-10-PCS; principal; 2024-05-12)
PROC: 5A1935Z Respiratory Ventilation, Less than 24 Consecutive Hours (ICD-10-PCS; 2024-05-12)
PROC: 0BH17EZ Insertion of Endotracheal Airway into Trachea, Via Natural or Artificial Opening (ICD-10-PCS; 2024-05-12)
PROC: 04HY32Z Insertion of Monitoring Device into Lower Artery, Percutaneous Approach (ICD-10-PCS; 2024-05-12)
DX: A41.01 Sepsis due to Methicillin susceptible Staphylococcus aureus (principal); J96.01 Acute respiratory failure with hypoxia; J69.0 Pneumonitis due to inhalation of food and vomit; N17.0 Acute kidney failure with tubular necrosis; R65.21 Severe sepsis with septic shock; E43 Unspecified severe protein-calorie malnutrition; R64 Cachexia; G93.41 Metabolic encephalopathy; L89.159 Pressure ulcer of sacral region, unspecified stage; G40.909 Epilepsy, unspecified, not intractable, without status epilepticus; R53.2 Functional quadriplegia; I46.9 Cardiac arrest, cause unspecified; F02.80 Dementia in other diseases classified elsewhere, unspecified severity, without behavioral disturbance, psychotic disturbance, mood disturbance, and anxiety; G30.9 Alzheimer's disease, unspecified; D64.9 Anemia, unspecified; N39.0 Urinary tract infection, site not specified; K59.81 Ogilvie syndrome; E87.70 Fluid overload, unspecified; Z88.5 Allergy status to narcotic agent; Z74.01 Bed confinement status; Z90.49 Acquired absence of other specified parts of digestive tract; Z82.0 Family history of epilepsy and other diseases of the nervous system; Z68.1 Body mass index [BMI] 19.9 or less, adult
CPT/HCPCS: 36415; 36556; 36600; 36620; 70450; 70551; 71045; 74018; 74021; 80048; 80053; 80069; 80202; 81001; 81025; 82140; 82805; 82962; 83605; 83735; 83880; 84100; 84484; 85025; 85379; 85610; 85730; 87040; 87077; 87086; 87186; 87205; 92610; 92950; 93005; 94002; 94660; 96365; 96367; G0378; J0171; J0330; J1265; J1815; J2003; J2405; J2543; J2704; J3480